=== PATIENT | female | born 1960 | race Caucasian/White ===

== ENCOUNTER 2018-01-13 13:14 | Emergency (ER) | payer MEDICARE, MEDICAID, SELFPAY ==
[2018-01-13] VITALS (49 sets, daily range): BP systolic 117–153; BP diastolic 55–100; PULSE 57–88; RESP 11–27; TEMP 36.7; O2SAT 93–100
--- NOTE | 2018-01-13 13:58 | DI.RAD_ITS ---
SYMPTOMS/DIAGNOSIS: CHEST PAIN CHEST X-RAY, PA AND LATERAL: Comparison is 01/06/11. The heart is normal in size. The lungs are clear. The mediastinal structures and pleura appear intact. IMPRESSION: Normal chest.
[2018-01-13] MEDS: Aspirin 81 MG CHEW 243 MG CH (14:29)
[2018-01-13 14:36] LABS: Abs Immature Grans 0.02 k/cumm (0.0-0.09); Absolute Basophil Count 0.05 k/cumm (0.0-0.2); Absolute Eosinophil Count 0.15 k/cumm (0.0-0.7); Absolute Lymphocyte Count 1.87 k/cumm (1.2-3.4); Absolute Monocyte Count 0.41 k/cumm (0.11-0.7); Absolute Neutrophil Count 2.91 k/cumm (1.2-6.7); Basophils % 0.9; Eosinophils % 2.8; HCT 38.4 % (36.0-46.0); HGB 12.7 g/dL (12.0-15.5); Immature Grans % 0.4; Lymphocytes % 34.6; Mean Corp. HGB Concentration 33.1 g/dL (32.0-36.0); Mean Corpuscular Volume 90.8 fL (80-95); Mean Platelet Volume 9.5 fL (8.0-11.0); Monocytes % 7.6; Neutrophils % 53.7; Platelet Count 217 x1000/uL (130-400); RBC 4.23 m/cumm (4.00-5.20); RBC Distribution Width 12.9 % (11.7-14.6); White Blood Cell Count 5.41 k/cumm (4.4-10.8)
[2018-01-13 15:10] LABS: ALT 49 U/L (12-78); AST 31 U/L (15-37); Albumin 3.7 g/dL (3.4-5.0); Alkaline Phosphatase 118 U/L (46-116); BUN 13 mg/dL (7-18); Bilirubin, Total 0.2 mg/dL (0.2-1.0); CREATININE 0.78 mg/dL (0.55-1.02); Calcium 8.6 mg/dL (8.5-10.1); Chloride 102 mmol/L (98-107); Glucose 184 mg/dL (70-100); Magnesium 1.9 mg/dL (1.8-2.4); NT-proBNP 27 pg/mL; Potassium 3.7 mmol/L (3.5-5.1); Sodium 140 mmol/L (136-145); Total Protein 7.6 g/dL (6.4-8.2)
[2018-01-13 15:28] LABS: Troponin I < 0.02 ng/mL (0.00-0.06)
[2018-01-13 18:16] LABS: Troponin I < 0.02 ng/mL (0.00-0.06)
--- NOTE | 2018-01-13 18:23 | W.ED.GENAD ---
Discharge Plan Disposition Patient Disposition: HOME Condition: Improving Discharge Details Chief Complaint: Chest Pain Clinical Impression: Chest pain, atypical Primary Care Provider: Etelvina Villela ED Provider: Hill Leone Home Meds and New Rx's Prescriptions: No Action calcium citrate-vitamin D3 1 EACH tablet 2 tab PO HS RF: 0 vitamin B complex 1 EACH capsule 1 cap PO DAILY RF: 0 cinnamon bark 500 MG capsule 1 cap PO BID RF: 0 blood sugar diagnostic [Blood Glucose Test] 1 EACH strip 1 ea Miscellaneous DAILY Qty: 100 RF: 4 lidocaine-prilocaine 30 GM cream 30 gm Topical Q4H PRN Qty: 3 RF: 6 duloxetine [Cymbalta] 60 MG capsule,delayed release(DR/EC) 60 mg PO DAILY Qty: 90 RF: 3 metformin 500 MG tablet 500 mg PO BID Qty: 180 RF: 4 carbamazepine 200 MG tablet 200 mg PO BID Qty: 180 RF: 3 levothyroxine 125 MCG tablet 125 mcg PO DAILY Qty: 90 RF: 4 pravastatin 20 MG tablet 20 mg PO DAILY Qty: 90 RF: 4 naproxen 500 MG tablet 500 mg PO BID Qty: 60 RF: 4 cyclobenzaprine 5 MG tablet 5 mg PO tid prn Qty: 20 RF: 0 aspirin [Aspirin Low-Strength] 81 MG tablet,chewable 81 mg PO DAILY RF: 0 Discharge Instructions Instructions: Chest Pain (ED) Additional Instructions: Return immediately to the emergency department for any new or worsening symptoms otherwise continue to take your medications as prescribed and follow-up with your primary care provider next week for reexamination. Referrals: Etelvina Villela NP [Primary Care Provider] - 5 days Discharge Data Discharge Date/Time-TO BE ENTERED AT DEPARTURE: 01/13/18 18:30 Medical Decision Making Patient presenting to the emergency department for chest pain and shortness of breath. Patient reports that she has a history of an abnormal valve but is unsure what this is. Patient denies ever having symptoms like this before. Patient states pain is 7 out of 10 and activity does not seem to improve or worsen her symptoms. Physical exam is unremarkable and there is no murmur appreciated on exam at this time and pulmonary exam is also unremarkable. Plan to do labs and rule out ACS along with chest x-ray. Patient offered pain medication but denied need for any medication at this time. Review of initial labs showed negative troponin and otherwise unremarkable nondiagnostic labs.. Plan to perform second troponin to rule out ACS completely.. Patient reassessed and stated some improvement in discomfort but with some radiation of pain into the back. I reexamined the chest and still had no cardiac findings but did note some reproducible chest pain that seemed to worsen patient's symptoms when pressing on the left mid axillary region. This makes me have a suspicious more of a chest wall pain compared to cardiac nature but still plan on following through with second troponin. After review of second patient reassessed again states pain is significantly down and that she feels like she is ready to go home. Does patient diagnosed with atypical chest pain and informed that he should return for any new or worsening symptoms otherwise placed upon care management was to have a follow-up appointment preferably in the next 5 days for reassessment. After discussion of diagnosis and plan of care patient is no further needs, questions, or concerns and states clear understanding to return to the emergency department for any worsening symptoms. HPI General Mode of arrival: ambulatory. Date/Time Provider Initiated Documentation: 01/13/18 13:46. Limitations to Documentation: no limitations. Information obtained by: patient and RN notes reviewed. History of Present Illness 57 year old F presents to the emergency department with the chief complaint of Chest pain, described as moderate, with intensity rated at 7. Quality is described as aching and sharp, and is localized to the chest. Patient reports radiation to back. Patient started experiencing this hour(s) (3) and it has been constant. No relieving factors improve symptom(s), No exacerbating factors reported . Patient notes no other symptoms.. Patient did receive the following treatments prior to arrival, none Related Data Home Medications Medication Instructions Recorded Confirmed calcium citrate-vitamin D3 2 tab PO HS 07/06/12 01/13/18 vitamin B complex 1 cap PO DAILY 07/06/12 01/13/18 cinnamon bark 1 cap PO BID 07/07/12 01/13/18 aspirin [Aspirin Low-Strength] 81 mg PO DAILY 12/21/13 01/13/18 blood sugar diagnostic [Blood #100 strip 10/08/14 01/13/18 Glucose Test] lidocaine-prilocaine 30 gm TOPICAL Q4H PRN #3 tube 12/10/15 01/13/18 duloxetine [Cymbalta] 60 mg PO DAILY #90 tab-cap 12/23/16 01/13/18 carbamazepine 200 mg PO BID #180 tab-cap 02/02/17 01/13/18 cyclobenzaprine 5 mg PO tid prn #20 tab-cap 02/02/17 01/13/18 levothyroxine 125 mcg PO DAILY #90 tab-cap 02/02/17 01/13/18 metformin 500 mg PO BID #180 tab-cap 02/02/17 01/13/18 naproxen 500 mg PO BID #60 mg 02/02/17 01/13/18 pravastatin 20 mg PO DAILY #90 tab-cap 02/02/17 01/13/18 Previous Rx's Medication Instructions Recorded carbamazepine 200 mg PO BID #180 tab-cap 02/02/17 cyclobenzaprine 5 mg PO tid prn #20 tab-cap 02/02/17 levothyroxine 125 mcg PO DAILY #90 tab-cap 02/02/17 metformin 500 mg PO BID #180 tab-cap 02/02/17 naproxen 500 mg PO BID #60 mg 02/02/17 pravastatin 20 mg PO DAILY #90 tab-cap 02/02/17 Allergies Allergy/AdvReac Type Severity Reaction Status Date / Time Penicillins Allergy Severe Anaphylaxsi Unverified 01/13/18 13:38 s mushroom Allergy Intermediate Hives Unverified 01/13/18 13:38 zonisamide Allergy Intermediate Generalized Unverified 01/13/18 13:38 rash shellfish derived Allergy Unverified 01/13/18 13:38 prednisone AdvReac Intermediate lucid Unverified 01/13/18 13:38 dreams simvastatin AdvReac Intermediate Myalgias Unverified 01/13/18 13:38 ibuprofen AdvReac Rectal Unverified 01/13/18 13:38 bleeding sulfamerazine AdvReac Myalgias Unverified 01/13/18 13:38 General Stated Complaint: Chest Pain PAM: 2 Review of Systems Constitutional Denies body ache(s), Denies chills, Denies fever(s), Denies lethargy and Denies malaise Eyes Denies change in vision ENT Denies dizziness Cardiovascular Reports as per HPI, Reports chest pain, Denies diaphoresis, Denies syncope, Denies rapid heart rate, Denies leg edema, Denies lightheadedness, Denies palpitations and Denies dyspnea Respiratory Denies cough, Denies pain with cough and Denies dyspnea Gastrointestinal Denies abdominal pain, Reports heartburn, Denies nausea and Denies vomiting Genitourinary Denies dysuria Neurologic Denies dizziness and Denies syncope Endocrine Denies palpitations PFS Family History Mother Diabetes Mental disorder Father No problems noted. Sister No problems noted. Grandfather Essential hypertension Grandfather No problems noted. Grandmother No problems noted. Grandmother No problems noted. Sister No problems noted. Sister No problems noted. Son No problems noted. Daughter Depression Medical History DM (diabetes mellitus screen) Diabetic peripheral neuropathy Fibromyalgia Heart murmur Hypothyroidism Social History Smoking/Tobacco Use Status: Former Tobacco Use Surgical History Abdominal hysterectomy (~1993) Arthroplasty of knee (01/12/10) Colonoscopy - MAC (02/06/16) EXCISION OF (~1986) Oophrectomy, Both (~2003) Open Carpal Tunnel release Thyroid (~2002) Exam Const General: cooperative, healthy appearing, comfortable and no acute distress Nutritional Appearance: average body habitus Orientation: alert, awake and oriented x3 Neck Neck: normal visual inspection, full ROM, no lymphadenopathy, no meningeal signs, trachea midline, supple, no tracheal deviation and no JVD Resp Effort & Inspection: normal respiratory effort and able to speak in complete sentences Auscultation: clear to auscultation bilaterally Cardio Rate: regular rate Rhythm: regular rhythm Heart Sounds: S1 normal, S2 normal, normal S1 and S2, no click, no gallops, no murmurs and no rubs Bruits: no abdominal aortic bruits and no carotid bruits Pulses: radial pulses present bilaterally 2+ GI Inspection: normal to inspection Palpation: soft and no hepatosplenomegaly Auscultation: normal bowel sounds Skin General skin exam: no rashes or lesions noted and dry skin Neuro General: alert, awake, oriented x3, gait normal, tone normal, moves all extremities and no focal motor deficits Course Vital Signs Respiratory Rate 13 01/13/18 13:22 Pulse Oximetry 97 01/13/18 13:22 Temperature 36.7 C 01/13/18 13:28 Temperature Source Skin 01/13/18 13:28 Pulse 69 01/13/18 18:15 Pulse 76 01/13/18 18:15 Respiratory Rate 22 01/13/18 18:15 Respiratory Effort 01/13/18 15:47 Respiratory Depth Normal 01/13/18 15:47 Respiratory Pattern Normal 01/13/18 15:47 Blood Pressure 134/72 01/13/18 18:15 Blood Pressure Mean 87 01/13/18 18:15 Blood Pressure Position Sitting 01/13/18 13:28 Pulse Oximetry 97 01/13/18 18:15 Oxygen Delivery Method Room Air 01/13/18 13:28 Oxygen Flow Rate 0 01/13/18 13:28 Pain Level 7 01/13/18 13:28 Lab/Test Results Lab/Test Results: Laboratory Tests Range/Units 01/13/18 01/13/18 01/13/18 13:35 13:35 17:35 WBC (4.4-10.8) k/cumm 5.41 RBC (4.00-5.20) m/cumm 4.23 Hgb (12.0-15.5) g/dL 12.7 Hct (36.0-46.0) % 38.4 MCV (80-95) fL 90.8 MCH (27.0-33.0) pg 30.0 MCHC (32.0-36.0) g/dL 33.1 RDW (11.7-14.6) % 12.9 Plt Count (130-400) x1000/uL 217 MPV (8.0-11.0) fL 9.5 Immature Gran % 0.4 Neutrophils % 53.7 Lymphocytes % 34.6 Monocytes % 7.6 Eosinophils % 2.8 Basophils % 0.9 Absolute Neutrophils (1.2-6.7) k/cumm 2.91 Absolute Lymphocytes (1.2-3.4) k/cumm 1.87 Absolute Monocytes (0.11-0.7) k/cumm 0.41 Absolute Eosinophils (0.0-0.7) k/cumm 0.15 Absolute Basophils (0.0-0.2) k/cumm 0.05 Sodium (136-145) mmol/L 140 Potassium (3.5-5.1) mmol/L 3.7 Chloride (98-107) mmol/L 102 Carbon Dioxide (21.0-32.0) mmol/L 28.0 Anion Gap (3-11) mmol/L 10.0 BUN (7-18) mg/dL 13 Creatinine (0.55-1.02) mg/dL 0.78 Estimated GFR/1.73 m2 (mL/min/1.73m2) >= 60.00 Glucose (70-100) mg/dL 184 H Calcium (8.5-10.1) mg/dL 8.6 Magnesium (1.8-2.4) mg/dL 1.9 Total Bilirubin (0.2-1.0) mg/dL 0.2 AST (15-37) U/L 31 ALT (12-78) U/L 49 Alkaline Phosphatase (46-116) U/L 118 H Troponin I (0.00-0.06) ng/mL < 0.02 < 0.02 NT-Pro-B Natriuret Pep ( - 299) pg/mL 27 Total Protein (6.4-8.2) g/dL 7.6 Albumin (3.4-5.0) g/dL 3.7
--- NOTE | 2018-01-13 18:26 | ED.GENADUL_ITS ---
Discharge Plan Disposition Patient Disposition: HOME Condition: Improving Discharge Details Chief Complaint: Chest Pain Clinical Impression: Chest pain, atypical Primary Care Provider: Etelvina Villela ED Provider: Hill Leone Home Meds and New Rx's Prescriptions: No Action calcium citrate-vitamin D3 1 EACH tablet 2 tab PO HS RF: 0 vitamin B complex 1 EACH capsule 1 cap PO DAILY RF: 0 cinnamon bark 500 MG capsule 1 cap PO BID RF: 0 blood sugar diagnostic [Blood Glucose Test] 1 EACH strip 1 ea Miscellaneous DAILY Qty: 100 RF: 4 lidocaine-prilocaine 30 GM cream 30 gm Topical Q4H PRN Qty: 3 RF: 6 duloxetine [Cymbalta] 60 MG capsule,delayed release(DR/EC) 60 mg PO DAILY Qty: 90 RF: 3 metformin 500 MG tablet 500 mg PO BID Qty: 180 RF: 4 carbamazepine 200 MG tablet 200 mg PO BID Qty: 180 RF: 3 levothyroxine 125 MCG tablet 125 mcg PO DAILY Qty: 90 RF: 4 pravastatin 20 MG tablet 20 mg PO DAILY Qty: 90 RF: 4 naproxen 500 MG tablet 500 mg PO BID Qty: 60 RF: 4 cyclobenzaprine 5 MG tablet 5 mg PO tid prn Qty: 20 RF: 0 aspirin [Aspirin Low-Strength] 81 MG tablet,chewable 81 mg PO DAILY RF: 0 Discharge Instructions Instructions: Chest Pain (ED) Additional Instructions: Return immediately to the emergency department for any new or worsening symptoms otherwise continue to take your medications as prescribed and follow- up with your primary care provider next week for reexamination. Referrals: Etelvina Villela NP [Primary Care Provider] - 5 days Discharge Data Discharge Date/Time-TO BE ENTERED AT DEPARTURE: 01/13/18 18:30 Medical Decision Making Patient presenting to the emergency department for chest pain and shortness of breath. Patient reports that she has a history of an abnormal valve but is unsure what this is. Patient denies ever having symptoms like this before. Patient states pain is 7 out of 10 and activity does not seem to improve or worsen her symptoms. Physical exam is unremarkable and there is no murmur appreciated on exam at this time and pulmonary exam is also unremarkable. Plan to do labs and rule out ACS along with chest x-ray. Patient offered pain medication but denied need for any medication at this time. Review of initial labs showed negative troponin and otherwise unremarkable nondiagnostic labs.. Plan to perform second troponin to rule out ACS completely.. Patient reassessed and stated some improvement in discomfort but with some radiation of pain into the back. I reexamined the chest and still had no cardiac findings but did note some reproducible chest pain that seemed to worsen patient's symptoms when pressing on the left mid axillary region. This makes me have a suspicious more of a chest wall pain compared to cardiac nature but still plan on following through with second troponin. After review of second patient reassessed again states pain is significantly down and that she feels like she is ready to go home. Does patient diagnosed with atypical chest pain and informed that he should return for any new or worsening symptoms otherwise placed upon care management was to have a follow- up appointment preferably in the next 5 days for reassessment. After discussion of diagnosis and plan of care patient is no further needs, questions , or concerns and states clear understanding to return to the emergency department for any worsening symptoms. HPI General Mode of arrival: ambulatory . Date/Time Provider Initiated Documentation: 01/13/18 13:46 . Limitations to Documentation: no limitations . Information obtained by: patient and RN notes reviewed . History of Present Illness 57 year old F presents to the emergency department with the chief complaint of Chest pain, described as moderate, with intensity rated at 7. Quality is described as aching and sharp, and is localized to the chest. Patient reports radiation to back. Patient started experiencing this hour(s) (3) and it has been constant. No relieving factors improve symptom(s), No exacerbating factors reported . Patient notes no other symptoms.. Patient did receive the following treatments prior to arrival, none Related Data Home Medications Medication Instructions Recorded Confirmed calcium citrate-vitamin D3 2 tab PO HS 07/06/12 01/13/18 vitamin B complex 1 cap PO DAILY 07/06/12 01/13/18 cinnamon bark 1 cap PO BID 07/07/12 01/13/18 aspirin [Aspirin Low-Strength] 81 mg PO DAILY 12/21/13 01/13/18 blood sugar diagnostic [Blood #100 strip 10/08/14 01/13/18 Glucose Test] lidocaine-prilocaine 30 gm TOPICAL Q4H PRN #3 tube 12/10/15 01/13/18 duloxetine [Cymbalta] 60 mg PO DAILY #90 tab-cap 12/23/16 01/13/18 carbamazepine 200 mg PO BID #180 tab-cap 02/02/17 01/13/18 cyclobenzaprine 5 mg PO tid prn #20 tab-cap 02/02/17 01/13/18 levothyroxine 125 mcg PO DAILY #90 tab-cap 02/02/17 01/13/18 metformin 500 mg PO BID #180 tab-cap 02/02/17 01/13/18 naproxen 500 mg PO BID #60 mg 02/02/17 01/13/18 pravastatin 20 mg PO DAILY #90 tab-cap 02/02/17 01/13/18 Previous Rx's Medication Instructions Recorded carbamazepine 200 mg PO BID #180 tab-cap 02/02/17 cyclobenzaprine 5 mg PO tid prn #20 tab-cap 02/02/17 levothyroxine 125 mcg PO DAILY #90 tab-cap 02/02/17 metformin 500 mg PO BID #180 tab-cap 02/02/17 naproxen 500 mg PO BID #60 mg 02/02/17 pravastatin 20 mg PO DAILY #90 tab-cap 02/02/17 Allergies Allergy/AdvReac Type Severity Reaction Status Date / Time Penicillins Allergy Severe Anaphylaxsi Unverified 01/13/18 13:38 s mushroom Allergy Intermediate Hives Unverified 01/13/18 13:38 zonisamide Allergy Intermediate Generalized Unverified 01/13/18 13:38 rash shellfish derived Allergy Unverified 01/13/18 13:38 prednisone AdvReac Intermediate lucid Unverified 01/13/18 13:38 dreams simvastatin AdvReac Intermediate Myalgias Unverified 01/13/18 13:38 ibuprofen AdvReac Rectal Unverified 01/13/18 13:38 bleeding sulfamerazine AdvReac Myalgias Unverified 01/13/18 13:38 General Stated Complaint: Chest Pain PAM: 2 Review of Systems Constitutional Denies body ache(s), Denies chills, Denies fever(s), Denies lethargy and Denies malaise Eyes Denies change in vision ENT Denies dizziness Cardiovascular Reports as per HPI, Reports chest pain, Denies diaphoresis, Denies syncope, Denies rapid heart rate, Denies leg edema, Denies lightheadedness, Denies palpitations and Denies dyspnea Respiratory Denies cough, Denies pain with cough and Denies dyspnea Gastrointestinal Denies abdominal pain, Reports heartburn, Denies nausea and Denies vomiting Genitourinary Denies dysuria Neurologic Denies dizziness and Denies syncope Endocrine Denies palpitations PFS Family History Mother Diabetes Mental disorder Father No problems noted. Sister No problems noted. Grandfather Essential hypertension Grandfather No problems noted. Grandmother No problems noted. Grandmother No problems noted. Sister No problems noted. Sister No problems noted. Son No problems noted. Daughter Depression Medical History DM (diabetes mellitus screen) Diabetic peripheral neuropathy Fibromyalgia Heart murmur Hypothyroidism Social History Smoking/Tobacco Use Status: Former Tobacco Use Surgical History Abdominal hysterectomy (~1993) Arthroplasty of knee (01/12/10) Colonoscopy - MAC (02/06/16) EXCISION OF (~1986) Oophrectomy, Both (~2003) Open Carpal Tunnel release Thyroid (~2002) Exam Const General: cooperative, healthy appearing, comfortable and no acute distress Nutritional Appearance: average body habitus Orientation: alert, awake and oriented x3 Neck Neck: normal visual inspection, full ROM, no lymphadenopathy, no meningeal signs , trachea midline, supple, no tracheal deviation and no JVD Resp Effort & Inspection: normal respiratory effort and able to speak in complete sentences Auscultation: clear to auscultation bilaterally Cardio Rate: regular rate Rhythm: regular rhythm Heart Sounds: S1 normal, S2 normal, normal S1 and S2, no click, no gallops, no murmurs and no rubs Bruits: no abdominal aortic bruits and no carotid bruits Pulses: radial pulses present bilaterally 2+ GI Inspection: normal to inspection Palpation: soft and no hepatosplenomegaly Auscultation: normal bowel sounds Skin General skin exam: no rashes or lesions noted and dry skin Neuro General: alert, awake, oriented x3, gait normal, tone normal, moves all extremities and no focal motor deficits Course Vital Signs Respiratory Rate 13 01/13/18 13:22 Pulse Oximetry 97 01/13/18 13:22 Temperature 36.7 C 01/13/18 13:28 Temperature Source Skin 01/13/18 13:28 Pulse 69 01/13/18 18:15 Pulse 76 01/13/18 18:15 Respiratory Rate 22 01/13/18 18:15 Respiratory Effort 01/13/18 15:47 Respiratory Depth Normal 01/13/18 15:47 Respiratory Pattern Normal 01/13/18 15:47 Blood Pressure 134/72 01/13/18 18:15 Blood Pressure Mean 87 01/13/18 18:15 Blood Pressure Position Sitting 01/13/18 13:28 Pulse Oximetry 97 01/13/18 18:15 Oxygen Delivery Method Room Air 01/13/18 13:28 Oxygen Flow Rate 0 01/13/18 13:28 Pain Level 7 01/13/18 13:28 Lab/Test Results Lab/Test Results: Laboratory Tests Range/Units 01/13/18 01/13/18 01/13/18 13:35 13:35 17:35 WBC (4.4-10.8) k/cumm 5.41 RBC (4.00-5.20) m/cumm 4.23 Hgb (12.0-15.5) g/dL 12.7 Hct (36.0-46.0) % 38.4 MCV (80-95) fL 90.8 MCH (27.0-33.0) pg 30.0 MCHC (32.0-36.0) g/dL 33.1 RDW (11.7-14.6) % 12.9 Plt Count (130-400) x1000/uL 217 MPV (8.0-11.0) fL 9.5 Immature Gran % 0.4 Neutrophils % 53.7 Lymphocytes % 34.6 Monocytes % 7.6 Eosinophils % 2.8 Basophils % 0.9 Absolute Neutrophils (1.2-6.7) k/cumm 2.91 Absolute Lymphocytes (1.2-3.4) k/cumm 1.87 Absolute Monocytes (0.11-0.7) k/cumm 0.41 Absolute Eosinophils (0.0-0.7) k/cumm 0.15 Absolute Basophils (0.0-0.2) k/cumm 0.05 Sodium (136-145) mmol/L 140 Potassium (3.5-5.1) mmol/L 3.7 Chloride (98-107) mmol/L 102 Carbon Dioxide (21.0-32.0) mmol/L 28.0 Anion Gap (3-11) mmol/L 10.0 BUN (7-18) mg/dL 13 Creatinine (0.55-1.02) mg/dL 0.78 Estimated GFR/1.73 m2 (mL/min/1.73m2) >= 60.00 Glucose (70-100) mg/dL 184 H Calcium (8.5-10.1) mg/dL 8.6 Magnesium (1.8-2.4) mg/dL 1.9 Total Bilirubin (0.2-1.0) mg/dL 0.2 AST (15-37) U/L 31 ALT (12-78) U/L 49 Alkaline Phosphatase (46-116) U/L 118 H Troponin I (0.00-0.06) ng/mL < 0.02 < 0.02 NT-Pro-B Natriuret Pep ( - 299) pg/mL 27 Total Protein (6.4-8.2) g/dL 7.6 Albumin (3.4-5.0) g/dL 3.7
== END 2018-01-13 18:30 | disposition home or self-care (01) ==
PROVIDERS: Emergency Provider Nurse Practitioner Family; PCP Nurse Practitioner Family
DX: R07.89 Other chest pain (principal); E11.40 Type 2 diabetes mellitus with diabetic neuropathy, unspecified; Z79.84 Long term (current) use of oral hypoglycemic drugs
CPT/HCPCS: 36415; 80053; 93005; 99285; 71046; 83735; 83880; 84484; 85025; 93010; 99282

== ENCOUNTER 2018-01-16 18:27 | Emergency (ER) | payer MEDICARE, MEDICAID, SELFPAY ==
[2018-01-16 18:32] VITALS: BP 125/58; PULSE 76; RESP 18; TEMP 36.8; O2SAT 97
--- NOTE | 2018-01-16 18:47 | DI.CT_ITS ---
SYMPTOM/DIAGNOSIS: CHEST PAIN, RADIATES TO BACK CT ANGIOGRAPHY CHEST, ABDOMEN AND PELVIS: 01/16 CT angiography of the chest, abdomen and pelvis was performed with intravenous infusion of 100 cc Omnipaque 350. The lungs are clear except for a tiny calcified left lower lobe intrapulmonary nodule consistent with healed granulomatous disease. Tracheobronchial tree appears intact. No mediastinal hilar axillary or supraclavicular adenopathy. Thoracic aorta and major branches are normal. No evidence of pulmonary embolic disease. No pleural effusion seen. Liver appears mildly enlarged and there is probable hepatic steatosis. Spleen is unremarkable in appearance. Gallbladder and bile ducts are normal. Pancreas is unremarkable in appearance. Adrenals and kidneys appear normal. No urinary tract calcification or obstruction. No abdominal or pelvic adenopathy. No abdominal wall hernia. Appendix appears normal. There is question of mild wall thickening of multiple loops of mid to distal small bowel and possibly ascending colon as well. The findings are questionable but could be associated with enteritis. Please correlate clinically. No fat edema seen in the mesentery or retroperitoneum. Abdominal aorta shows moderately calcified wall. No aneurysm or dissection. Major arterial branches appear normal. CONCLUSION: No evidence of acute aortic dissection or aneurysm. Question wall thickening, small bowel and ascending colon, please correlate clinically.
--- NOTE | 2018-01-16 18:49 | W.ED.GENAD ---
Discharge Plan Disposition Patient Disposition: HOME Condition: Good Discharge Details Chief Complaint: Chest Pain Clinical Impression: Hypothyroidism, Chest pain, Chest pain, musculoskeletal, History of IBS Primary Care Provider: Etelvina Villela ED Provider: Anthony Vega Home Meds and New Rx's Prescriptions: No Action calcium citrate-vitamin D3 1 EACH tablet 2 tab PO HS RF: 0 vitamin B complex 1 EACH capsule 1 cap PO DAILY RF: 0 cinnamon bark 500 MG capsule 1 cap PO BID RF: 0 blood sugar diagnostic [Blood Glucose Test] 1 EACH strip 1 ea Miscellaneous DAILY Qty: 100 RF: 4 lidocaine-prilocaine 30 GM cream 30 gm Topical Q4H PRN Qty: 3 RF: 6 duloxetine [Cymbalta] 60 MG capsule,delayed release(DR/EC) 60 mg PO DAILY Qty: 90 RF: 3 metformin 500 MG tablet 500 mg PO BID Qty: 180 RF: 4 carbamazepine 200 MG tablet 200 mg PO BID Qty: 180 RF: 3 levothyroxine 125 MCG tablet 125 mcg PO DAILY Qty: 90 RF: 4 pravastatin 20 MG tablet 20 mg PO DAILY Qty: 90 RF: 4 naproxen 500 MG tablet 500 mg PO BID Qty: 60 RF: 4 cyclobenzaprine 5 MG tablet 5 mg PO tid prn Qty: 20 RF: 0 aspirin [Aspirin Low-Strength] 81 MG tablet,chewable 81 mg PO DAILY RF: 0 Discharge Instructions Instructions: Chest Pain (ED), Hypothyroidism (ED) Additional Instructions: Please follow-up with your primary care provider for alteration of your levothyroxine dose. I do feel that you would benefit from an increase in your levothyroxine dose. Please follow-up with your diet technician registered as soon as possible for reassessment. Please avoid any spicy foods, and drink plenty of water. If you notice any worsening of your symptoms, or any new symptoms such as vomiting, diarrhea, fever, chills, shortness of breath, chest pain, numbness, weakness, or fainting , please return immediately to the emergency department for reevaluation. Please follow up with your primary care provider as soon as possible for reassessment and reevaluation. As always, it was a pleasure participating in your medical care today. Referrals: Etelvina Villela NP [Primary Care Provider] - Medical Decision Making This is a 57-year-old female who presents for evaluation of chest pain. She was seen in the emergency department within the last 4 days and had a negative cardiac workup with serial troponins, normal EKGs and normal imaging studies. She presents today for continuing pain, she states now it radiates to her neck and left shoulder, as well as her back. She did have a negative stress test 2 years ago. It is not exertional. It comes on randomly throughout the night and the day. It is not relieved or worsened by any activities or medication. Due to her change in symptoms, we will repeat the cardiac workup, and get a CT angios to rule out dissection. We will rehydrate the patient, discussed for any other acute etiology. There is a reproducible musculoskeletal component noted on exam, I feel this may be part of her symptomatology. Differential also does include Prinzmetal's angina. EKG 18: 33 Rate 73, intervals normal, sinus rhythm, no ST elevations or depressions. Q waves in lead III. No other significant abnormality 9 PM patient's laboratory workup is benign. EKG is unremarkable. Troponin is normal. She has no white count, no fever chills or tachycardia. CT angios of the chest demonstrates no acute process. Per virtual radiology. CT angiogram of the abdomen continues to demonstrate a normal aorta however there is diffuse wall thickening and multiple loops of the mid and distal small bowel. Diffuse wall thickening also seen in the ascending colon. No evidence of obstruction. Please correlate clinically with colitis versus enteritis. Patient does have a history of irritable bowel syndrome. She did have one episode of diarrhea yesterday. She states that this is very similar to her norm. She denies any bloody stools. Repeat abdominal exam demonstrates no significant abdominal tenderness whatsoever. She has no white count, no bandemia, no significant left shift. No fever or tachycardia. I feel that infectious colitis is unlikely and she is mainly suffering from her chronic irritable bowel syndrome. No current chest pain, musculoskeletal reproducible components, and a negative CT angios, as well as her multiple serial troponins within the last 72 hours, and other EKGs which continued to be benign I feel that her symptoms are certainly not secondary to severe cardiac ischemia. I feel that her signs and symptoms more consistent with potential musculoskeletal etiology. However I do feel that she would benefit from close follow-up with her diet technician registered. Additionally her TSH is notably elevated, and I feel this may be a cause of the fatigue that she has been having as of late. Patient will be discharged home with close follow-up. We discussed red flags for which to return. I have extensively reviewed the treatment plan and discharge instructions with the patient. I have addressed all patient concerns at this time. The patient was made aware of what symptoms to monitor for that would warrant a return to the emergency department. Discussed the plan with the patient, they demonstrate verbal understanding and agreement with our assessment and plan at this time. Impression: 1. Aorta is unremarkable. No evidence of dissection. No evidence of aneurysm. 2. No evidence of pulmonary embolus. Impression: 1. Aorta is unremarkable. No evidence of dissection. No evidence of aneurysm. 2. Diffuse wall thickening in multiple loops of mid and distal small bowel. Diffuse wall thickening also seen in the ascending colon. No evidence of obstruction. Please correlate clinically for enteritis and colitis. HPI General Date/Time Provider Initiated Documentation: 01/16/18 18:28. HPI Narrative: This is a 57-year old female with a past medical history of diabetes mellitus, hyperlipidemia, thyroid disease, fibromyalgia, irritable bowel syndrome, who had a stress test that was -2 years ago. She presents today for evaluation of chest pain. She was here in the emergency department 3 days ago, at that time she was worked up for potential cardiac etiology. Chest x-ray and troponin EKG were benign. She was discharged home with instructions for follow-up with PCP. The patient states that since then her pain has not improved, in fact it is slightly worsened. She describes it as a sharp achy-like sensation that comes and goes. It is nonexertional. It is not related to food. She states that sometimes it wakes her up out of sleep, or other times occurs randomly throughout the day. The pain is increasing in its radiation. Initially it was just in her chest, however now she states it radiates to her back, left arm, and neck. She denies any syncope, headache, abdominal pain, vomiting, or worsening diarrhea. She denies any cough, or shortness of breath. She denies any other aggravating or relieving factors at this time. She does take a daily 81 mg aspirin. Patient denies any recent surgeries. She denies any pertinent family history. She denies any current tobacco IV or illicit drug use. Related Data Home Medications Medication Instructions Recorded Confirmed calcium citrate-vitamin D3 2 tab PO HS 07/06/12 01/16/18 vitamin B complex 1 cap PO DAILY 07/06/12 01/16/18 cinnamon bark 1 cap PO BID 07/07/12 01/16/18 aspirin [Aspirin Low-Strength] 81 mg PO DAILY 12/21/13 01/16/18 blood sugar diagnostic [Blood #100 strip 10/08/14 01/16/18 Glucose Test] lidocaine-prilocaine 30 gm TOPICAL Q4H PRN #3 tube 12/10/15 01/16/18 duloxetine [Cymbalta] 60 mg PO DAILY #90 tab-cap 12/23/16 01/16/18 carbamazepine 200 mg PO BID #180 tab-cap 02/02/17 01/16/18 cyclobenzaprine 5 mg PO tid prn #20 tab-cap 02/02/17 01/16/18 levothyroxine 125 mcg PO DAILY #90 tab-cap 02/02/17 01/16/18 metformin 500 mg PO BID #180 tab-cap 02/02/17 01/16/18 naproxen 500 mg PO BID #60 mg 02/02/17 01/16/18 pravastatin 20 mg PO DAILY #90 tab-cap 02/02/17 01/16/18 Previous Rx's Medication Instructions Recorded carbamazepine 200 mg PO BID #180 tab-cap 02/02/17 cyclobenzaprine 5 mg PO tid prn #20 tab-cap 02/02/17 levothyroxine 125 mcg PO DAILY #90 tab-cap 02/02/17 metformin 500 mg PO BID #180 tab-cap 02/02/17 naproxen 500 mg PO BID #60 mg 02/02/17 pravastatin 20 mg PO DAILY #90 tab-cap 02/02/17 Allergies Allergy/AdvReac Type Severity Reaction Status Date / Time Penicillins Allergy Severe Anaphylaxsi Unverified 01/16/18 18:38 s mushroom Allergy Intermediate Hives Unverified 01/16/18 18:38 zonisamide Allergy Intermediate Generalized Unverified 01/16/18 18:38 rash shellfish derived Allergy Unverified 01/16/18 18:38 prednisone AdvReac Intermediate lucid Unverified 01/16/18 18:38 dreams simvastatin AdvReac Intermediate Myalgias Unverified 01/16/18 18:38 ibuprofen AdvReac Rectal Unverified 01/16/18 18:38 bleeding sulfamerazine AdvReac Myalgias Unverified 01/16/18 18:38 General Stated Complaint: Chest Pain PAM: 3 Review of Systems Review of Systems All systems reviewed & are unremarkable except as noted in HPI and below Exam Narrative Exam Narrative: 1.Const: Well-nourished, Well-developed, appearing stated age 2.Eyes: PERRL, no conjunctival injection, and symmetrical lids. 3.ENT: Atraumatic external nose and ears. Moist MM. Neck: Symmetric, trachea midline, No thyromegaly. 4.CVS: +S1/S2, No murmurs or gallops. Peripheral pulses 2+ and equal in all extremities. Brisk capillary refill in all extremities. 5.RESP: Unlabored respiratory effort. Clear to auscultation bilaterally. No wheezes rales or rhonchi. Mild reproducible tenderness on palpation of anterior chest. 6.GI: Soft, Nontender/Nondistended, No hepatosplenomegaly. No guarding or rebound. 7.MSK: Normocephalic/Atraumatic, Extremities w/o deformity or ttp No cyanosis or clubbing, Normal movement of all extremities 8.Skin: Warm, Dry. No rashes or lesions. 9.Neuro: sales representative consultant II-XII grossly intact. Sensation grossly intact, no focal neurologic deficits. 10.Psych: (AAO) x3. Appropriate mood and affect Course Vital Signs Temperature 36.8 C 01/16/18 18:32 Pulse 76 01/16/18 18:32 Respiratory Rate 18 01/16/18 18:32 Blood Pressure 125/58 L 01/16/18 18:32 Pulse Oximetry 97 01/16/18 18:32 Temperature 36.8 C 01/16/18 18:32 Temperature Source Temporal Artery Scan 01/16/18 18:32 Pulse 76 01/16/18 18:32 Respiratory Rate 18 01/16/18 18:32 Respiratory Effort Non-Labored 01/16/18 18:36 Respiratory Depth Normal 01/16/18 18:36 Respiratory Pattern Normal 01/16/18 18:36 Blood Pressure 125/58 L 01/16/18 18:32 Blood Pressure Position Sitting 01/16/18 18:32 Pulse Oximetry 97 01/16/18 18:32 Oxygen Delivery Method Room Air 01/16/18 18:32 Oxygen Flow Rate 0 01/16/18 18:32 Pain Level 10 01/16/18 18:32
[2018-01-16] MEDS: Acetaminophen 500 MG TAB 1000 MG PO (18:54)
[2018-01-16 19:40] LABS: Abs Immature Grans 0.02 k/cumm (0.0-0.09); Absolute Basophil Count 0.04 k/cumm (0.0-0.2); Absolute Eosinophil Count 0.15 k/cumm (0.0-0.7); Absolute Lymphocyte Count 2.26 k/cumm (1.2-3.4); Absolute Monocyte Count 0.57 k/cumm (0.11-0.7); Absolute Neutrophil Count 3.38 k/cumm (1.2-6.7); Basophils % 0.6; Eosinophils % 2.3; HCT 36.9 % (36.0-46.0); HGB 12.3 g/dL (12.0-15.5); Immature Grans % 0.3; Lymphocytes % 35.2; Mean Corp. HGB Concentration 33.3 g/dL (32.0-36.0); Mean Corpuscular Hemoglobin 29.9 pg (27.0-33.0); Mean Corpuscular Volume 89.6 fL (80-95); Mean Platelet Volume 9.7 fL (8.0-11.0); Monocytes % 8.9; Neutrophils % 52.7; Platelet Count 226 x1000/uL (130-400); RBC 4.12 m/cumm (4.00-5.20); RBC Distribution Width 12.9 % (11.7-14.6); White Blood Cell Count 6.42 k/cumm (4.4-10.8)
[2018-01-16] MEDS: Omnipaque 350 MG/ML 100 ML BTL IJ (20:08)
[2018-01-16] MEDS: Normal Saline 1,000 ML 1000 ML IV (20:13)
[2018-01-16 20:19] LABS: ALT 55 U/L (12-78); AST 35 U/L (15-37); Albumin 3.7 g/dL (3.4-5.0); Alkaline Phosphatase 120 U/L (46-116); Anion Gap 11.1 mmol/L (3-11); BUN 15 mg/dL (7-18); Bilirubin, Total 0.1 mg/dL (0.2-1.0); CO2 26.9 mmol/L (21.0-32.0); CREATININE 0.97 mg/dL (0.55-1.02); Calcium 8.6 mg/dL (8.5-10.1); Chloride 101 mmol/L (98-107); Estimated GFR 59.62 (mL/min/1.73m2); Glucose 190 mg/dL (70-100); Potassium 3.7 mmol/L (3.5-5.1); Sodium 139 mmol/L (136-145); TSH 10.36 uIU/mL (0.358-3.74); Total Protein 7.6 g/dL (6.4-8.2)
[2018-01-16 20:24] LABS: Troponin I < 0.02 ng/mL (0.00-0.06)
[2018-01-16] MEDS: Aspirin 325 MG TAB PO (20:38)
--- NOTE | 2018-01-16 20:50 | DI.VRAD_ITS ---
EXAM: CT Angiography Chest With Intravenous Contrast CLINICAL HISTORY: 57 years old, female; Pain; Chest pain; Radiating; Other: Chest pain radiating to back; Additional info: R/O dissection TECHNIQUE: Axial computed tomographic angiography images of the chest with intravenous contrast using pulmonary embolism protocol. MIP reconstructed images were created and reviewed. COMPARISON: No relevant prior studies available. FINDINGS: Pulmonary arteries: No evidence of pulmonary embolus. Aorta: Aorta is unremarkable. No evidence of dissection. No evidence of aneurysm. Lungs: No infiltrates. No mass lesion or nodule seen. Pleural space: Unremarkable. No significant effusion. No pneumothorax. Heart: Unremarkable. No cardiomegaly. No significant pericardial effusion. No evidence of RV dysfunction. Bones/joints: No acute fracture. No dislocation. Soft tissues: Unremarkable. Lymph nodes: Unremarkable. No enlarged lymph nodes. IMPRESSION: 1. Aorta is unremarkable. No evidence of dissection. No evidence of aneurysm. 2. No evidence of pulmonary embolus. EXAM: CT Angiography Abdomen and Pelvis With Intravenous Contrast CLINICAL HISTORY: 57 years old, female; Pain; Chest pain; Radiating; Other: Chest pain radiating to back; Additional info: R/O dissection TECHNIQUE: Axial computed tomographic angiography images of the abdomen and pelvis with intravenous contrast. MIP reconstructed images were created and reviewed. COMPARISON: CR XR CHEST 2V PA LATERAL 01/13/2018 2:32 PM FINDINGS: VASCULATURE: Aorta: Aorta is unremarkable. No evidence of dissection. No evidence of aneurysm. Celiac trunk and mesenteric arteries: No evidence of acute pathology. No occlusion or significant stenosis. Renal arteries: No evidence of acute pathology. No occlusion or significant stenosis. Iliac arteries: No evidence of acute pathology. No occlusion or significant stenosis. Lung bases: Unremarkable. No mass. No consolidation. ABDOMEN: Liver: Unremarkable. No mass. Gallbladder and bile ducts: Unremarkable. No calcified stones. No ductal dilation. Pancreas: Unremarkable. No ductal dilation. No mass. Spleen: Unremarkable. No splenomegaly. Adrenals: Unremarkable. No mass. Kidneys and ureters: Unremarkable. No hydronephrosis. No solid mass. Stomach and bowel: Diffuse wall thickening in multiple loops of mid and distal small bowel. Diffuse wall thickening also seen in the ascending colon. No evidence of obstruction. Colonic diverticulosis. No pericolonic inflammatory changes to suggest acute diverticulitis. PELVIS: Appendix: Normal appendix seen. Bladder: Unremarkable. No mass. Reproductive: Unremarkable as visualized. ABDOMEN and PELVIS: Intraperitoneal space: No free fluid or fluid collections. No inflammatory changes. No free air. Bones/joints: Degenerative changes in the spine. No evidence of fracture. No dislocation. Soft tissues: Unremarkable. Lymph nodes: Unremarkable. No enlarged lymph nodes. IMPRESSION: 1. Aorta is unremarkable. No evidence of dissection. No evidence of aneurysm. 2. Diffuse wall thickening in multiple loops of mid and distal small bowel. Diffuse wall thickening also seen in the ascending colon. No evidence of obstruction. Please correlate clinically for enteritis and colitis. Dictated and Authenticated by: Jake Schroeder MD. Ordering:DES RUCKER MD
[2018-01-16 21:44] VITALS: PULSE 67; RESP 16; O2SAT 94
[2018-01-16 21:50] VITALS: PULSE 70; RESP 15; O2SAT 95
[2018-01-16 21:52] VITALS: BP 115/51; PULSE 67; PULSE 73; RESP 16; O2SAT 94
[2018-01-18 16:36] LABS: Cholesterol 240 mg/dL (50-200); HDL Cholesterol 47 mg/dL (40-60); LDL CHOLESTEROL 142 mg/dL (<100); Triglyceride 325 mg/dL (30-150)
[2018-01-18 17:09] LABS: Hemoglobin A1C 7.5 % (4.5-6.2)
== END 2018-01-16 22:09 | disposition home or self-care (01) ==
PROVIDERS: Emergency Provider Student in an Organized Health Care Education/Training Program; PCP Nurse Practitioner Family
DX: E03.9 Hypothyroidism, unspecified (principal); R07.89 Other chest pain; K58.0 Irritable bowel syndrome with diarrhea; E11.9 Type 2 diabetes mellitus without complications; Z79.84 Long term (current) use of oral hypoglycemic drugs
CPT/HCPCS: 36415; 74177; 75635; 80053; 80061; 83721; 87340; 93005; 96360; 99285; 83036; 84443; 84484; 85025; 93010; 99284; J3490

== ENCOUNTER 2018-01-23 00:05 | Outpatient (CLI) | payer MEDICARE, MEDICAID, SELFPAY ==
--- NOTE | 2018-01-23 06:38 | MERGEMPI_ITS ---
*[facility]* *[facility]* [address] [place] [address] Myocardial Perfusion Imaging - SPECT Bernardino protocol Date of study: 01/23/2018 *PATIENT PRESENTATION* Height: 157.5cm (62in) Blood Pressure: Weight: 86.4kg (190lb) BSA: 1.98m^2 Referring physician: Eris Bhandari MD Ordering physician: Etelvina Villela Impressions: Normal perfusion by Tc99m Sestamibi Imaging. Summary: 1. Myocardial perfusion imaging: No myocardial perfusion defects noted. 2. The calculated left ventricular ejection fraction after stress: 64%. No left ventricular regional motion abnormality. Indication: R0.79. History: REASON FOR TESTING: RECENT ER VISIT FOR SHARP, STABBING, LEFT LATERAL CHEST PAIN AND FATIGUE. HAD BEEN TO THE ED X 2, WITH INCREASE IN SX. PT REPORTED THAT THE PAIN WAS RADIATING INTO HER NECK, LEFT SHOULDER AND BACK. NOT EXERTIONAL IN NATURE, AND RANDOMLY OCCURS. THE PAIN DOES NOT CHANGE WITH POSITION OR REST. [place] RULED OUT AT THAT TIME. PMH: LEFT KNEE ACL INJURY, FIBROMYALGIA, NEUROPATHY IN LEGS, DJD L3-L5, HYPOTHYROIDISM, GOITER WITH THYROIDECTOMY, HYSTERECTOMY, DIABETES 2, HYPERCHOLESTEROLEMIA. FAMILY HX: SISTER-HYPERTENSION SMOKING: QUIT 4 YEARS AGO. 35 YEARS X 02/17 PPD EXCERCISE: NO REGULAR EXCERCISE. Risk factors: Diabetes mellitus. Obesity. Dyslipidemia. Cholesterol: 240mg/dl. HDL: 47mg/dl. LDL: 142mg/dl. Triglycerides: 325mg/dl. ALLERGIES: PENNICILLINS, MUSHROOMS. ZONISAMIDE, SHELLFISH DERIVED, PREDNISONE, SIMVASTATIN, IBUPROFEN, SUFAMERAZINE. MEDICATIONS: ASPIRIN 81 MG DAILY, CALCIUM CITRATE VIT D3 2 TABS HS, CARBAMAZEPINE 200 MG BID, CINNAMON BARK 1 BID, CYCLOBENAZPRINE 5 MG TID PRN, DULOXETINE 60 MG DAILY, LEVOTHYROXINE 125 MCG DAILY, METFORMIN 500 MG BID, NAPROXEN UNK. DOSE, PRAVASTATIN 20 MG DAILY, VIT B COMPLEX 1 DAILY. Imaging Technique: Protocol: Bernardino protocol. Acquisition: Gated SPECT; 1 day - rest/stress. The patient was imaged in the supine position. Attenuation correction used. Isotope administration: - Rest. Tc[99m]-sestamibi. Dose: 10.1mCi. Injection time: 08:10 AM. Injection to stress time: 00:45. - Stress. Tc[99m]-sestamibi. Dose: 32.2mCi. Injection time: 09:50 AM. 1-2 min before end of exercise Baseline ECG: LAST EK01/16/18- SINUS RHYTHM, HR73. NON-SPECIFIC T ABNORMALITY. TODAY'S EKG- SINUS RHYTHM, HR 65. Stress protocol: + +---+ + + !Stage !HR !BP (mmHg) !Comments ! + +---+ + + !Baseline supine !65 !140/70 (93) ! ! + +---+ + + !Baseline standing !63 !142/72 (95) ! ! + +---+ + + !Stage I; 1.7mph, 10degrees; 3 min!115!148/74 (99) ! ! + +---+ + + !Baseline !93 !172/78 (109)! ! + +---+ + + !1 min !95 !174/76 (109)!Inject Regadenoson.! + +---+ + + !3 min !92 !150/70 (97) ! ! + +---+ + + !6 min !88 !126/68 (87) ! ! + +---+ + + * Stress results: The rate-pressure product for the peak heart rate and blood pressure was 19519xr Hg/min. Stress ECG: EXCERCISE TESTING ENDED IN 6 MINS, 0 SECS DUE TO CHEST PAIN AND FATIGUE. MAX HR WAS 128, 77% OF TARGET. HYPERTENSIVE. BLOOD PRESSURE RESPONSE. CHANGED TO LEXISCAN PROTOCOL AT 6 MINS OF EXCERCISE. METS: 4.66 ECTOPY: NONE NOTED. ANGINA: PT REPORTED 7/10 LEFT SIDED CHEST PAIN AT 5 MINS, 50 SECS OF TESTING, WITH ASSOCIATED SOB. ISCHEMIA: NO ISCHEMIC CHANGES NOTED, FUNCTIONAL CAPACITY: AVERAGE CAPACITY. LEXISCAN TESTING ENDED IN 6 MINS VS RETURNED TO BASELINE. MAX HR WAS 97, WITH A NORMAL BLOOD PRESSURE RESPONSE. ECTOPY: NONE NOTED. ANGINA: CHEST PAIN DECREASED FROM 7/10 IN EXCERCISE PORTION OF TESTING TO 2/10 IN 3 MINS OF LEXISCAN TESTING. PT REPORTED NO PAIN BY END OF TESTING AT 6 MINS. Myocardial perfusion: Imaging information: gated. No myocardial perfusion defects noted. Ventricular Function (Wall Motion): The calculated left ventricular ejection fraction after stress: 64%. No left ventricular regional motion abnormality. Study data: Eris Bhandari MD supervised and was readily available during the procedure. This study was interpreted by [facility]. Study status: Routine. Consent: The risks, benefits, and alternatives to the procedure were explained to the patient and informed consent was obtained. Procedure: Initial setup. A baseline ECG was recorded. Surface ECG leads and manual cuff blood pressure measurements were monitored. Heart sounds: Normal. Lung sounds: Normal. Treadmill exercise testing was performed using the Bernardino protocol. Study completion: All catheters inserted during the procedure were removed. The patient tolerated the procedure well and was discharged from the lab. Discharge: The patient left the laboratory in stable condition. Birthdate: Patient birthdate: 1960. Sex: Gender: female. Study date: Study date: 01/23/2018. Study time: 06:38 AM. Electronically signed by Eris Bhandari MD 01/23/2018 16:41
== END 2018-01-23 00:25 ==
PROVIDERS: PCP Nurse Practitioner Family; Visit Provider Nurse Practitioner Family
DX: R07.9 Chest pain, unspecified (principal); R53.83 Other fatigue; E03.9 Hypothyroidism, unspecified; E78.5 Hyperlipidemia, unspecified; E11.9 Type 2 diabetes mellitus without complications; Z79.84 Long term (current) use of oral hypoglycemic drugs; Z87.891 Personal history of nicotine dependence
CPT/HCPCS: 78452; 93016; 93018; 93017

== ENCOUNTER 2018-02-15 00:49 | Outpatient (CLI) | payer MEDICARE, MEDICAID, SELFPAY ==
--- NOTE | 2018-02-15 10:59 | DI.MAMMO_ITS ---
SYMPTOMS/DIAGNOSIS: SCREENING, Z12.31 MAMMOGRAMS: Mammograms were interpreted according to the usual protocol including computer analysis with CAD system, tomosynthesis and C view imaging. The breast tissue is of moderate radiodensity. There is no evidence of a dominant mass. There are no suspicious calcifications and there has been no significant interval change when compared with the prior images. SUMMARY: No evidence of malignancy, category 1. Yearly screening mammography is recommended. Breast density category B. SA ASSESSMENT OF FINDINGS: Negative. Category 1. Patient will receive a letter notifying them of these results. BI-RADS category B. There are scattered areas of fibroglandular density.
== END 2018-02-15 01:09 ==
PROVIDERS: PCP Nurse Practitioner Family; Visit Provider Nurse Practitioner Family
DX: Z12.31 Encounter for screening mammogram for malignant neoplasm of breast (principal)
CPT/HCPCS: 77063; 77067

== ENCOUNTER 2018-05-29 10:45 | Emergency (ER) | payer MEDICARE, MEDICAID, SELFPAY ==
[2018-05-29 10:48] VITALS: BP 140/58; PULSE 61; RESP 20; TEMP 36.6; O2SAT 99
--- NOTE | 2018-05-29 11:12 | DI.CT_ITS ---
SYMPTOM/DIAGNOSIS: S/P HEAD INJURY, HIT BACK OF HEAD ON GROUND CT BRAIN: Noncontrast examination. No priors. No intracranial hemorrhage, midline shift or mass effect is identified. The ventricles and sulci are consistent with the patient's age. There is mucosal thickening in the left maxillary sinus. The remaining visualized paranasal sinuses are clear. The mastoid air cells are well pneumatized. The calvarium is intact. IMPRESSION: No acute intracranial process. CT CERVICAL SPINE: Multiple contiguous axial images of the cervical spine were obtained. Sagittal and coronal reformatted images were evaluated on the [employer] work station. There is normal alignment of the cervical spine. No acute fractures or subluxations are seen. Mild degenerative changes are present throughout the cervical spine. There is no prevertebral soft tissue swelling. The lung apices are clear. IMPRESSION: No acute fracture or subluxation of the cervical spine. The findings were discussed with the Emergency Department on the date of the examination.
--- NOTE | 2018-05-29 11:15 | ED.GENADUL_ITS ---
Discharge Plan Disposition Patient Disposition: HOME Condition: Stable Discharge Details Chief Complaint: HeadInjury Clinical Impression: Closed head injury without loss of consciousness, Cervical strain Primary Care Provider: Etelvina Villela ED Provider: Ness Reeves Home Meds and New Rx's Prescriptions: Continued clotrimazole 1 % cream 1 applic TP BID 14 Days Qty: 28 RF: 2 metformin 500 mg tablet 500 - 1,000 mg PO BID Qty: 260 RF: 4 pravastatin 20 mg tablet 40 mg PO DAILY Qty: 180 RF: 4 duloxetine [Cymbalta] 60 mg capsule,delayed release(DR/EC) 60 mg PO DAILY Qty: 90 RF: 4 carbamazepine 200 mg tablet 200 mg PO BID Qty: 180 RF: 4 trazodone 50 mg tablet 50 mg PO DAILY Qty: 90 RF: 4 levothyroxine [Levo-T] 150 mcg tablet 150 mcg PO DAILY Qty: 90 RF: 0 calcium citrate-vitamin D3 1 EACH tablet 2 tab PO HS RF: 0 vitamin B complex 1 EACH capsule 1 cap PO DAILY RF: 0 cinnamon bark 500 MG capsule 1 cap PO BID RF: 0 Blood Glucose Test 1 EACH strip 1 ea Miscellaneous DAILY Qty: 100 RF: 4 naproxen 500 MG tablet 500 mg PO BID Qty: 60 RF: 4 aspirin [Aspirin Low-Strength] 81 MG tablet,chewable 81 mg PO DAILY RF: 0 Discharge Instructions Instructions: Cervical Strain (ED), Head Injury (ED) Additional Instructions: Alternate Tylenol and Motrin as needed and directed for pain. Alternate ice and heat to the affected area several times daily for 20 minutes at a time. Follow-up with your primary care doctor in 1 week for reevaluation as needed. Return immediately to the emergency department any worsening or concerning symptoms. Discharge Data Discharge Date/Time-TO BE ENTERED AT DEPARTURE: 05/29/18 12:30 Discharge Physician: Ness Reeves Medical Decision Making 57yo F with a history of PTSD, migraine, diabetes, fibromyalgia and osteoarthritis who presents for headache and neck pain after slip and fall hitting her head onto ice 2 days ago. No LOC or vomiting. Vitals within normal limits. Patient appears nontoxic and in no acute distress. No focal deficits. No evidence of head trauma. Neurovascularly intact. Symptoms most likely due to mild concussion/cervical strain. Will obtain a CT head and cervical spine to rule out acute intracranial or bony injury. Patient declines pain medication at this time. 1145 -- CT head and neck negative. Patient instructed to alternate ice and heat, Tylenol and Motrin, and that her symptoms may be present for a few days to a week or 2. She is instructed to follow-up with the primary care doctor for reevaluation and return here at any time if worse. Medical Records Medical records reviewed: Yes I reviewed the patient's medical records. Imaging Data Radiologic Study: Radiologist's impression: CT BRAIN: Noncontrast examination. No priors. No intracranial hemorrhage, midline shift or mass effect is identified. The ventricles and sulci are consistent with the patient's age. There is mucosal thickening in the left maxillary sinus. The remaining visualized paranasal sinuses are clear. The mastoid air cells are well pneumatized. The calvarium is intact. IMPRESSION: No acute intracranial process. CT CERVICAL SPINE: Multiple contiguous axial images of the cervical spine were obtained. Sagittal and coronal reformatted images were evaluated on the [employer] work station. There is normal alignment of the cervical spine. No acute fractures or subluxations are seen. Mild degenerative changes are present throughout the cervical spine. There is no prevertebral soft tissue swelling. The lung apices are clear. IMPRESSION: No acute fracture or subluxation of the cervical spine. HPI General Mode of arrival: ambulatory . Date/Time Provider Initiated Documentation: 05/29/18 10:56 . Limitations to Documentation: no limitations . Information obtained by: patient . HPI Narrative: Patient is a 57-year-old female who presents to the ED headache and neck pain after head injury 2 days ago. Patient states she was walking in her driveway when she slipped on ice and fell backward and hit the back of her head on the ice. She denies any LOC but she admits to some nausea initially but not since then. She admits to a headache 8/10 as well as neck pain 9/10. She states the headache feels like a ring around my head . She states her neck hurts more than her head and is across the whole neck and around to the front. She states the neck pain is worse with movement of her head. She also admits to occasional spinning sensation. She denies any vomiting, blurry vision, extremity weakness or numbness. She has taken naproxen for pain with some relief. Related Data Home Medications Medication Instructions Recorded Confirmed calcium citrate-vitamin D3 2 tab PO HS 07/06/12 05/29/18 vitamin B complex 1 cap PO DAILY 07/06/12 05/29/18 cinnamon bark 1 cap PO BID 07/07/12 05/29/18 aspirin [Aspirin Low-Strength] 81 mg PO DAILY 12/21/13 05/29/18 Blood Glucose Test #100 strip 10/08/14 05/29/18 naproxen 500 mg PO BID #60 mg 02/02/17 05/29/18 levothyroxine 150 mcg tablet 150 mcg PO DAILY #90 tab 01/18/18 05/29/18 carbamazepine 200 mg tablet 200 mg PO BID #180 tab-cap 01/27/18 05/29/18 duloxetine 60 mg capsule,delayed 60 mg PO DAILY #90 tab-cap 01/27/18 05/29/18 release metformin 500 mg tablet 500 - 1,000 mg PO BID #260 tab-cap 01/27/18 05/29/18 pravastatin 20 mg tablet 40 mg PO DAILY #180 tab-cap 01/27/18 05/29/18 trazodone 50 mg tablet 50 mg PO DAILY #90 tab 01/27/18 05/29/18 clotrimazole 1 % topical cream 1 applic TP BID 14 Days #28 gm 04/24/18 05/29/18 Previous Rx's Medication Instructions Recorded naproxen 500 mg PO BID #60 mg 02/02/17 levothyroxine 150 mcg tablet 150 mcg PO DAILY #90 tab 01/18/18 carbamazepine 200 mg tablet 200 mg PO BID #180 tab-cap 01/27/18 duloxetine 60 mg capsule,delayed 60 mg PO DAILY #90 tab-cap 01/27/18 release metformin 500 mg tablet 500 - 1,000 mg PO BID #260 tab-cap 01/27/18 pravastatin 20 mg tablet 40 mg PO DAILY #180 tab-cap 01/27/18 trazodone 50 mg tablet 50 mg PO DAILY #90 tab 01/27/18 clotrimazole 1 % topical cream 1 applic TP BID 14 Days #28 gm 04/24/18 Allergies Allergy/AdvReac Type Severity Reaction Status Date / Time Penicillins Allergy Severe Anaphylaxsi Verified 05/29/18 10:50 s mushroom Allergy Intermediate Hives Verified 05/29/18 10:50 zonisamide Allergy Intermediate Generalized Verified 05/29/18 10:50 rash shellfish derived Allergy Verified 05/29/18 10:50 prednisone AdvReac Intermediate lucid Verified 05/29/18 10:50 dreams simvastatin AdvReac Intermediate Myalgias Verified 05/29/18 10:50 ibuprofen AdvReac Rectal Verified 05/29/18 10:50 bleeding sulfamerazine AdvReac Myalgias Verified 05/29/18 10:50 General Stated Complaint: HeadInjury PAM: 3 Review of Systems Review of Systems All systems reviewed & are unremarkable except as noted in HPI and below Constitutional Reports as per HPI, Denies chills and Denies fever(s) Eyes Denies blurry vision ENT Denies dizziness, Denies sore throat and Denies throat swelling Cardiovascular Denies chest pain and Denies dyspnea Respiratory Denies cough and Denies dyspnea Gastrointestinal Denies abdominal pain, Denies diarrhea and Denies vomiting Genitourinary Denies hematuria and Denies dysuria Musculoskeletal Denies back pain and Denies numbness Integumentary/Breasts Denies lesions and Denies rash Neurologic Denies dizziness, Denies focal weakness and Denies numbness Allergic/Immunologic Denies throat swelling PFSH Medical History PTSD (post-traumatic stress disorder) (Chronic) Migraine headache (Chronic) Type 2 diabetes mellitus (Chronic) Hypothyroidism (Chronic 04/17/12) Hyperlipidemia (Chronic) Diabetic peripheral neuropathy (Chronic 12/10/15) Generalized anxiety disorder (Chronic) Major depressive disorder (Inactive) Tubular adenoma of colon (Chronic 02/06/16) Primary fibromyalgia syndrome (Chronic 04/17/12) Localized primary osteoarthritis (Chronic) Heart murmur (Inactive) Carpal tunnel syndrome (Resolved 01/30/13) Endometriosis (Resolved) Thyroid follicular adenoma (Resolved) Chest pain (Inactive) 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 Sister Essential hypertension Rheumatoid arthritis Sister No problems noted. Brother No problems noted. Son No problems noted. Daughter Bipolar disorder Substance abuse Hepatitis C Maternal Grandfather Essential hypertension Maternal Grandmother Substance abuse Tuberculosis Paternal Grandfather Rheumatoid arthritis Paternal Grandfather No problems noted. Father No problems noted. Social History household members: other details: 2 current occupational status: unemployed pets and animals: Yes pets and animals: cat(s) and fish frequency: 1-2 times per week duration: 15-30 minutes/day Smoking and Tabacco status: Current every day second hand exposure: No substance use type: does not use pierre/quaker: Druze special pierre needs: No Exam Const General: cooperative and healthy appearing Orientation: alert and awake HENMT Head: normal to inspection, no palpable skull fracture, normocephalic and atraumatic Ears: hearing grossly normal bilaterally, external ears normal and TM's normal bilaterally General nose exam: external nose normal Face and sinus: normal facial exam Mouth: oral mucosae normal Teeth and gingiva: dentition normal Throat: posterior oropharynx normal Eyes General: appearance normal, both eyes and all related structures Eyelids: eyelids normal Pupils: PERRL EOM: EOM intact bilaterally Neck Neck: normal visual inspection Lymphatic: no lymphadenopathy noted Chest Chest: normal inspection of the chest Resp Effort & Inspection: normal respiratory effort and able to speak in complete sentences Auscultation: clear to auscultation bilaterally Cardio Rate: regular rate Rhythm: regular rhythm Skin General skin exam: no rashes or lesions noted Neuro General: alert, awake, oriented x3, gait normal, moves all extremities, no meningeal signs and no focal motor deficits Cranial Nerves: CN's II-XI intact bilaterally Cognition: normal cognition Speech: speech normal Gait: normal gait Motor: muscle tone normal throughout and strength 5/5 throughout Sensory Exam: no sensory deficits noted DTR's: Rt Biceps: 1+, Lt Biceps: 1+, Rt Brachioradialis: 1+ and Lt Brachioradialis: 1+ Extrem General: normal to inspection, full ROM and normal capillary refill Right upper extremity: hand Details: vascular exam Details: radial pulse present and ulnar pulse present Left upper extremity: hand Details: vascular exam Details: radial pulse present and ulnar pulse present Psych Appearance: grossly normal Mental Status: mental status grossly normal Speech and Movement: speech and movement normal Affect: normal affect Thought Process: normal Course Vital Signs Temperature 97.9 F 05/29/18 10:48 Pulse 61 05/29/18 10:48 Respiratory Rate 20 05/29/18 10:48 Blood Pressure 140/58 L 05/29/18 10:48 Pulse Oximetry 99 05/29/18 10:48 Temperature 97.9 F 05/29/18 10:48 Temperature Source Temporal Artery Scan 05/29/18 10:48 Pulse 61 05/29/18 10:48 Respiratory Rate 20 05/29/18 10:48 Respiratory Effort Non-Labored 05/29/18 10:51 Respiratory Depth Normal 05/29/18 10:51 Blood Pressure 140/58 L 05/29/18 10:48 Blood Pressure Position Sitting 05/29/18 10:48 Pulse Oximetry 99 05/29/18 10:48 Oxygen Delivery Method Room Air 05/29/18 10:48 Oxygen Flow Rate 0 05/29/18 10:48 Pain Level 9 05/29/18 10:48
[2018-05-29 12:32] VITALS: BP 140/81; PULSE 70; RESP 16; TEMP 36.7; O2SAT 98
== END 2018-05-29 12:30 | disposition home or self-care (01) ==
LOC: ER 12:43
PROVIDERS: Emergency Provider Physician Assistant; PCP Nurse Practitioner Family
DX: S06.0X0A Concussion without loss of consciousness, initial encounter (principal); S16.1XXA Strain of muscle, fascia and tendon at neck level, initial encounter; E11.9 Type 2 diabetes mellitus without complications; Z79.84 Long term (current) use of oral hypoglycemic drugs; W00.0XXA Fall on same level due to ice and snow, initial encounter
CPT/HCPCS: 99284; 70450; 72125

== ENCOUNTER 2018-06-28 03:04 | Outpatient (CLI) | payer MEDICARE, MEDICAID, SELFPAY ==
[2018-06-28 11:13] LABS: Hemoglobin A1C 6.7 % (4.5-6.2)
[2018-06-28 11:18] LABS: BUN 13 mg/dL (7-18); CREATININE 0.81 mg/dL (0.55-1.02); Calcium 8.8 mg/dL (8.5-10.1); Chloride 101 mmol/L (98-107); Cholesterol 174 mg/dL (50-200); Glucose 112 mg/dL (70-100); HDL Cholesterol 54 mg/dL (40-60); LDL CHOLESTEROL 96 mg/dL (<100); Potassium 4.1 mmol/L (3.5-5.1); Sodium 141 mmol/L (136-145); Triglyceride 119 mg/dL (30-150)
[2018-06-28 11:49] LABS: FREE T4 0.88 ng/dL (0.76-1.46)
== END 2018-06-28 03:24 ==
PROVIDERS: PCP Nurse Practitioner Family; Visit Provider Nurse Practitioner Family
DX: E11.9 Type 2 diabetes mellitus without complications (principal); E03.9 Hypothyroidism, unspecified; E78.5 Hyperlipidemia, unspecified
CPT/HCPCS: 36415; 80048; 80061; 83721; 83036; 84439; 84443

== ENCOUNTER 2018-07-18 01:48 | Outpatient (CLI) | payer MEDICARE, MEDICAID, SELFPAY ==
--- NOTE | 2018-07-18 14:11 | DI.RAD_ITS ---
SYMPTOMS/DIAGNOSIS: HYSTERECTOMY IN EARLY 30S, SCREENING FOR OSTEOPOROSIS IN POSTMENOPAUSAL WOMAN, Z78.0 DEXA SCAN: The scanogram is unremarkable. For the left forearm, a T score of 0.5 and a Z score of 1.4 are within the normal range. For the left hip, a T score of -0.3 and a Z score of 0.4 indicate osteopenia and an increased fracture risk. For the lumbar spine, a T score of -1.1 and a Z score of 0.0 are consistent with osteopenia and an increased fracture risk.
== END 2018-07-18 02:08 ==
PROVIDERS: PCP Nurse Practitioner Family; Visit Provider Nurse Practitioner Family
DX: M85.88 Other specified disorders of bone density and structure, other site (principal); Z78.0 Asymptomatic menopausal state
CPT/HCPCS: 77080

== ENCOUNTER 2018-11-09 10:33 | Outpatient (CLI) | payer MEDICARE, MEDICAID, SELFPAY ==
[2018-11-09 13:21] LABS: FREE T4 0.89 ng/dL (0.76-1.46); TSH 0.05 uIU/mL (0.36-3.74)
== END 2018-11-09 10:53 ==
PROVIDERS: PCP Nurse Practitioner Family; Visit Provider Nurse Practitioner Family
DX: E03.9 Hypothyroidism, unspecified (principal); E11.9 Type 2 diabetes mellitus without complications
CPT/HCPCS: 36415; 83036; 84439; 84443

== ENCOUNTER 2019-02-01 09:44 | Outpatient (CLI) | payer MEDICARE, MEDICAID, SELFPAY ==
[2019-02-01 13:30] LABS: Vitamin D 25 Total 22.3 ng/ml (30-100)
[2019-02-01 13:36] LABS: Hemoglobin A1C 6.6 % (4.5-6.2)
[2019-02-01 13:39] LABS: Anion Gap 8.2 mmol/L (3-11); BUN 13 mg/dL (7-18); CO2 30.8 mmol/L (21.0-32.0); CREATININE 0.83 mg/dL (0.55-1.02); Chloride 102 mmol/L (98-107); FREE T4 1.23 ng/dL (0.76-1.46); Glucose 115 mg/dL (70-100); Potassium 4.8 mmol/L (3.5-5.1); Sodium 141 mmol/L (136-145); TSH 0.03 uIU/mL (0.36-3.74)
== END 2019-02-01 10:04 ==
PROVIDERS: PCP Nurse Practitioner Family; Visit Provider Nurse Practitioner Family
DX: E03.9 Hypothyroidism, unspecified (principal); E11.9 Type 2 diabetes mellitus without complications; M85.80 Other specified disorders of bone density and structure, unspecified site
CPT/HCPCS: 36415; 80048; 82306; 83036; 84439; 84443

== ENCOUNTER 2019-02-21 01:58 | Outpatient (CLI) | payer MEDICARE, MEDICAID, SELFPAY ==
--- NOTE | 2019-02-21 11:15 | DI.MAMMO_ITS ---
EXAM: MAMMO SCREENING CLINICAL HISTORY: screening Z12.39 TECHNIQUE: Mammograms were interpreted according to the usual protocol including computer analysis w [employer] CAD system, tomosynthesis and C-view imaging. COMPARISON: Current examination is compared with previous examinations including January 2018. FINDINGS: The breasts are heterogeneously dense. No dominant mass or clumped microcalcification identified in either breast. Current examination is compared with previous examinations including January 2018 and there has been no gross interval change in appearance in comparison with the previous studies. IMPRESSION: No specific evidence of malignancy at this time. Routine screening examinations are suggested yearly intervals in this age group according the ACS/ACR guidelines. Category 1, breast density category C. BI-RADS Cat 1 - Negative Breast Density - Category C - Heterogeneously dense Patient will receive a letter notifying them of these results.
== END 2019-02-21 02:18 ==
PROVIDERS: PCP Nurse Practitioner Family; Visit Provider Nurse Practitioner Family
DX: Z12.31 Encounter for screening mammogram for malignant neoplasm of breast (principal)
CPT/HCPCS: 77063; 77067

== ENCOUNTER 2019-05-08 12:56 | Outpatient (REF) | payer MEDICARE, MEDICAID, SELFPAY | END 2019-05-08 13:16 | LOC: LBN 12:56 | PROVIDERS: PCP Nurse Practitioner Family; Visit Provider Family Medicine | DX: J02.9 Acute pharyngitis, unspecified (principal) | CPT/HCPCS: 87070 ==

== ENCOUNTER 2019-12-10 21:59 | Outpatient (REF) | payer MEDICARE, MEDICAID, SELFPAY ==
[2019-12-10 21:28] LABS: Hemoglobin A1C 7.4 % (3.8-5.6)
[2019-12-10 21:42] LABS: Calculated LDL 147 mg/dL (<100); Cholesterol 255 mg/dL (<200); HDL Cholesterol 47 mg/dL (40-60); TSH 16.37 uIU/mL (0.36-3.74); Triglyceride 309 mg/dL (<150)
[2019-12-10 21:58] LABS: FREE T4 0.77 ng/dL (0.76-1.46)
== END 2019-12-10 22:19 ==
LOC: LBN 21:59
PROVIDERS: PCP Nurse Practitioner Family; Visit Provider Nurse Practitioner Family
DX: E11.42 Type 2 diabetes mellitus with diabetic polyneuropathy (principal); E03.9 Hypothyroidism, unspecified
CPT/HCPCS: 80061; 83036; 84439; 84443

== ENCOUNTER 2020-02-07 14:59 | Outpatient (REF) | payer MEDICARE, MEDICAID, SELFPAY ==
[2020-02-07 20:48] LABS: Hemoglobin A1C 7.4 % (<5.7)
[2020-02-07 20:57] LABS: Vitamin D 25 Total 46.2 ng/ml (30-100)
[2020-02-07 21:02] LABS: Anion Gap 8.9 mmol/L (3-11); BUN 13 mg/dL (7-18); CO2 29.1 mmol/L (21.0-32.0); CREATININE 0.91 mg/dL (0.55-1.02); Calcium 8.7 mg/dL (8.5-10.1); Calculated LDL 113 mg/dL (<100); Chloride 102 mmol/L (98-107); Cholesterol 207 mg/dL (<200); Glucose 154 mg/dL (74-106); HDL Cholesterol 53 mg/dL (40-60); Potassium 4.1 mmol/L (3.5-5.1); Sodium 140 mmol/L (136-145); Triglyceride 209 mg/dL (<150)
[2020-02-07 21:28] LABS: FREE T4 1.24 ng/dL (0.76-1.46)
== END 2020-02-07 15:19 ==
LOC: LBN 14:59
PROVIDERS: PCP Nurse Practitioner Family; Visit Provider Nurse Practitioner Family
DX: E03.9 Hypothyroidism, unspecified (principal); E11.9 Type 2 diabetes mellitus without complications; E55.9 Vitamin D deficiency, unspecified
CPT/HCPCS: 80048; 80061; 82306; 83036; 84439; 84443

== ENCOUNTER 2020-03-05 00:44 | Outpatient (CLI) | payer MEDICARE, MEDICAID, SELFPAY ==
--- NOTE | 2020-03-05 15:54 | DI.MAMMO_ITS ---
EXAM: MG MAMMO SCREENING CLINICAL HISTORY: screening,Z12.39 TECHNIQUE: Bilateral full field digital CC and MLO mammographic images were obtained with 3D tomosyn thesis and utilizing computer aided detection (CAD). COMPARISON: Available for comparison. FINDINGS: Masses/Architectural Distortion: None seen. Microcalcifications: No suspicious pleomorphic-type are seen. Skin Thickening/Nipple Retraction: None. IMPRESSION: 1. No significant interval change with no specific features of malignancy noted. 2. Unless there is more urgent need, screening mammography is recommended, as per [employer] [place] [employer] guidelines. BI-RADS Category 1 - Negative Breast Density - Category B - Scattered areas of fibroglandular density A negative radiographic report should not delay biopsy if a dominant or clinically suspicious mass is present. Up to ten percent of cancers are not identified on mammography. A negative report may reinforce clinical impression. Adenosis and dense breasts may obscure an underlying neoplasm. False positive reports average 6 to 10%. Patient will receive a letter notifying them of these results.
== END 2020-03-05 01:04 ==
PROVIDERS: PCP Nurse Practitioner Family; Visit Provider Nurse Practitioner Family
DX: Z12.31 Encounter for screening mammogram for malignant neoplasm of breast (principal)
CPT/HCPCS: 77063; 77067

== ENCOUNTER 2020-05-19 16:17 | Outpatient (REF) | payer OTHER, MEDICAID, SELFPAY ==
[2020-05-19 21:54] LABS: Hemoglobin A1C 7.4 % (<5.7)
[2020-05-19 21:55] LABS: Calculated LDL 89 mg/dL (<100); Cholesterol 184 mg/dL (<200); HDL Cholesterol 52 mg/dL (40-60); Triglyceride 218 mg/dL (<150)
== END 2020-05-19 16:37 ==
LOC: LBN 16:17
PROVIDERS: PCP Nurse Practitioner Family; Visit Provider Nurse Practitioner Family
DX: E11.9 Type 2 diabetes mellitus without complications (principal); E78.5 Hyperlipidemia, unspecified
CPT/HCPCS: 80061; 83036

== ENCOUNTER 2021-02-10 21:45 | Outpatient (REF) | payer MEDICARE, MEDICAID, SELFPAY ==
[2021-02-10 21:42] LABS: Anion Gap 8.6 mmol/L (3-11); BUN 10 mg/dL (7-18); CO2 31.4 mmol/L (21.0-32.0); CREATININE 0.9 mg/dL (0.55-1.02); Calcium 9.1 mg/dL (8.5-10.1); Chloride 102 mmol/L (98-107); FREE T4 1.11 ng/dL (0.76-1.46); Glucose 158 mg/dL (74-106); Potassium 4.1 mmol/L (3.5-5.1); Sodium 142 mmol/L (136-145); TSH 0.03 uIU/mL (0.36-3.74)
== END 2021-02-10 21:46 | disposition home or self-care (01) ==
LOC: LBN 21:45
PROVIDERS: PCP Nurse Practitioner Family; Visit Provider Nurse Practitioner Family
DX: E03.9 Hypothyroidism, unspecified (principal); E11.9 Type 2 diabetes mellitus without complications
CPT/HCPCS: 80048; 83036; 84439; 84443

== ENCOUNTER 2021-03-06 01:52 | Outpatient (CLI) | payer MEDICARE, MEDICAID, SELFPAY ==
--- NOTE | 2021-03-06 12:25 | DI.MAMMO_ITS ---
Exam(s) MAMMO SCREENING EXAM: MAMMO SCREENING CLINICAL HISTORY: screening, Z12.39 TECHNIQUE: Mammograms were interpreted according to the usual protocol including computer analysis w [employer] CAD system, tomosynthesis and C-view imaging. COMPARISON: 2011 through 2019 FINDINGS: The breasts are composed of scattered fibroglandular densities, Breast Density category B. No suspicious masses or suspicious microcalcifications are seen. No skin thickening or abnormal axillary lymph nodes are seen. There has been no significant change from prior exams. IMPRESSION: BI-RADS Category 1, Negative mammogram Yearly screening mammography is recommended. Breast Density - Category B, scattered fibroglandular densities. A negative radiographic report should not delay biopsy if a dominant or clinically suspicious mass is present. Up to ten percent of cancers are not identified on mammography. A negative report may reinforce clinical impression. Adenosis and dense breasts may obscure an underlying neoplasm. False positive reports average 6 to 10%. Patient will receive a letter notifying them of these results.
== END 2021-03-06 02:12 ==
PROVIDERS: PCP Nurse Practitioner Family; Visit Provider Nurse Practitioner Family
DX: Z12.31 Encounter for screening mammogram for malignant neoplasm of breast (principal)
CPT/HCPCS: 77063; 77067

== ENCOUNTER → 2021-10-29 15:24 | Outpatient (BNVA) | payer MEDICARE, MEDICAID, SELFPAY | PROVIDERS: PCP Nurse Practitioner Family; Referring Provider Nurse Practitioner Family; Visit Provider Physical Therapy Assistant | DX: Z86.010 Personal history of colon polyps (principal); Z12.11 Encounter for screening for malignant neoplasm of colon; R07.9 Chest pain, unspecified ==

== ENCOUNTER 2021-11-12 15:56 | Outpatient (CLI) | payer MEDICARE, MEDICAID, SELFPAY ==
--- NOTE | 2021-11-12 15:45 | RT.EKG_ITS ---
APPROVED REPORT Exam: Resting ECG Reason for Exam: Chest discomfort Patient Location: O HR:78 bpm ECG Measurements Heart Rate [address] 149 P 42 QRSd 94 QRS 29 QT 385 T 98 QTc 439 Conclusion Sinus rhythm...normal P axis, V-rate 60- 99 Probable left atrial enlargement...P >50mS, <-0.10mV V1 Nondiagnostic ST-T abnormalities
== END 2021-11-12 15:57 | disposition home or self-care (01) ==
LOC: DI.CM 15:57
PROVIDERS: PCP Nurse Practitioner Family; Visit Provider Nurse Practitioner Family
DX: R07.89 Other chest pain (principal); R94.31 Abnormal electrocardiogram [ECG] [EKG]
CPT/HCPCS: 93010

== ENCOUNTER 2021-11-12 17:04 | Emergency (ER) | payer MEDICARE, MEDICAID, SELFPAY ==
[2021-11-12] VITALS (31 sets, daily range): BP systolic 112–147; BP diastolic 56–71; PULSE 63–84; RESP 11–22; TEMP 36.4; O2SAT 92–97
--- NOTE | 2021-11-12 17:00 | RT.EKG_ITS ---
APPROVED REPORT Exam: Resting ECG Reason for Exam: CHEST PAIN Patient Location: E HR:69 bpm ECG Measurements Heart Rate 69 AXIS ND 148 P 36 QRSd 99 QRS 23 QT 395 T 87 QTc 424 Conclusion Sinus rhythm...normal P axis, V-rate 60- 99 Nonspecific T abnrm, anterolateral leads.
--- NOTE | 2021-11-12 17:15 | DI.RAD_ITS ---
Exam(s) XR CHEST 2V PA LATERAL EXAM: XR CHEST 2V PA LATERAL CLINICAL HISTORY: pain TECHNIQUE: 2D digital imaging was performed of the chest. Two images were obtained. PA and lateral views were obtained. COMPARISON: CR XR CHEST 2V PA LATERAL from 01/13/2018 FINDINGS: MEDIASTINUM: Normal. HEART: Normal. PULMONARY VASCULATURE: Normal. LUNGS: Clear. PLEURAL SPACE: No pleural effusion or pneumothorax. BONE:Within normal limits for the patient's age. OTHER FINDINGS:Normal. IMPRESSION: No acute pulmonary findings. DATA REPOSITORY: RADIATION DOSE DELIVERED:
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
[2021-11-12] MEDS: Aspirin 81 MG CHEW 324 MG CH (17:25)
[2021-11-12 17:43] LABS: Abs Immature Grans 0.05 10^3/uL (0.0-0.06); Absolute Basophil Count 0.07 10^3/uL (0.0-0.2); Absolute Eosinophil Count 0.41 10^3/uL (0.0-0.7); Absolute Lymphocyte Count 2.31 10^3/uL (1.2-3.4); Absolute Monocyte Count 0.54 10^3/uL (0.1-0.8); Absolute Neutrophil Count 4.14 10^3/uL (1.2-6.7); Basophils % 0.9; Eosinophils % 5.5; HCT 39.7 % (36.0-46.0); HGB 13.3 g/dL (11.2-15.7); Immature Grans % 0.7; Lymphocytes % 30.7; MCH 30.2 pg (27.0-33.0); MCHC 33.5 % (32.0-36.0); MCV 90 fL (80-95); Monocytes % 7.2; Platelet Count 242 10^3/uL (130-400); RDW-SD 42.6 fL; WBC 7.52 10^3/uL (4.4-10.8)
--- NOTE | 2021-11-12 17:53 | NUR.NOTE ---
Nursing Note:Pt to DI and return via stretcher for ordered exam, no change in complaints, cont. to monitor.
[2021-11-12 18:01] LABS: ALT 52 U/L (14-59); AST 32 U/L (15-37); Albumin 3.8 g/dL (3.4-5.0); Alkaline Phosphatase 114 U/L (46-116); Anion Gap 8.1 mmol/L (3-11); BUN 18 mg/dL (7-18); Bilirubin, Total 0.2 mg/dL (0.2-1.0); CO2 28.9 mmol/L (21.0-32.0); CREATININE 0.8 mg/dL (0.55-1.02); Calcium 9.1 mg/dL (8.5-10.1); Chloride 101 mmol/L (98-107); Glucose 127 mg/dL (74-106); Sodium 138 mmol/L (136-145); Total Protein 7.9 g/dL (6.4-8.2)
--- NOTE | 2021-11-12 18:02 | DI.VRAD_ITS ---
PROCEDURE INFORMATION: Exam: XR Chest Exam date and time: 11/12/2021 5:49 PM Age: 61 years old Clinical indication: Pain; Other: Generalized TECHNIQUE: Imaging protocol: Radiologic exam of the chest. Views: 2 views. COMPARISON: CR XR CHEST 2V PA LATERAL 01/13/2018 2:32 PM FINDINGS: Lungs: No consolidation. Pleural spaces: No pleural effusion. No pneumothorax. Heart/Mediastinum: No cardiomegaly. Bones/joints: Unremarkable. IMPRESSION: No acute findings. Dictated and Authenticated by: Adela Ascencio MD. Ordering:MISAEL Villeda MD
[2021-11-12 18:08] LABS: TSH (W/Ref FT4) 0.37 uIU/mL (0.36-3.74); Troponin I < 50 ng/L (<or=60)
[2021-11-12 18:09] LABS: PTT Activated 24.4 sec (21.0-27.5); Prothrombin Time 9.9 sec (9.3-11.0)
[2021-11-12 18:24] LABS: D-Dimer 459 ng/mlFEU (<500)
[2021-11-12] MEDS: Ketorolac 15 MG/ML VIAL IVP (19:02)
[2021-11-12 20:27] LABS: Troponin I < 50 ng/L (<or=60)
== END 2021-11-12 21:01 | disposition home or self-care (01) ==
PROVIDERS: Emergency Provider Physician Assistant; PCP Nurse Practitioner Family
DX: R07.9 Chest pain, unspecified (principal); E11.42 Type 2 diabetes mellitus with diabetic polyneuropathy; Z87.891 Personal history of nicotine dependence; Z79.84 Long term (current) use of oral hypoglycemic drugs
CPT/HCPCS: 36415; 80053; 93005; 96374; 99284; 71046; 83735; 84443; 84484; 85025; 85379; 85610; 85730; 93010; 99285; J1885

== ENCOUNTER → 2021-11-19 01:40 | Outpatient (CLI) | payer MEDICARE, MEDICAID, SELFPAY ==
--- NOTE | 2021-11-19 09:00 | ETT_ITS ---
APPROVED REPORT Exam: Exercise Treadmill Patient Location: Out-Patient Room/Bed: Stress Nurse: Adriana Monreal RN Ordering Provider:BARB FERRARA, Contact Number: [phone] BMI: 33.83 Baseline Rhythm: Sinus Rhythm Indications: Chest pain. Chest discomfort. Medical History Medical History: DM II. Peripheral neuropathy. HLD. Hypothyroidism. PTSD. Depression. Primary fibromy algia syndrome. Cardiac Medications: Aspirin. Pravastatin. Metformin. Jardiance. Allergies: PCN. Mushroom. Zonisamide. Shellfish. Prednisone. Ibuprofen. Simvastatin. Sulfamerazine. Cardiac Risk Factors: Diabetes. Former smoker. HLD. Obesity. Previous Cardiac Procedures: None Pretest Chest Pain Characteristics: Non-exertional Chest pain Exercise History: Indeterminate Physical Disabilities: None Lung Sounds: Clear to auscultation. Heart Sounds: Regular Stress Test Details Test: Exercise stress testing was performed using a Bernardino protocol. Rest Stress HR Resting HR Supine: 71 bpm Max Heart Rate (APMHR): 161 bpm Resting HR Standin bpm Target HR (85% APMHR): 136 bpm Max HR Achieved: 140 bpm % of APMHR: 86 Recovery HR: 91 bpm HR response to stress: Normal HR response to stress BP Resting BP Supine: 148/70 mmHg Resting BP Standin/68 mmHg Max BP: 180/68 mmHg Recovery BP: 146/70 mmHg BP response to stress: Normal blood pressure response to stress. ECG Resting ECG: Sinus Rhythm Ectopy: None Stress ECG: Sinus Tachycardia ST Change: No significant ST segment changes noted Arrhythmia: None Recovery ECG: Sinus Rhythm Recovery ST Change: No significant ST segment changes noted Recovery Arrhythmia: None Clinical Reason for Termination: Dyspnea, Fatigue Stress Symptoms: Dyspnea, Leg Fatigue Exercise duration: 6 min26 sec Highest Stage Reached: Stage 3: 3.4 mph at 14% grade. Exercise capacity: 7.72 METs Scale: Sedentary Angina Score: Non-Limiting Rate Pressure Product: 19000 Stress ECG Conclusion 1. Electrocardiogram showed minor ST abnormalities 2. Patient exercised on the Bernardino protocol and completed a workload of 7.72 METS, stopping due to fat igue 3. Normal heart rate and blood pressure response to exercise. Patient achieved 86% of predicted hear t rate for age 4. There was no electrocardiographic evidence of myocardial ischemia 5. There were no dysrhythmias Stress Test Summary STAGE Time (mins) Speed (mph) Grade (%) HR BP SpO2 SYMPTOMS METS Supine 71 148/70 5/10 left lateral chest pain. Standing 74 130/68 1 3 1.7 10 124 160/78 Chest pain symptoms subsided. 4.5 2 6 2.5 12 135 178/70 7 3 9 3.4 14 SOB. Leg fatigue. 10 1 min recovery 119 180/68 3 min recovery 92 162/70 6 min recovery 91 146/70 2/10 chest pain.
== END ==
PROVIDERS: PCP Nurse Practitioner Family; Visit Provider Nurse Practitioner Family
DX: R07.89 Other chest pain (principal)
CPT/HCPCS: 93016; 93018; 93017

== ENCOUNTER → 2022-02-22 11:27 | Outpatient (BNVA) | payer MEDICARE, MEDICAID, SELFPAY | PROVIDERS: PCP Nurse Practitioner Family; Referring Provider Nurse Practitioner Family; Visit Provider Surgery | DX: Z12.11 Encounter for screening for malignant neoplasm of colon (principal); D12.6 Benign neoplasm of colon, unspecified | CPT/HCPCS: 99212 ==

== ENCOUNTER → 2022-02-24 01:48 | Outpatient (CLI) | payer MEDICARE, MEDICAID, SELFPAY ==
--- NOTE | 2022-02-24 07:45 | DI.CTLCSR_ITS ---
Exam(s) CT CHEST LUNG CANCER SCREEN EXAM: CT CHEST LUNG CANCER SCREEN CLINICAL HISTORY: Screening for lung cancer,former smoker, z87.891 TECHNIQUE: Imaging Protocol: Axial computed tomography images with coronal and sagittal reformatted images were created and reviewed FINDINGS: Tracheobronchial tree: Patent where visualized. Pulmonary parenchyma: No consolidation or dominant measurable mass. No architectural distortion. Ther e are calcified granuloma present. Lung Nodules: None. Mediastinum and Jojo: No dominant adenopathy or fluid collection. The esophagus is unremarkable. Thyroid gland: Visualized thyroid gland is unremarkable. Lymph nodes: Unremarkable. Pleura: No effusion or pneumothorax. Heart: The heart is not dilated. Mild coronary artery calcification is present. No pericardial effus ion. Aorta: Thoracic aorta non-dilated.Atherosclerosis is present. Upper abdomen: Unremarkable. Soft Tissues: Unremarkable. Bones: Within normal limits. IMPRESSION: No pulmonary nodules. Lung RADS Cat 1 - Negative: No nodules and definitely benign nodules Lung-RADS 1.0 CATEGORIES: Category 0 - Prior chest CT exam(s) being located for comparison. Category 1 - Annual screening in 12 months. No nodules or definitely benign nodules. Category 2 - Annual screening in 12 months. Benign appearance. Nodules with low likelihood of becomin g active cancer. Category 3 - 6-month follow-up. Probably benign. Short-term follow-up suggested. Nodules with low lik elihood of becoming active cancer. Category 4A - 3-month follow-up and CT/PET if >8 mm in size. Suspicious finding. Findings which requi re additional testing. Category 4B - Findings which require additional testing and tissue sampling. Suspicious finding. Category 4X - Category 3 or 4 nodules with additional features or imaging findings that increases the suspicion of malignancy. Modifier S- Potentially clinically significant finding. (Non lung cancer) RADIATION DOSE DELIVERED: 61.6mGy.cm Total DLP 1.84mGy!Error CTDIvol 61.6mGy.cm Total DLP 1.84mGy!Error CTDIvol DATA REPOSITORY: All CT scans at this facility are submitted to the National Radiology Data Registry (NRDR) Dose Index Registry (DIR) with the [employer] (A[employer]). RADIATION OPTIMIZATION: All CT scans at this facility use at least one of these dose optimization te chniques: automated exposure control; mA and/or kV adjustment per patient size (includes targeted exa ms where dose is matched to clinical indication); or iterative reconstruction.
== END ==
PROVIDERS: PCP Nurse Practitioner Family; Visit Provider Nurse Practitioner Family
DX: Z12.2 Encounter for screening for malignant neoplasm of respiratory organs (principal); Z87.891 Personal history of nicotine dependence
CPT/HCPCS: 71271

== ENCOUNTER 2022-03-02 08:03 | Day surgery (SDC) | payer MEDICARE, MEDICAID, SELFPAY ==
--- NOTE | 2022-03-01 19:48 | W.PM.DSUDISC ---
Date of service: 03/02/22 Time of Service: 10:28 Discharge Plan Disposition Patient Disposition: HOME Condition: Good Discharge Details Reason For Visit: Routine health maintenance screening colonoscopy Attending Provider: Jeff Ellison Primary Care Provider: Etelvina Villela Home Meds and New Rx's Prescriptions: Continued (DME) blood-glucose meter [OneTouch Ultra2 Meter] Misc See Rx Instructions .ROUTE .MEDSUPPLY Qty: 1 4RF Label Comments: pt. reports she took last time yesterday, usual range is 120-140 Rx Instructions: Check blood sugar twice a day vitamin B complex 1 EACH capsule 1 cap PO DAILY cinnamon bark 500 MG capsule 1 cap PO BID cholecalciferol (vitamin D3) 2,000 unit capsule 2,000 unit PO DAILY Qty: 90 4RF Rx Instructions: Take 1 capsule once a day (DME) blood sugar diagnostic Strip 1 ea Miscellaneous DAILY Qty: 200 4RF Rx Instructions: Check blood sugar twice a day Jardiance 25 mg tablet 25 mg PO DAILY Qty: 90 4RF metformin 500 mg tablet 1,000 mg PO BID Qty: 360 4RF Rx Instructions: Take 2 tablets twice a day pravastatin 40 mg tablet 40 mg PO DAILY Qty: 90 4RF Rx Instructions: Take 1 tablet daily trazodone 50 mg tablet 50 mg PO DAILY PRN (Reason: insomnia) Qty: 90 4RF carbamazepine 200 mg tablet 200 mg PO BID Qty: 180 0RF duloxetine [Cymbalta] 60 mg capsule,delayed release(DR/EC) 60 mg PO DAILY Qty: 90 4RF levothyroxine 137 mcg tablet 137 mcg PO DAILY Qty: 90 2RF aspirin [Aspirin Low-Strength] 81 MG tablet,chewable 81 mg PO DAILY Discontinued polyethylene glycol 3350 17 gram/dose powder 238 g PO ONCE Qty: 238 0RF Rx Instructions: take per colonoscopy instructions bisacodyl [Dulcolax (bisacodyl)] 5 mg tablet,delayed release (DR/EC) 5 mg PO ONCE Qty: 4 0RF Rx Instructions: take per colonoscopy instructions Discharge Instructions Instructions: Colorectal Polyps (DC) Additional Instructions: 1. If tolerated, consume a soft, low fiber diet for 1-2 days. 2[address] Do not drive, drink alcohol, operate machinery, make critical decisions, or do activities that require coordination or balance for 24 hours. 3. Because air was put into your colon during the procedure, expelling air from your rectum (passing gas or farting) is normal. 4. You may not have a bowel movement for 1-3 days because of the colonoscopy prep. This is normal. 5. Go directly to the emergency room if you notice any of the following: Develop chills (warm to touch), or if you have a thermometer and your temperature is above 101 Difficulty breathing or difficultly swallowing Persistent vomiting Severe abdominal pain, other than gas cramps Severe chest pain Black, tarry stools Any bleeding ? exceeding one tablespoon 6. Call your physician if the site where your intravenous was started becomes red, swollen, painful, and warm to touch. 7. Your physician has reviewed your pre-procedure medications. Please continue to take those medications as previously ordered. You will be given specific information/education regarding any changes to your medications before leaving. Activity:: Activity as Tolerated Diet:: As Tolerated Discharge Orders Discharge Orders: Discharge Order (Routine); Ordered 03/01/22 Ordered By: Jeff Ellison DS: Diagnosis Discharge Diagnosis (1) Cecal polyp: Status: Acute Asessment and Plan: I will contact you with results of the biopsies once they are available.
--- NOTE | 2022-03-01 19:50 | W.COLOREPORT ---
Date of service: 03/02/22 Time of Service: 10:25 Colonoscopy Report Date of procedure: 03/02/22 Pre-op diagnosis general: Routine health maintenance screening colonoscopy Post-op diagnosis procedure note: other (Cecal polyp, mild diverticulosis) Procedure: Colon Surgeon: Jeff Ellison Anesthesia Type: General:No Airway Estimated blood loss (mL): 10 Pathology: other (Cecal polyp) Complications: None Disposition: same day Indications: Jay is a 61-year-old woman here for a routine health maintenance screening colonoscopy. Prep: Miralax/Dulcolax Procedure Start Time: 09:50 Procedure End Time: 10:11 Retraction Time: 14 Procedure Description: After the induction of monitored anesthetic care, and with the patient in left lateral decubitus position, I began by performing an external anorectal exam.? Perineum and skin were normal, as was the anal verge.? There was no evidence of external hemorrhoids.? Next, I performed a digital rectal exam.? I did not appreciate any abnormal findings.? Next, I advanced a colonoscope into the rectal vault.? I performed retroflexion.? I did not see signs of pathologic internal hemorrhoids.? Using insufflation, I then advanced the colonoscope beyond the rectal folds and into the sigmoid colon before advancing towards the cecum.? The quality of the prep was excellent.? The scope was noted to be in the cecum by identification of the ileocecal valve and appendiceal orifice.? Several centimeters distal to the appendix, I noticed a 0.5 cm sessile polyp. I performed a polypectomy with cold forceps. There was minimal bleeding. I then began withdrawing the colonoscope using repeated irrigation as necessary for full evaluation of the colonic mucosa. There was mild sigmoid diverticulosis. once the scope was withdrawn to the level of the rectum, great care was taken to examine portions of the rectal folds.? Finally, the scope was withdrawn and the patient was brought to the same-day surgery recovery unit as the anesthetic wore off. ?The findings and instructions were shared with the patient prior to discharge.
[2022-03-02 08:35] VITALS: BP 134/80; PULSE 78; RESP 20; TEMP 36.4; O2SAT 98
[2022-03-02] MEDS: Lactated Ringers 1,000 ML 80 ML IV (08:50)
--- NOTE | 2022-03-02 09:31 | W.ANESPRE ---
General Info Date of Service Date Performed: 03/02/22 Height: 5 ft 2 in Weight: 80.7 kg Body Mass Index (BMI): 32.5 Surgical Procedure: Operation Date: 03/02/22 09:05 Proposed Procedure Side Surgeon katlin Ellison MD Meds Allergies and Home Medications Allergies Allergy/AdvReac Type Severity Reaction Status Date / Time Penicillins Allergy Severe Anaphylaxsi Verified 02/22/22 11:34 s shellfish derived Allergy Severe Anaphylaxis Verified 02/26/22 14:46 mushroom Allergy Intermediate Hives Verified 02/22/22 11:34 zonisamide Allergy Intermediate Generalized Verified 02/22/22 11:34 rash ibuprofen AdvReac Intermediate Rectal Verified 02/26/22 14:46 bleeding prednisone AdvReac Intermediate lucid Verified 02/22/22 11:34 dreams simvastatin AdvReac Intermediate Myalgias Verified 02/22/22 11:34 sulfamerazine AdvReac Intermediate Myalgias Verified 02/26/22 14:46 Home Medication Medication Instructions Recorded vitamin B complex 1 cap PO DAILY 07/06/12 cinnamon bark 500 mg capsule 1 cap PO BID 07/07/12 aspirin 81 mg chewable tablet 81 mg PO DAILY 12/21/13 (Aspirin Low-Strength) cholecalciferol (vitamin D3) 50 2,000 unit PO DAILY #90 caps 02/02/19 mcg (2,000 unit) capsule blood-glucose meter (OneTouch #1 ea 02/09/21 Ultra2 Meter) blood sugar diagnostic #200 ea 06/24/21 empagliflozin 25 mg tablet 25 mg PO DAILY #90 tabs 06/24/21 (Jardiance) metformin 500 mg tablet 1,000 mg PO BID #360 tabs 06/24/21 pravastatin 40 mg tablet 40 mg PO DAILY #90 tab-caps 06/24/21 trazodone 50 mg tablet 50 mg PO DAILY PRN insomnia #90 06/24/21 tabs carbamazepine 200 mg tablet 200 mg PO BID #180 tab-caps 08/14/21 duloxetine 60 mg capsule,delayed 60 mg PO DAILY #90 tab-caps 08/14/21 release (Cymbalta) levothyroxine 137 mcg tablet 137 mcg PO DAILY #90 tabs 11/20/21 Current Visit Medications: Current Medications Generic Name Dose Route Start Last Admin Trade Name Freq PRN Reason Stop Dose Admin Hyoscyamine Sulfate 0.125 mg 11/14/22 19:51 Hyoscyamine 0.125 Mg Sl/Oral/Chew SL DIRECTED PRN Ringer's Solution 1,000 mls @ 80 mls/hr 03/02/22 06:00 03/02/22 08:50 IV 03/02/22 23:59 80 mls/hr INFUSION JON Administration IV Miscellaneous Supplies 1 each 03/02/22 06:00 Iv Access IV 03/02/22 23:59 DIRECTED JON Ondansetron HCl 4 mg 03/01/22 19:51 Ondansetron 4 Mg/2 Ml Vial IVP Q4H PRN PRN Nausea / Vomiting Sodium Chloride 0 ml 03/02/22 06:00 Normal Saline Flush 10 Ml Syr IV 03/02/22 23:59 PRN PRN Sodium Chloride 0 ml 03/02/22 06:00 Normal Saline 10 Ml Vial IJ 03/02/22 23:59 DIRECTED PRN Sterile Water 0 ml 03/02/22 06:00 Water,Injection,Sterile 10 Ml Vial IJ 03/02/22 23:59 DIRECTED PRN PFSH Active Problems Active Problems: Problem Status Onset Code Hyperlipidemia E78.5 Hypothyroidism E03.9 Primary fibromyalgia syndrome M79.7 Tubular adenoma of colon 02/06/16 D12.6 Generalized anxiety disorder F41.1 Migraine headache G43.909 PTSD (post-traumatic stress disorder) F43.10 Osteopenia M85.80 Osteoarthritis M19.90 Epidermoid cyst of skin of left breast L72.0 Type 2 diabetes mellitus with diabetic neuropathy E11.40 Major depressive disorder, recurrent F33.9 Medical History Medical History (Updated 03/02/22 @ 08:32 by Rula Dietrich) COVID-19 virus infection (~12/2021) Former cigarette smoker Hx of diabetes mellitus Thyroid follicular adenoma S/p partial thyroidectomy Vitamin D deficiency Surgical History Surgical History H/O bilateral oophorectomy (~02/2004) History of carpal tunnel surgery (02/11/14) Left 02/11/14. Right 02/25/14. S/P colonoscopy (02/06/16) S/P left knee arthroscopy x 4, 1989, 1993 (+meniscus repair), 2003, 2009 S/P partial thyroidectomy (~2002) for benign follicular adenoma; right lobectomy S/P AARON (total abdominal hysterectomy) (~1993) for endometriosis Tobacco Smoking/Tobacco Use Status: Former Tobacco Use Passive smoking exposure: Yes Second hand exposure: Yes Alcohol Alcohol Intake: current Alcohol intake frequency: holidays/special occasions only Alcohol type: wine Substance Use Substance use: Never Substance use type: does not use Details: alcohol: t-30 Prental History History 4 Para Hx # Term Pregnancies 2 Multiple births Hx # Pregnancies Ectopic pregnancies AB induced Hx Number of Living Children 2 AB spontaneous 2 Vital Signs and Lab Results Vital Signs Most Recent Vital Signs in EMR: Most Recent Vital Signs Temp Pulse Resp BP Pulse Ox 36.4 C L 78 20 134/80 98 03/02/22 08:35 03/02/22 08:35 03/02/22 08:35 03/02/22 08:35 03/02/22 08:35 Point of Care Results Point of Care Results: Finger Stick Blood Glucose 156 03/02/22 08:59 Lab Results Blood Type / Crossmatch: No Data to Display Complete Blood Count: No Data to Display Complete Metabolic Panel: Hemoglobin A1c 4.6 % (4.5-5.7) 02/12/22 11:19 Liver Function Panel: No Data to Display Coagulation Panel: No Data to Display Cardiac Panel: No Data to Display Arterial Blood Gas: No Data to Display Venous Blood Gas: No Data to Display Pancreas Panel: No Data to Display Thyroid Panel: No Data to Display Infectious Disease: No Data to Display Blood Cultures: No Data to Display Toxicology Panel: No Data to Display Anesthesia Assessment and Plan Anesthesia History Personal History: No History of Anesthesia Complications Family History: No Family History of Anesthesia Complications Exercise Tolerance Exercise Tolerance: Metabolic Equivalents>4 Pertinent Negatives Pertinent Negatives: No Symptoms of GERD Cardiac & Pulmonary Exam Cardiac Exam: Normal S1/S2 Heart Sounds Pulmonary Exam: Clear Bilateral Breath Sounds Implantable Cardiac Device Does patient have a Pacemaker or an ICD?: No Airway Exam Known Difficult Airway: No Mallampati Class: 3 Mouth Opening: Normal (> 3cm) Thyromental Distance: Greater than 3 cm Neck Range of Motion: Full ROM Neck Circumference: Thick Teeth Condition: Normal Dentition ASA Classification ASA Score: ASA 2 Emergency Case?: No NPO Status NPO Status: NPO Clears >2 hours, Solids >8 hours Anesthesia Plan Resuscitation Status: Full Code Anesthesia Technique: General Anesthesia Airway Planned: Natural Airway Monitors Used: Standard Monitors
[2022-03-02 09:35] VITALS: BMI 32.5
--- NOTE | 2022-03-02 10:05 | BOWEL_PTH ---
PATIENT: Shantal Dickerson LOC: [facility] U#:[id number] AGE/SX: 61/F ROOM: RE03/02/[address]: Jeff Ellison MD : [id number] BED: DIS: 03/02/2022 SPEC #: [id number] RECD: 03/02/22 12:22 STATUS: SUDHAKAR REQ #: [id number] MIKE: 03/02/22 10:[address]: Jeff Ellison DEPT: Surgical Specimen RECD BY: Taylor Hernandez ENTERED: 03/02/22 12:23 SP TYPE: Bowel OTHR DR: Etelvina Villela, MARTIN Tissues: 1 - BIOPSY BOWEL Procedures: GROSS AND MICRO LEVEL 4 Comments: [id number]
[2022-03-02 10:17] VITALS: BP 137/69; PULSE 74; RESP 20; TEMP 36.4; O2SAT 94
[2022-03-02 10:44] VITALS: BP 142/70; PULSE 66; RESP 18; TEMP 36.7; O2SAT 98
--- NOTE | 2022-03-02 11:09 | W.ANESPOSTOP ---
Postoperative Evaluation Date, Time and Location Date Performed: 03/02/22 Time Performed: 11:10 Patient Location: Day Surgery Unit Vital Signs Most Recent Imported Vital Signs: Most Recent Vital Signs Temp Pulse Resp BP Pulse Ox 36.7 C 66 18 142/70 H 98 03/02/22 10:44 03/02/22 10:44 03/02/22 10:44 03/02/22 10:44 03/02/22 10:44 Pain Score Most Recent Pain Score: Most Recent Pain Score Pain Level 2 03/02/22 10:44 Assessment Mental Status: Awake (Alert & Oriented to Patient Baseline) Airway and Respiratory Function: Patent airway with normal (patient baseline) respiratory exam Cardiovascular Function: Hemodynamically Stable Hydration Status: Adequately Hydrated Nausea & Vomiting: No Nausea or Vomiting Pain: Pt. Denies Any Pain Peripheral Nerve Block: Patient did not receive a nerve block
== END 2022-03-02 11:17 | disposition home or self-care (01) ==
PROVIDERS: PCP Nurse Practitioner Family; Visit Provider Surgery
PROC: 0DJD8ZZ Inspection of Lower Intestinal Tract, Via Natural or Artificial Opening Endoscopic (ICD-10-PCS; CPT 45378; principal; 2022-03-02 09:00)
DX: Z12.11 Encounter for screening for malignant neoplasm of colon (principal); K63.5 Polyp of colon; Z86.010 Personal history of colon polyps; K57.30 Diverticulosis of large intestine without perforation or abscess without bleeding
CPT/HCPCS: 45380; 88305

== ENCOUNTER 2022-05-19 04:18 | Outpatient (CLI) | payer MEDICARE, MEDICAID, SELFPAY ==
[2022-05-19 09:20] LABS: Hemoglobin A1C 6.8 % (<5.7)
[2022-05-19 09:21] LABS: ALT 44 U/L (14-59); AST 33 U/L (15-37); Albumin 4.1 g/dL (3.4-5.0); Alkaline Phosphatase 101 U/L (46-116); Anion Gap 9.8 mmol/L (3-11); BUN 17 mg/dL (7-18); Bilirubin, Total 0.4 mg/dL (0.2-1.0); CO2 29.2 mmol/L (21.0-32.0); Chloride 100 mmol/L (98-107); Glucose 116 mg/dL (74-106); Potassium 4.1 mmol/L (3.5-5.1); Sodium 139 mmol/L (136-145); TSH 0.06 uIU/mL (0.36-3.74); Total Protein 8.2 g/dL (6.4-8.2)
[2022-05-19 09:31] LABS: COMMENT (LAB VIEW ONLY) 69.75 mg/dL; Microalb ug/mg Crea 9.7 ug/mg Cr
== END 2022-05-19 04:19 | disposition home or self-care (01) ==
LOC: LBO 04:18
PROVIDERS: PCP Nurse Practitioner Family; Visit Provider Nurse Practitioner Family
DX: E11.40 Type 2 diabetes mellitus with diabetic neuropathy, unspecified (principal); E03.9 Hypothyroidism, unspecified
CPT/HCPCS: 36415; 80053; 82043; 82570; 83036; 84439; 84443

== ENCOUNTER 2022-06-07 01:15 | Outpatient (CLI) | payer MEDICARE, MEDICAID, SELFPAY ==
--- NOTE | 2022-06-07 08:30 | DI.MAMMO_ITS ---
Exam(s) MAMMO SCREENING EXAM: MAMMO SCREENING CLINICAL HISTORY: screening,Z12.39 TECHNIQUE: Mammograms were interpreted according to the usual protocol including computer analysis w [employer] CAD system, tomosynthesis and C-view imaging. COMPARISON: 2012 through 2020 FINDINGS: The breasts are composed of scattered fibroglandular densities, Breast Density category B. No suspicious masses or suspicious microcalcifications are seen. No skin thickening or abnormal axillary lymph nodes are seen. There has been no significant change from prior exams. IMPRESSION: BI-RADS Category 1, Negative mammogram Yearly screening mammography is recommended. Breast Density - Category B, scattered fibroglandular densities. A negative radiographic report should not delay biopsy if a dominant or clinically suspicious mass is present. Up to ten percent of cancers are not identified on mammography. A negative report may reinforce clinical impression. Adenosis and dense breasts may obscure an underlying neoplasm. False positive reports average 6 to 10%. Patient will receive a letter notifying them of these results.
--- NOTE | 2022-06-07 16:17 | DI.DEXA_ITS ---
Exam(s) XR DEXA BONE DENSITY W/WO MARIA LUISA EXAM: XR DEXA BONE DENSITY W/WO MARIA LUISA CLINICAL HISTORY: osteopenia,SCREENING FOR OSTEOPOROSIS, Z78.0 TECHNIQUE: [email or web address] C densitometer analysis of left hip, lumbar spine and left forearm. COMPARISON: 2019 FINDINGS: Lateral view of the thoracic and lumbar spine shows no evidence of compression fractures. Bone mineral density measurements of the lumbar spine correspond to a total T-score of -0.9, in the n ormal range. Represents an increase of 2.9 percent compared with prior. Bone mineral density measurements of the left hip correspond to a total T-score of 0.4. The femoral neck T-score is -1.3, in the mildly osteopenic range. Not significantly changed from prior.. The left forearm bone mineral density measurements correspond to a T-score of the distal 3rd of 0.2, in the normal range, not significantly changed from prior.. IMPRESSION: Normal bone mineral density of the lumbar spine and left forearm. Mild osteopenia of the left hip.
== END 2022-06-07 01:35 ==
LOC: DI 01:15
PROVIDERS: PCP Nurse Practitioner Family; Visit Provider Nurse Practitioner Family
DX: M85.88 Other specified disorders of bone density and structure, other site (principal); Z78.0 Asymptomatic menopausal state; Z12.31 Encounter for screening mammogram for malignant neoplasm of breast; Z13.820 Encounter for screening for osteoporosis
CPT/HCPCS: 77063; 77067; 77080

== ENCOUNTER 2023-02-09 03:44 | Outpatient (CLI) | payer OTHER, MEDICAID, SELFPAY ==
[2023-02-09 13:02] LABS: TSH (W/Ref FT4) 1.57 uIU/mL (0.36-3.74)
[2023-02-09 13:13] LABS: Hemoglobin A1C 7.3 % (<5.7)
== END 2023-02-09 03:45 | disposition home or self-care (01) ==
LOC: LOS 03:44
PROVIDERS: PCP Nurse Practitioner Family; Visit Provider Nurse Practitioner Family
DX: E03.9 Hypothyroidism, unspecified (principal); E11.9 Type 2 diabetes mellitus without complications
CPT/HCPCS: 36415; 83036; 84443

== ENCOUNTER → 2023-02-17 01:09 | Outpatient (CLI) | payer OTHER, MEDICAID, SELFPAY ==
--- NOTE | 2023-02-17 12:48 | DI.RAD_ITS ---
Exam(s) XR HIP LT COMPLETE AP PELVIS EXAM: XR HIP LT COMPLETE AP PELVIS CLINICAL HISTORY: left hip pain,M25.552. TECHNIQUE: 2D digital imaging was performed of the left hip. Three views were obtained. AP pelvis and lateral left hip views were obtained. COMPARISON: No exams were available for comparison FINDINGS: BONES: No acute fracture is present. No bony destructive lesion is seen. JOINTS: No dislocation present. There is mild narrowing of the hip joints bilaterally, right greater than left. The sacroiliac joints and symphysis pubis are unremarkable. SOFT TISSUE: Normal. IMPRESSION: Mild narrowing of the hip joints bilaterally, right greater than left. DATA REPOSITORY: RADIATION DOSE DELIVERED:
== END ==
PROVIDERS: PCP Nurse Practitioner Family; Visit Provider Nurse Practitioner Family
DX: M16.0 Bilateral primary osteoarthritis of hip (principal)
CPT/HCPCS: 73502

== ENCOUNTER → 2023-03-02 01:34 | Outpatient (CLI) | payer OTHER, MEDICAID, SELFPAY ==
--- NOTE | 2023-03-02 07:45 | DI.CTLCSR_ITS ---
Exam(s) CT CHEST LUNG CANCER SCREEN EXAM: CT CHEST LUNG CANCER SCREEN CLINICAL HISTORY: Screening for lung cancer,former smoker, z87.891. TECHNIQUE: Imaging Protocol: Low Dose Technique CONTRAST MATERIAL: None COMPARISON: CT CT CHEST LUNG CANCER SCREEN from 02/24/2022 FINDINGS: CHEST: LUNGS: There are no ominous pulmonary nodules. There are no confluent infiltrates. No pleural effusi ons. Tiny calcified granuloma in the right lung again noted. MEDIASTINUM: There is no obvious hilar nor mediastinal adenopathy. CARDIAC: Heart size is normal. There is no pericardial effusion.Caliber of the thoracic aorta is wit hin normal limits. OTHER: OSSEOUS: No significant osseous lesions.. IMPRESSION: 1. No significant pulmonary findings. No significant nodules. 2. No pleural effusions nor intrathoracic adenopathy. 3. Lung RADS Cat 1 - Negative: No nodules and definitely benign nodules Lung-RADS 1.0 CATEGORIES: Category 0 - Prior chest CT exam(s) being located for comparison. Category 1 - Annual screening in 12 months. No nodules or definitely benign nodules. Category 2 - Annual screening in 12 months. Benign appearance. Nodules with low likelihood of becomin g active cancer. Category 3 - 6-month follow-up. Probably benign. Short-term follow-up suggested. Nodules with low lik elihood of becoming active cancer. Category 4A - 3-month follow-up and CT/PET if >8 mm in size. Suspicious finding. Findings which requi re additional testing. Category 4B - Findings which require additional testing and tissue sampling. Category 4X - Category 3 or 4 nodules with additional features or imaging findings that increases the suspicion of malignancy. Modifier S- Potentially clinically significant findings (non lung cancer) RADIATION DOSE DELIVERED: Total DLP DATA REPOSITORY: All CT scans at this facility are submitted to the National Radiology Data Registry (NRDR) Dose Index Registry (DIR) with the [employer] (A[employer]). RADIATION OPTIMIZATION: All CT scans at this facility use at least one of these dose optimization te chniques: automated exposure control; mA and/or kV adjustment per patient size (includes targeted exa ms where dose is matched to clinical indication); or iterative reconstruction.
== END ==
PROVIDERS: PCP Nurse Practitioner Family; Visit Provider Nurse Practitioner Family
DX: Z87.891 Personal history of nicotine dependence (principal); Z12.2 Encounter for screening for malignant neoplasm of respiratory organs
CPT/HCPCS: 71271

== ENCOUNTER → 2023-06-23 01:56 | Outpatient (CLI) | payer OTHER, MEDICAID, SELFPAY | PROVIDERS: PCP Nurse Practitioner Family; Visit Provider Nurse Practitioner Family | DX: Z12.31 Encounter for screening mammogram for malignant neoplasm of breast (principal) | CPT/HCPCS: 77063; 77067 ==

== ENCOUNTER 2023-08-31 10:51 | Outpatient (CLI) | payer OTHER, MEDICAID, SELFPAY ==
[2023-08-31 13:02] LABS: Anion Gap 11.3 mmol/L (3-11); BUN 12 mg/dL (7-18); CO2 28.7 mmol/L (21.0-32.0); CREATININE 0.9 mg/dL (0.55-1.02); Calcium 8.9 mg/dL (8.5-10.1); Calculated LDL 143 mg/dL (<100); Chloride 103 mmol/L (98-107); Cholesterol 238 mg/dL (<200); Estimated GFR 73.19 (mL/min/1.73m2); Glucose 113 mg/dL (74-106); HDL Cholesterol 63 mg/dL (40-60); Potassium 4.2 mmol/L (3.5-5.1); Sodium 143 mmol/L (136-145); TSH (W/Ref FT4) 21.47 uIU/mL (0.36-3.74); Triglyceride 164 mg/dL (<150); Vitamin B12 289 pg/mL (193-986)
[2023-08-31 13:03] LABS: Hemoglobin A1C 7.2 % (<5.7)
[2023-08-31 13:23] LABS: FREE T4 0.54 ng/dL (0.76-1.46)
[2023-09-01 10:25] LABS: Hepatitis C Ab w Rflx HCV PCR Negative (Negative)
== END 2023-08-31 10:52 | disposition home or self-care (01) ==
LOC: LOS 10:51
PROVIDERS: PCP Nurse Practitioner Family; Referring Provider Nurse Practitioner Family; Visit Provider Nurse Practitioner Family
DX: E11.40 Type 2 diabetes mellitus with diabetic neuropathy, unspecified (principal); E03.9 Hypothyroidism, unspecified
CPT/HCPCS: 36415; 80048; 80061; 86803; 82607; 83036; 84439; 84443

== ENCOUNTER 2023-10-07 15:16 | Emergency (ER) | payer OTHER, MEDICAID, SELFPAY ==
[2023-10-07 15:20] VITALS: BP 132/62; PULSE 77; RESP 20; TEMP 36.9; O2SAT 96
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
--- NOTE | 2023-10-07 15:45 | DI.RAD_ITS ---
Exam(s) XR CHEST 2V PA LATERAL EXAM: XR CHEST 2V PA LATERAL CLINICAL HISTORY: Cough shortness of breath. TECHNIQUE: 2D digital imaging was performed. COMPARISON: CR,XR XR CHEST 2V PA LATERAL from 11/12/2021 FINDINGS: 2 views: Heart size is normal. The mediastinum is not widened. Lungs are clear. No infiltrates nor pleural effusions. IMPRESSION: No acute pulmonary findings. DATA REPOSITORY: RADIATION DOSE DELIVERED:
[2023-10-07] MEDS: Benzonatate 100 MG CAP PO (15:56)
[2023-10-07] MEDS: Acetaminophen 500 MG TAB 1000 MG PO (15:56)
[2023-10-07 15:57] VITALS: O2SAT 96
[2023-10-07 16:50] VITALS: BP 145/60; PULSE 80; RESP 16; TEMP 37.1; O2SAT 98
== END 2023-10-07 17:02 | disposition home or self-care (01) ==
PROVIDERS: Emergency Provider Emergency Medicine; PCP Nurse Practitioner Family
DX: J40 Bronchitis, not specified as acute or chronic (principal); R06.02 Shortness of breath; I10 Essential (primary) hypertension; R05.1 Acute cough
CPT/HCPCS: 99283; 71046

== ENCOUNTER 2023-11-28 03:41 | Outpatient (CLI) | payer OTHER, MEDICAID, SELFPAY ==
[2023-11-28 12:55] LABS: TSH (W/Ref FT4) 0.02 uIU/mL (0.36-3.74)
[2023-11-28 13:22] LABS: FREE T4 1.07 ng/dL (0.76-1.46)
[2023-11-28 19:18] LABS: HBs Antibody, Quant <3.1 mIU/mL (See Note); Hep B Surface Ab Negative (See Note); Hepatitis B Core Antibody Negative (Negative); Hepatitis B Surface Antigen Negative (Negative)
== END 2023-11-28 03:42 | disposition home or self-care (01) ==
LOC: LOS 03:41
PROVIDERS: PCP Nurse Practitioner Family; Referring Provider Nurse Practitioner Family; Visit Provider Nurse Practitioner Family
DX: Z11.59 Encounter for screening for other viral diseases (principal); E03.9 Hypothyroidism, unspecified; E11.40 Type 2 diabetes mellitus with diabetic neuropathy, unspecified
CPT/HCPCS: 36415; 86704; 86706; 87340; 83036; 84439; 84443

== ENCOUNTER 2024-02-28 02:45 | Outpatient (CLI) | payer OTHER, MEDICAID, SELFPAY ==
--- NOTE | 2024-02-28 13:30 | DI.US_ITS ---
APPROVED REPORT EXAM: Comprehensive 2D, Doppler, and color-flow Echocardiogram Patient Location: Out-Patient Protective Services Officer: Florecita Wheat RDCS (AE) Indications: SOB, Known aortic valve regurgitation Other Information Study Quality: Adequate. Technically limited study due to body habitus. Conclusion Normal left ventricular wall thickness and chamber size. Ejection fraction is 50%. Wall motion is n ormal Normal right ventricular size and function Both atria are normal in size Trileaflet aortic valve with mild regurgitation There is no additional structural or hemodynamically significant valvular disease Estimated right ventricular systolic pressure is 24 mmHg Wall motion Left Ventricle The left ventricle is normal size. The left ventricular systolic function is normal. The left ventric ular ejection fraction is within the normal range. There is normal left ventricular wall thickness. T here is normal LV segmental wall motion. There is no ventricular septal defect visualized. LVEF is 58 %. Right Ventricle The right ventricle is normal size. The right ventricular systolic function is normal. Atria The left atrium size is normal. The right atrium size is normal. The interatrial septum is intact wit h no evidence for an atrial septal defect. Aortic Valve The aortic valve is normal in structure. Aortic valve is trileaflet. There is no aortic valvular sten osis. mild aortic regurgitation. Mitral Valve The mitral valve is normal in structure. No evidence of mitral valve stenosis. Trace mitral regurgit ation. Tricuspid Valve The tricuspid valve is normal in structure. There is no tricuspid valve stenosis. Trace to mild tricu spid regurgitation. The RVSP is 23.5 mmHg. Pulmonic Valve The pulmonary valve is normal in structure. There is no pulmonic valvular stenosis. Trace pulmonic re gurgitation. Great Vessels The aortic root is normal in size. The ascending aorta is normal in size. Aortic arch is not well vis ualized. IVC is normal in size and collapses >50% with inspiration. Pericardium There is no pericardial effusion. 2D Dimensions IVSD d PLAX 0.80 cm F: 0.6-1.0 Ao Root d 2.80 cm F: 2.7 - 3.3 LVPW d PLAX 0.80 cm F: 0.6 - 1.0 Ao Asc Diam d 2.88 cm F: 2.3 - 3.1 LVID d PLAX 4.65 cm F: 3.8 - 5.2 LVDs 3.24 cm F: 2.2 - 3.5 LV EF Teichholz 57.7 % FS 30.29 % LV EDV (Teich) 99.9 mL LV ESV (Teich) 42.3 mL M-Mode TAPSE 2.19 cm (M/F) >1.7 Auto EF LV EDV A4C 94.2 mL LV EDV A2C 72.9 mL LV EDV BP 83.3 mL LV ESV A4C 39.3 mL LV ESV A2C 32.1 mL LV ESV BP 35.6 mL LVEF(%) A4C 58.3 % LVEF(%) A2C 56.0 % LVEF(%) BP 57.3 % LV SV A4C 54.9 ml LV SV A2C 40.8 ml LV SV BP 47.7 ml LV CO A4C 3.6 L/min LV CO A2C 2.6 L/min LV CO BP 3.1 L/min HR A4C 66.16 BPM HR A2C 63.14 BPM LV EDV Index (BP) LA Volume LA Length A4C 4.4 cm LA Length A2C 4.1 cm LA Area A4C s 13.05 cm2 LA Area A2C s 11.40 cm2 LA Vol A4C A-L 32.56 mL LA Vol A2C A-L 26.62 mL LA Vol Biplane A-L 30.5 mL LA Vol/BSA A4C A-L LA Vol/BSA A2C A-L LA Vol/BSA BP A-L 16.7 mL/m2 LA Vol A4C MOD 30.8 mL LA Vol A2C MOD 25.4 mL LA Vol BP MOD 28.8 mL RA Volume RA Area A4C 10.1 cm2 RA ESV A4C (A-L) 20.8mL RA Vol/BSA A4C A-L RA Length A4C 4.2 cm RA ESV A4C (MOD) 20.0mL LV Diastology MV E' medial 0.056 (>0.07 m/s) MV E Vmax 0.64 (0.4-1.3 m/s) MV E/E' MED 11.37 (<14) MV A Vmax 0.75 (0.4-1.3 m/s) MV E' lateral 0.071 (>0.1 m/s) E/A Ratio 0.9 MV E/E' LAT 8.95 (<14) MV E' Average 0.064 m/s MV E/E'(average) 10.02 Aortic Valve AoV Vmax 1.50 m/s LVOT Vmax 1.08 m/s AoV Peak Grad 41.9 mmHg LVOT Peak Grad 4.7 mmHg AoV Area (Vmax) 1.75 cm2 LVOT VTI 0.263 m AoV VTI 0.314 m LVOT Mean Grad 2.4 mmHg AoV Mean Elkin. 0.97 m/s LVOT SV 63.90 mL AoV Mean Grad 4.4 mmHg LVOT Diam s 1.75 cm AoV Area (VTI) 2.03 cm2 AV Regurg Peak Gr. 9.04 mmHg Velocity Ratio 0.72 AR Decel Mcdonald 1.5m/sec2 AR DT 2949 msec AR PHT 855 msec AR Vmax 4.32 m/s Mitral Valve MV DT 267 (160-240 msec) MV Vmax TIPS 0.75 m/s MV Mean Grad 1.0 (<2mmHg) MV VTI 0.245 m Pulmonary Valve PV Vmax 0.95 (0.5-1.5 m/s) RVOT Vmax 0.81 m/s PV Peak Grad 3.6 mmHg RVOT Peak Gr. 2.6 mmHg PV Mean Elkin 0.68 m/s RVOT VTI 0.174 m PV Mean Grad 2.1 mmHg RVOT Mean Gr. 1.4 mmHg Tricuspid Valve RA Pressure 3.00 mmHg TR Vmax 2.26 m/s TV S' 0.11 m/s TR Peak Grad 20.5 mmHg RVSP (TR) 23.5 mmHg
== END 2024-02-28 03:05 ==
LOC: DI 02:45
PROVIDERS: PCP Nurse Practitioner Family; Visit Provider Nurse Practitioner Family
DX: I35.1 Nonrheumatic aortic (valve) insufficiency (principal); I36.0 Nonrheumatic tricuspid (valve) stenosis
CPT/HCPCS: 93306

== ENCOUNTER 2024-03-01 02:12 | Outpatient (CLI) | payer OTHER, MEDICAID, SELFPAY ==
[2024-03-01] MEDS: Levalbuterol HFA 15 GM INH 4 PUFF IH (11:23)
[2024-03-01] MEDS: Inhaler, Assist Device 1 EACH MC (11:23)
--- NOTE | 2024-03-02 09:50 | W.PFT ---
Date of service: 03/01/24 Time of Service: 10:02 Pulmonary Function Test Result Indications: Dysonea on exertion Interpretation Spirometry: There is no airflow limitation. No bronchodilator response. Inspiratory and expiratory blunting on flow volume loop. Lung Volumes: Normal lung volumes Diffusion Capacity: Normal diffusion Airway Pressure: Normal airways resistance Impression Normal pulmonary function testing. The inspiratory and expiratory loop blunting is of unclear significance. Not clearing a fixed obstruction but could consider neck and chest imaging for further assessment if clinically appropriate. Clinical Correlation therefore is recommended.
== END 2024-03-01 02:13 | disposition home or self-care (01) ==
LOC: RT 02:12
PROVIDERS: PCP Nurse Practitioner Family; Visit Provider Student in an Organized Health Care Education/Training Program
DX: R06.09 Other forms of dyspnea (principal); Z87.891 Personal history of nicotine dependence
CPT/HCPCS: 94060; 94726; 94729

== ENCOUNTER 2024-03-06 01:58 | Outpatient (CLI) | payer OTHER, MEDICAID, SELFPAY ==
--- NOTE | 2024-03-06 06:30 | DI.CTLCSR_ITS ---
Exam(s) CT CHEST LUNG CANCER SCREEN EXAM: CT CHEST LUNG CANCER SCREEN CLINICAL HISTORY: Screening for lung cancer,former smoker, z87.891 TECHNIQUE: Imaging Protocol: Axial computed tomography images with coronal and sagittal reformatted images were created and reviewed. Low dose screening protocol. COMPARISON: CT CT CHEST LUNG CANCER SCREEN from 03/02/2023 FINDINGS: Tracheobronchial tree: No bronchiectasis or mucus plugging. Mediastinum and Jojo: No dominant adenopathy or fluid collection. Pulmonary parenchyma: No consolidation or dominant measurable mass. Mild emphysematous changes. No si gnificant interstitial changes. Lung Nodules: Small calcified granuloma again noted posterior left lower lobe. There are a few other tiny calcified granulomas. No suspicious nodules. Pleura: No effusion. No pneumothorax. Heart: The heart is mildly dilated. Mild coronary artery calcifications are seen. No pericardial effu azucena. Aorta: Thoracic aorta non-dilated.Mild calcification. Upper abdomen: Unremarkable. Bones: Unremarkable for age. Soft Tissues: Unremarkable. IMPRESSION: No suspicious pulmonary nodules. Lung RADS Cat 1 - Negative: No nodules and definitely benign nodules Lung-RADS 1.0 CATEGORIES: Category 0 - Prior chest CT exam(s) being located for comparison. Category 1 - Annual screening in 12 months. No nodules or definitely benign nodules. Category 2 - Annual screening in 12 months. Benign appearance. Nodules with low likelihood of becomin g active cancer. Category 3 - 6-month follow-up. Probably benign. Short-term follow-up suggested. Nodules with low lik elihood of becoming active cancer. Category 4A - 3-month follow-up and CT/PET if >8 mm in size. Suspicious finding. Findings which requi re additional testing. Category 4B - Findings which require additional testing and tissue sampling. Category 4X - Category 3 or 4 nodules with additional features or imaging findings that increases the suspicion of malignancy. Modifier S- Potentially clinically significant findings (non lung cancer) RADIATION DOSE DELIVERED: !Error Total DLP DATA REPOSITORY: All CT scans at this facility are submitted to the National Radiology Data Registry (NRDR) Dose Index Registry (DIR) with the [employer] (ACR). RADIATION OPTIMIZATION: All CT scans at this facility use at least one of these dose optimization te chniques: automated exposure control; mA and/or kV adjustment per patient size (includes targeted exa ms where dose is matched to clinical indication); or iterative reconstruction.
== END 2024-03-06 02:18 ==
LOC: DI 01:58
PROVIDERS: PCP Nurse Practitioner Family; Visit Provider Nurse Practitioner Family
DX: Z87.891 Personal history of nicotine dependence (principal); Z12.2 Encounter for screening for malignant neoplasm of respiratory organs
CPT/HCPCS: 71271

== ENCOUNTER 2024-03-06 11:02 | Outpatient (CLI) | payer OTHER, MEDICAID, SELFPAY ==
[2024-03-06 08:57] LABS: Hemoglobin A1C 6.1 % (<5.7)
[2024-03-06 09:44] LABS: TSH (W/Ref FT4) 0.24 uIU/mL (0.36-3.74); Vitamin D 25 Total 21.3 ng/mL (30-100)
[2024-03-06 10:08] LABS: FREE T4 0.95 ng/dL (0.76-1.46)
[2024-03-06 19:21] LABS: HIV-1/2 Ag & Ab Screen Negative (Negative)
== END 2024-03-06 11:03 | disposition home or self-care (01) ==
LOC: LBO 11:03
PROVIDERS: PCP Nurse Practitioner Family; Visit Provider Nurse Practitioner Family
DX: M85.80 Other specified disorders of bone density and structure, unspecified site (principal); E11.40 Type 2 diabetes mellitus with diabetic neuropathy, unspecified; Z11.4 Encounter for screening for human immunodeficiency virus [HIV]; E03.9 Hypothyroidism, unspecified
CPT/HCPCS: 36415; 82306; 87389; 83036; 84439; 84443

== ENCOUNTER 2024-07-04 08:07 | Outpatient (CLI) | payer MEDICARE, MEDICAID, SELFPAY ==
[2024-07-04 13:03] LABS: ALT 25 U/L (14-59); AST 14 U/L (15-37); Albumin 3.6 g/dL (3.4-5.0); Alkaline Phosphatase 98 U/L (46-116); BUN 12 mg/dL (7-18); Bilirubin, Total 0.2 mg/dL (0.2-1.0); Calcium 8.7 mg/dL (8.5-10.1); Calculated LDL 153 mg/dL (<100); Chloride 105 mmol/L (98-107); Cholesterol 257 mg/dL (<200); Estimated GFR 64.09 (mL/min/1.73m2); Glucose 126 mg/dL (74-106); HDL Cholesterol 51 mg/dL (>or=50); Potassium 4.1 mmol/L (3.5-5.1); Sodium 144 mmol/L (136-145); Total Protein 6.9 g/dL (6.4-8.2); Triglyceride 268 mg/dL (<150); Vitamin D 25 Total 45 ng/mL (30-100)
== END 2024-07-04 08:08 | disposition home or self-care (01) ==
LOC: LBN 08:32 → LOS 08:42
PROVIDERS: PCP Nurse Practitioner Family; Visit Provider Nurse Practitioner Family
DX: E03.9 Hypothyroidism, unspecified (principal); E11.40 Type 2 diabetes mellitus with diabetic neuropathy, unspecified; E55.9 Vitamin D deficiency, unspecified
CPT/HCPCS: 36415; 80053; 80061; 82306; 84443

== ENCOUNTER 2024-08-10 00:26 | Outpatient (CLI) | payer MEDICARE, MEDICAID, SELFPAY ==
--- NOTE | 2024-08-10 06:30 | DI.US_ITS ---
Exam(s) US SOFT TISS ABD WALL/LOW BACK EXAM: US SOFT TISS ABD WALL/LOW BACK CLINICAL HISTORY: lump over lumbar spine, painful,r22.9. TECHNIQUE: Ultrasound was performed using standard protocol. COMPARISON: US US ECHOCARDIOGRAM from 02/28/2024 FINDINGS: Dedicated ultrasound examination area of concern the lower back midline performed. Submitted images reveal a 1.7 x 1.7 x 0.9 cm complex cystic subcutaneous nodule containing internal s eptations and internal echoes. May represent an abscess. Other pathology also be considered. IMPRESSION: As above. Probable abscess in the correct clinical situation. Other pathology is also considered DATA REPOSITORY:
== END 2024-08-10 00:46 ==
LOC: DI 00:27
PROVIDERS: PCP Nurse Practitioner Family; Visit Provider Nurse Practitioner Family
DX: R22.2 Localized swelling, mass and lump, trunk (principal)
CPT/HCPCS: 76705

== ENCOUNTER 2024-08-21 00:48 | Outpatient (CLI) | payer MEDICARE, SELFPAY ==
--- NOTE | 2024-08-21 09:45 | DI.RAD_ITS ---
Exam(s) XR KNEE LT 3V AP,LAT,DUYEN EXAM: XR KNEE LT 3V AP,LAT,DUYEN CLINICAL HISTORY: Mass of lateral left knee,Rr22.42. TECHNIQUE: 2D digital imaging was performed. Three views. COMPARISON: CR LEFT KNEE COMPLETE from 07/25/2007 CR RIGHT KNEE 3 VIEWS from 12/21/2013 FINDINGS: BONES: No acute fracture is present. No bony destructive lesion is seen. JOINTS: There is moderate narrowing of the medial femoral tibial joint space which also periarticular spurring and sclerosis. There is faint chondrocalcinosis. No joint effusion is seen. SOFT TISSUE: A BB marker was placed over the of palpable abnormality at the lateral aspect of the kne e with lies at the level of the lateral tibial plateau. There is soft tissue edema in this location however there is no foreign body, abnormal gas collection or calcification. There is no visible disc rete mass. IMPRESSION: Focal soft tissue edema is visible at the area of palpable abnormality. Moderate degenerative changes of the medial femoral tibial joint. DATA REPOSITORY: RADIATION DOSE DELIVERED:
== END 2024-08-21 01:08 ==
LOC: DI 00:48
PROVIDERS: PCP Nurse Practitioner Family; Visit Provider Nurse Practitioner Family
DX: R22.42 Localized swelling, mass and lump, left lower limb (principal); M17.12 Unilateral primary osteoarthritis, left knee
CPT/HCPCS: 73562

== ENCOUNTER 2024-09-11 01:35 | Outpatient (CLI) | payer MEDICARE, SELFPAY ==
--- NOTE | 2024-09-11 10:45 | DI.MRI_ITS ---
Exam(s) MR LOWER JOINT LT WO EXAM: MR LOWER JOINT LT WO CLINICAL HISTORY: edema,MASS LT KNEE,R22.42 TECHNIQUE: Multiplanar multisequence MRI of the knee was performed. COMPARISON: MR MRI L LOWER JOINT WO CONT from 12/25/2009 CR XR KNEE LT 3V AP,LAT,DUYEN from 08/21/2024 FINDINGS: EFFUSION: There is no evidence of joint effusion or Church cyst in the popliteal fossa. MARROW:There is no evidence of fracture, bone contusion, nor osteochondral defects.. There are no si gnificant osseous lesions. PATELLOFEMORAL COMPARTMENT: Quadriceps tendon is intact. There is mild fusiform thickening of the up per half of the patellar ligament which measures to 7.5 mm AP. There is minimal increased intrasubst ance signal within the superior aspect of the patellar ligament but no significant tearing. There is some edema in the subcutaneous soft tissue anterior to this structure as well as anterior to the ant erior tibial tubercle attachment site (but no abnormal marrow signal at these levels) There is significant thinning of the retropatellar cartilage over both medial and lateral facets, sli ghtly more prominent over the medial facet but significant over both sides of the posterior patella. There is no abnormal intraosseous signal in the patella. No degenerative subarticular cysts.There i s no intraosseous signal to suggest recent patellar dislocation. There are no patellar retinacular te ars. CRUCIATE LIGAMENTS: The anterior cruciate ligament is intact.The posterior cruciate ligament is intac t. MEDIAL COMPARTMENT/MEDIAL MENISCUS: There is significant attenuation of the medial meniscus related t o chronic tearing, prior instrumentation, or a combination there of. There is minimal if any remaini ng anterior horn of the medial meniscus and there is significant cartilage loss over this region as w ell as marginal osteophytes off the outer aspect of the medial compartment but no prominent bone jennifer a. The posterior horn of the medial meniscus is also significantly attenuated and there is suggestio n of tearing at the remaining thinned root posterior horn.. There is some thin fluid signal at and below the marginal osteophyte off the outer aspect of the medi al tibial plateau which may be part or remnant of a degenerative meniscal cyst at this level. MEDIAL COLLATERAL LIGAMENT: The MCL appears slightly thin but not torn. LATERAL COMPARTMENT/LATERAL MENISCUS: The lateral meniscus appear appears intact without evidence of attenuation or tearing and there is significantly less degenerative change in the lateral compartment . There does not appear to be significant thinning of the articular cartilage nor osteophytes in the lateral compartment and there is no subarticular marrow edema. ILIOTIBIAL BAND: Intact LATERAL COLLATERAL LIGAMENT COMPLEX: The fibular collateral ligament is intact. There is mild increa sed signal in the distal biceps femoris tendon but without significant tear of this structure..Poplit eus muscle and tendon are intact. OTHER: There is abnormal fluid signal in the soft tissues off the lateral aspect of the knee, this co rresponding to what is seen on recent plain films. This is a partially septated collection which is in proximity to the proximal tibial fibular joint and indeed there does appear to be a small joint ef fusion in this articulation. Suspect that this is a para-articular ganglia on coming off of this art iculation and extending from a level anteriorly at the iliotibial band (which itself appears unremark able) posteriorly to warts the region of the fibular collateral ligament. There is also a component which is cystic and septated in the adjacent more superficial subcutaneous fat measuring 3.5 cm crani ocaudal by 0.6 cm wide by up to 1 cm AP. This more superficial septated collection appears to be pro bably in communication with the deeper component of this finding. IMPRESSION: 1. The septated multicompartmental cystic finding on the lateral aspect of the knee described above w hich corresponds to the palpable a and plain film findings is a multi-septated fluid collection both deep and superficially located which is probably coming off of the proximal tibial fibular joint, giv en that there also appears to be a joint effusion at this articulation. It is probably a para-articu lar ganglia on originating from the tibial fibular joint. It is doubtful that this represents an ins inuating degenerative meniscal cyst as there are no tears of the lateral meniscus evident. 2. There are advanced degenerative changes in the medial compartment of the knee and significant atte nuation of the medial meniscus as described above which is probably related to combination chronic te aring and prior instrumentation/surgery. There also appears to be a superior surface tear in the wali n inguinal 10 UA did root of the posterior horn of the medial meniscus. The amount of remaining ante rior meniscal tissue in the medial meniscus is almost negligible. 3. There is significant chondromalacia patella involving retropatellar cartilage over both medial lat eral facets. There is no abnormal intraosseous signal in the patella itself nor significant patellar displacement and there are no patellar retinacular tears. 4. There is, however, some thickening of the superior half of the patellar ligament without high-grad e tear. There is some linear intrasubstance tubular signal abnormality in the lateral aspect of the patellar ligament at and below the mid level. There is, however, no high-grade tear of this structur e. 5. There is no significant knee joint effusion or Church cyst. 6. There are no cruciate nor collateral ligament tears. There is some mild tendinitis signal at the biceps femoris tendon insertion site on the fibular head styloid process but no high-grade tear DATA REPOSITORY:
== END 2024-09-11 01:55 ==
LOC: DI 01:36
PROVIDERS: PCP Nurse Practitioner Family; Visit Provider Nurse Practitioner Family
DX: R93.89 Abnormal findings on diagnostic imaging of other specified body structures; M17.12 Unilateral primary osteoarthritis, left knee
CPT/HCPCS: 73721

== ENCOUNTER → 2024-10-04 09:15 | Outpatient (BNVA) | payer MEDICARE, SELFPAY | PROVIDERS: PCP Nurse Practitioner Family; Referring Provider Nurse Practitioner Family; Visit Provider Physical Therapy Assistant | DX: L98.9 Disorder of the skin and subcutaneous tissue, unspecified (principal) | CPT/HCPCS: 99213 ==

== ENCOUNTER → 2024-10-17 10:35 | Outpatient (BNVA) | payer MEDICARE, SELFPAY | PROVIDERS: PCP Nurse Practitioner Family; Referring Provider Nurse Practitioner Family; Visit Provider Student in an Organized Health Care Education/Training Program | DX: M17.12 Unilateral primary osteoarthritis, left knee (principal); M67.462 Ganglion, left knee | CPT/HCPCS: 99213 ==

== ENCOUNTER 2024-11-26 01:56 | Outpatient (CLI) | payer MEDICARE, SELFPAY ==
--- NOTE | 2024-11-26 07:30 | DI.MAMMO_ITS ---
Exam(s) MAMMO SCREENING EXAM: MAMMO SCREENING CLINICAL HISTORY: screening,z12.39 TECHNIQUE: Mammograms were interpreted according to the usual protocol including computer analysis with CAD system, tomosynthesis and C-view imaging. COMPARISON: 2015 through 2023 FINDINGS: The breasts are composed of scattered fibroglandular densities, Breast Density category B. No suspicious masses or suspicious microcalcifications are seen. No skin thickening or abnormal axillary lymph nodes are seen. There has been no significant change from prior exams. IMPRESSION: BI-RADS Category 1, Negative mammogram Yearly screening mammography is recommended. Breast Density - Category B - There are scattered areas of fibroglandular density. Breast density Category C or D implies that the patient has dense breast tissue. Dense breast tissue can make it harder to find cancer on a mammogram. Dense breast tissue is also associated with an increased risk of breast cancer. This information about the result of the mammogram report was provided to the patient to raise their awareness. Use this report when you speak with the patient about their risks for breast cancer, which includes their family history. At that time, you may recommend additional screening tests (Ultrasound or MRI) as these tests may add significant information. A negative radiographic report should not delay biopsy if a dominant or clinically suspicious mass is present. Up to ten percent of cancers are not identified on mammography. A negative report may reinforce clinical impression. Adenosis and dense breasts may obscure an underlying neoplasm. False positive reports average 6 to 10%. Patient will receive a letter notifying them of these results.
--- NOTE | 2024-11-26 07:30 | DI.MRI_ITS ---
Exam(s) MR LOWER JOINT LT WO/W EXAM: MR LOWER JOINT LT WO/W CLINICAL HISTORY: GANGLION CYST lt knee, m67.462. TECHNIQUE: Multiplanar multisequence MRI was performed. CONTRAST MATERIAL: IV Contrast: 15 mL of Dotarem contrast administered. COMPARISON: CR XR KNEE LT 3V AP,LAT,DUYEN from 08/21/2024 MR MR LOWER JOINT LT WO from 09/11/2024 FINDINGS: BONES: There is no fracture or contusion pattern. JOINTS: No joint effusion is present. Articular cartilage: Patellofemoral joint: Severe thinning of the cartilage over the medial patellar facet. Medial femoral tibial joint: Articular cartilage thinning and periarticular spurring. Lateral femoral tibial joint: Periarticular spurring. Mild cartilage thinning. LIGAMENTS/TENDONS: Anterior Cruciate: Unremarkable. Posterior Cruciate: Unremarkable. Medial Collateral:Unremarkable. Lateral Collateral ligament complex: Unremarkable. Extensor mechanism: Unremarkable. Stable thickening without abnormal signal of the upper portion of the patellar tendon. Medial retinaculum: Unremarkable. Lateral retinaculum: Unremarkable. Popliteus: Unremarkable. MENISCI: The medial meniscus is diminutive. Chronic severe degeneration versus prior meniscectomy. The lateral meniscus is unremarkable. MUSCLES: Unremarkable. SOFT TISSUES: The previously noted multiloculated collection is no longer present in the soft tissues of the lateral aspect of the knee. There is minimal residual edema in this area. There is minimal fluid at the level of the proximal tibial fibular joint. IMPRESSION: The previously noted loculated collection at the lateral aspect of the knee in the soft tissues is no longer present. Minimal residual edema. No abnormal areas of enhancement. Degenerative changes of the medial femoral tibial joint. Stable appearance of severe degeneration versus prior medial meniscectomy DATA REPOSITORY:
[2024-11-26] MEDS: Gadoterate meglumine 20 ML SYRINGE 15 ML IVP (14:06)
[2024-11-26] MEDS: Normal Saline Flush 10 ML SYR IVP (14:07)
== END 2024-11-26 02:16 ==
LOC: DI 01:56
PROVIDERS: PCP Nurse Practitioner Family; Visit Provider Nurse Practitioner Family
DX: M67.462 Ganglion, left knee (principal); Z12.31 Encounter for screening mammogram for malignant neoplasm of breast; M17.12 Unilateral primary osteoarthritis, left knee
CPT/HCPCS: 77063; 77067; 73723

== ENCOUNTER → 2024-11-29 13:04 | Outpatient (BNVA) | payer MEDICARE, SELFPAY | PROVIDERS: PCP Nurse Practitioner Family; Referring Provider Nurse Practitioner Family; Visit Provider Physical Therapy Assistant | DX: L98.9 Disorder of the skin and subcutaneous tissue, unspecified (principal) | CPT/HCPCS: 11401 ==

== ENCOUNTER → 2024-12-11 11:31 | Outpatient (BNVA) | payer MEDICARE, SELFPAY | PROVIDERS: PCP Nurse Practitioner Family; Referring Provider Nurse Practitioner Family; Visit Provider Physical Therapy Assistant ==

== ENCOUNTER 2025-01-21 11:16 | Outpatient (CLI) | payer MEDICARE, SELFPAY ==
--- NOTE | 2025-01-21 10:30 | DI.RAD_ITS ---
Exam(s) XR HIP LT COMPLETE AP PELVIS EXAM: XR HIP LT COMPLETE AP PELVIS CLINICAL HISTORY: left hip pain. TECHNIQUE: 2D digital imaging was performed of the left hip. Two views were obtained. AP pelvis and lateral left hip views were obtained. COMPARISON: CR XR HIP LT COMPLETE AP PELVIS from 02/17/2023 FINDINGS: BONES: No acute fracture is present. No bony destructive lesion is seen. JOINTS: No dislocation present. The hips are well maintained. There is mild narrowing again seen of the hip joints. SOFT TISSUE: Normal. IMPRESSION: Stable mild joint space narrowing of the hips. DATA REPOSITORY: RADIATION DOSE DELIVERED:
== END 2025-01-21 11:17 | disposition home or self-care (01) ==
LOC: DIORS 11:17
PROVIDERS: PCP Nurse Practitioner Family; Referring Provider Nurse Practitioner Family; Visit Provider Student in an Organized Health Care Education/Training Program
DX: M17.12 Unilateral primary osteoarthritis, left knee (principal); M67.462 Ganglion, left knee; M25.552 Pain in left hip; E11.9 Type 2 diabetes mellitus without complications
CPT/HCPCS: 99214; 73502

== ENCOUNTER 2025-02-08 03:10 | Outpatient (CLI) | payer MEDICARE, SELFPAY ==
--- NOTE | 2025-02-08 13:30 | DI.US_ITS ---
APPROVED REPORT EXAM: Comprehensive 2D, Doppler, and color-flow Echocardiogram Patient Location: Out-Patient Donor Relations Manager: Florecita Wheat RDCS (AE) Indications: Pre operative exam, Evaluation of know aortic valve regurgitation Other Information Study Quality: Adequate Conclusion Normal left ventricular wall thickness and chamber size. Ejection fraction is 55 to 60%. Wall motion is normal Normal right ventricular size and function Both atria are normal in size There are no structural valvular abnormalities Trace aortic mitral and tricuspid regurgitation Estimated right ventricular systolic pressure is 22 mmHg Wall motion Left Ventricle The left ventricle is normal size. The left ventricular systolic function is normal. The left ventricular ejection fraction is within the normal range. There is normal left ventricular wall thickness. There is normal LV segmental wall motion. There is no ventricular septal defect visualized. LVEF is 56%. Right Ventricle The right ventricle is normal size. The right ventricular systolic function is normal. Atria The left atrium size is normal. The right atrium size is normal. The interatrial septum is intact with no evidence for an atrial septal defect. Aortic Valve The aortic valve is normal in structure. Aortic valve is trileaflet. There is no aortic valvular stenosis. Trace aortic regurgitation. Mitral Valve The mitral valve is normal in structure. No evidence of mitral valve stenosis. Trace mitral regurgitation. Tricuspid Valve The tricuspid valve is normal in structure. There is no tricuspid valve stenosis. Trace tricuspid regurgitation. The RVSP is 21.9 mmHg. Pulmonic Valve The pulmonary valve is normal in structure. There is no pulmonic valvular stenosis. There is no pulmonic valvular regurgitation. Great Vessels The aortic root is normal in size. The ascending aorta is normal in size. Aortic arch is not well visualized. IVC is normal in size and collapses >50% with inspiration. Pericardium There is no pericardial effusion. 2D Dimensions IVSD d PLAX 0.80 cm F: 0.6-1.0 Ao Root d 2.96 cm F: 2.7 - 3.3 LVPW d PLAX 0.80 cm F: 0.6 - 1.0 Ao Asc Diam d 3.16 cm F: 2.3 - 3.1 LVID d PLAX 4.60 cm F: 3.8 - 5.2 LVDs 3.30 cm F: 2.2 - 3.5 LV EF Teichholz 55.7 % FS 28.95 % LV EDV (Teich) 97.0 mL LV ESV (Teich) 43.0 mL M-Mode TAPSE 1.92 cm (M/F) >1.7 Auto EF LV EDV A4C 99.1 mL LV EDV A2C 76.0 mL LV EDV BP 90.5 mL LV ESV A4C 41.9 mL LV ESV A2C 33.8 mL LV ESV BP 38.1 mL LVEF(%) A4C 57.7 % LVEF(%) A2C 55.5 % LVEF(%) BP 57.9 % LV SV A4C 57.2 ml LV SV A2C 42.2 ml LV SV BP 52.4 ml LV CO A4C 3.6 L/min LV CO A2C 2.8 L/min LV CO BP 3.2 L/min HR A4C 62.50 BPM HR A2C 65.70 BPM LV EDV Index (BP) LA Volume LA Length A4C 4.4 cm LA Length A2C 4.5 cm LA Area A4C s 12.30 cm2 LA Area A2C s 14.31 cm2 LA Vol A4C A-L 29.39 mL LA Vol A2C A-L 38.36 mL LA Vol Biplane A-L 34.2 mL LA Vol/BSA A4C A-L LA Vol/BSA A2C A-L LA Vol/BSA BP A-L 19.1 mL/m2 LA Vol A4C MOD 28.3 mL LA Vol A2C MOD 36.0 mL LA Vol BP MOD 32.3 mL RA Volume RA Area A4C 11.3 cm2 RA ESV A4C (A-L) 28.1mL RA Vol/BSA A4C A-L RA Length A4C 3.9 cm RA ESV A4C (MOD) 26.3mL LV Diastology MV E' medial 0.067 (>0.07 m/s) MV E Vmax 0.62 (0.4-1.3 m/s) MV E/E' MED 9.29 (<14) MV A Vmax 0.75 (0.4-1.3 m/s) MV E' lateral 0.077 (>0.1 m/s) E/A Ratio 0.8 MV E/E' LAT 8.02 (<14) MV E' Average 0.072 m/s MV E/E'(average) 8.61 Aortic Valve AoV Vmax 1.50 m/s LVOT Vmax 0.94 m/s AoV Peak Grad 32.0 mmHg LVOT Peak Grad 3.6 mmHg AoV Area (Vmax) 1.74 cm2 LVOT VTI 0.202 m AoV VTI 0.281 m LVOT Mean Grad 2.2 mmHg AoV Mean Elkin. 0.88 m/s LVOT SV 55.94 mL AoV Mean Grad 3.8 mmHg LVOT Diam s 1.85 cm AoV Area (VTI) 1.99 cm2 AV Regurg Peak Gr. 9.04 mmHg Velocity Ratio 0.63 AR Decel Amelia 1.5m/sec2 AR DT 2556 msec AR PHT 741 msec AR Vmax 3.71 m/s Mitral Valve MV DT 193 (160-240 msec) MV Vmax TIPS 0.79 m/s MV Mean Grad 1.1 (<2mmHg) MV VTI 0.224 m Pulmonary Valve PV Vmax 0.81 (0.5-1.5 m/s) RVOT Vmax 0.71 m/s PV Peak Grad 2.6 mmHg RVOT Peak Gr. 2.0 mmHg PV Mean Elkin 0.57 m/s RVOT VTI 0.144 m PV Mean Grad 1.6 mmHg RVOT Mean Gr. 1.2 mmHg Tricuspid Valve RA Pressure 3.00 mmHg TR Vmax 2.18 m/s TV S' 0.13 m/s TR Peak Grad 18.9 mmHg RVSP (TR) 21.9 mmHg
== END 2025-02-08 03:30 ==
LOC: DI 03:10
PROVIDERS: PCP Nurse Practitioner Family; Visit Provider Nurse Practitioner Family
DX: I35.1 Nonrheumatic aortic (valve) insufficiency (principal)
CPT/HCPCS: 93306

== ENCOUNTER 2025-02-20 09:04 | Outpatient (CLI) | payer MEDICARE, SELFPAY ==
--- NOTE | 2025-02-20 09:00 | RT.EKG_ITS ---
APPROVED REPORT Exam: Resting ECG Reason for Exam: pre operative exam. Patient Location: O HR:61 bpm ECG Measurements Heart Rate 61 AXIS NC 153 P 23 QRSd 113 QRS 13 QT 421 T 89 QTc 424 Conclusion Sinus rhythm...normal P axis, V-rate 50- 99 Borderline intraventricular conduction delay...QRSd >112mS Nonspecific T abnormalities, lateral leads...T <-0.10mV, I aVL V5 V6
== END 2025-02-20 09:05 | disposition home or self-care (01) ==
LOC: DI.CM 09:05
PROVIDERS: PCP Nurse Practitioner Family; Visit Provider Nurse Practitioner Family
DX: R06.02 Shortness of breath (principal)
CPT/HCPCS: 93010

== ENCOUNTER → 2025-03-07 06:24 | Outpatient (CLI) | payer MEDICARE, SELFPAY ==
--- NOTE | 2025-03-07 07:45 | DI.DEXA_ITS ---
Exam(s) XR DEXA BONE DENSITY W/WO MARIA LUISA EXAM: XR DEXA BONE DENSITY W/WO MARIA LUISA CLINICAL HISTORY: osteopenia, POST MENOPAUSAL STATUS, ASYMPTOMATIC MENOPAUSAL STATE, Z78.0 TECHNIQUE: Holo[employer] Horizon C densitometer analysis of left hip, lumbar spine and left forearm. Lateral survey image of the thoracic and lumbar spine. COMPARISON: DX XR DEXA BONE DENSITY W/WO MARIA LUISA from 07/18/2018 CR XR DEXA BONE DENSITY W/WO MARIA LUISA from 06/07/2022 CR XR LUMBAR SPINE COMPLETE from 03/07/2025 FINDINGS: Lateral view of the thoracic and lumbar spine shows no evidence of compression fractures. Bone mineral density measurements of the lumbar spine correspond to a total T- score of -0.9, in the normal range. This is unchanged from 2022 but represents a 3.4 present increase from 2019. Bone mineral density measurements of the left hip correspond to a total T-score of -0.4. This is not significantly changed from the prior exams.. The femoral neck T-score is -0.8, in the normal range.. Theleft forearm bone mineral density measurements correspond to a T-score of the distal 3rd of -0.1, in the normal range. This is not significantly changed from the prior exams.. IMPRESSION: Normal bone density of the spine, hip and forearm.
--- NOTE | 2025-03-07 07:45 | DI.RAD_ITS ---
Exam(s) XR LUMBAR SPINE COMPLETE EXAM: XR LUMBAR SPINE COMPLETE CLINICAL HISTORY: back pain, L LUMBAR RADICULOPATHY M54.16. TECHNIQUE: 2D digital imaging was performed. COMPARISON: CR XR DEXA BONE DENSITY W/WO MARIA LUISA from 06/07/2022 FINDINGS: Five views No evidence of fracture. However, there is some degenerative anterolisthesis of L4 upon L5 related to facet arthropathy with approximately 7 millimeters anterior slippage L4 upon L5 but only minimal narrowing of the disc space at this level. The other disc spaces exhibit normal height although there is slight anterior osseous lipping at L2-3 level indicating element of degenerative disc disease. There is facet arthropathy at the lower 2 levels. Sacroiliac joints appear age- appropriate. No scoliosis. No osseous lesions. IMPRESSION: Grade 1 degenerative anterolisthesis of L4 upon L5 as described above. Other findings as above. DATA REPOSITORY: RADIATION DOSE DELIVERED:
--- NOTE | 2025-03-07 08:30 | DI.CTLCSR_ITS ---
Exam(s) CT CHEST LUNG CANCER SCREEN EXAM: CT CHEST LUNG CANCER SCREEN CLINICAL HISTORY: Screening for lung cancer, FORMER [employer] S[employer] Z87.891. TECHNIQUE: Imaging Protocol: Low Dose Technique CONTRAST MATERIAL: None COMPARISON: CT CT CHEST LUNG CANCER SCREEN from 03/06/2024 FINDINGS: CHEST: LUNGS: There are few tiny bilateral benign calcified granulomas in both lung maza again noted. There are no ominous pulmonary nodules. There are no confluent infiltrates. No pleural effusions. MEDIASTINUM: There is no obvious hilar nor mediastinal adenopathy. CARDIAC: Heart size is normal. There is no pericardial effusion.Caliber of the thoracic aorta is within normal limits. OTHER: No adrenal masses. No ascites OSSEOUS: No significant osseous lesions.No fractures.. IMPRESSION: 1. No significant pulmonary nodules. 2. No infiltrates nor pleural effusions nor intrathoracic adenopathy. 3. Lung RADS Cat 1 - Negative: No nodules and definitely benign nodules Lung-RADS 1.0 CATEGORIES: Category 0 - Prior chest CT exam(s) being located for comparison. Category 1 - Annual screening in 12 months. No nodules or definitely benign nodules. Category 2 - Annual screening in 12 months. Benign appearance. Nodules with low likelihood of becoming active cancer. Category 3 - 6-month follow-up. Probably benign. Short-term follow-up suggested. Nodules with low likelihood of becoming active cancer. Category 4A - 3-month follow-up and CT/PET if >8 mm in size. Suspicious finding. Findings which require additional testing. Category 4B - Findings which require additional testing and tissue sampling. Category 4X - Category 3 or 4 nodules with additional features or imaging findings that increases the suspicion of malignancy. Modifier S- Potentially clinically significant findings (non lung cancer) RADIATION DOSE DELIVERED: 26.99mGy.cm Total DLP DATA REPOSITORY: All CT scans at this facility are submitted to the National Radiology Data Registry (NRDR) Dose Index Registry (DIR) with the [employer] (A[employer]). RADIATION OPTIMIZATION: All CT scans at this facility use at least one of these dose optimization techniques: automated exposure control; mA and/or kV adjustment per patient size (includes targeted exams where dose is matched to clinical indication); or iterative reconstruction.
== END ==
LOC: DI 06:24
PROVIDERS: PCP Nurse Practitioner Family; Visit Provider Nurse Practitioner Family
DX: M54.16 Radiculopathy, lumbar region (principal); Z78.0 Asymptomatic menopausal state; Z87.891 Personal history of nicotine dependence
CPT/HCPCS: 71271; 77080; 72110

== ENCOUNTER 2025-03-19 15:25 | Outpatient (CLI) | payer MEDICARE, SELFPAY ==
--- NOTE | 2025-03-19 14:16 | DI.RAD_ITS ---
Exam(s) XR KNEE LT 1V XR STANDING ALIGNMENT EXAM: XR STANDING ALIGNMENT and XR knee LT 1 V CLINICAL HISTORY: OA LEFT KNEE. TECHNIQUE: 2D digital imaging was performed. Five images were obtained. COMPARISON: CR LEFT KNEE COMPLETE from 07/25/2007 CR RIGHT KNEE 3 VIEWS from 12/21/2013 CR XR KNEE LT 3V AP,LAT,DUYEN from 08/21/2024 CR XR HIP LT COMPLETE AP PELVIS from 01/21/2025 FINDINGS: BONES: The hips are well maintained. The right knee is unremarkable. There are moderate degenerative changes in the left knee characterized by joint space narrowing and osteophytes. The findings are most marked in the medial femoral tibial joint. There is an enthesophyte at the superior patella. There is no significant joint effusion. There is chondrocalcinosis noted in the lateral femoral tibial joint. The ankles are well maintained.There is no significant leg length discrepancy. SOFT TISSUE: Normal. IMPRESSION: Moderate degenerative changes seen in the left knee. DATA REPOSITORY: RADIATION DOSE DELIVERED:
== END 2025-03-19 15:26 | disposition home or self-care (01) ==
LOC: DIORS 15:25
PROVIDERS: PCP Nurse Practitioner Family; Visit Provider Physician Assistant
DX: Z01.818 Encounter for other preprocedural examination (principal); M17.12 Unilateral primary osteoarthritis, left knee; Z79.85 Long-term (current) use of injectable non-insulin antidiabetic drugs
CPT/HCPCS: 99024; 36416; 83036; 73560; 77073

== ENCOUNTER 2025-03-19 20:11 | Outpatient (REF) | payer MEDICARE, SELFPAY ==
[2025-03-19 16:56] LABS: HCT 38.0 % (36.0-46.0); HGB 12.5 g/dL (11.2-15.7); MCH 29.5 pg (27.0-33.0); MCHC 32.9 % (32.0-36.0); MCV 90 fL (80-95); MPV 9.8 fL (8.0-11.0); Platelet Count 269 10^3/uL (130-400); RBC 4.24 10^6/uL (3.93-5.22); RDW 12.4 % (11.7-14.6); RDW-SD 40.3 fL; WBC 5.44 10^3/uL (4.4-10.8)
[2025-03-19 17:13] LABS: Anion Gap 8.2 mmol/L (3-11); BUN 13 mg/dL (9-23); CO2 30.8 mmol/L (20.0-31.0); Calcium 8.4 mg/dL (8.3-10.6); Chloride 104 mmol/L (98-107); Glucose 218 mg/dL (74-106); Potassium 4.2 mmol/L (3.5-5.1); Sodium 143 mmol/L (136-145)
[2025-03-19 17:19] LABS: Hemoglobin A1C 6.2 % (<5.7)
== END 2025-03-19 20:12 | disposition home or self-care (01) ==
LOC: LBN 20:11
PROVIDERS: PCP Nurse Practitioner Family; Visit Provider Student in an Organized Health Care Education/Training Program
DX: Z01.818 Encounter for other preprocedural examination (principal); E11.40 Type 2 diabetes mellitus with diabetic neuropathy, unspecified; M17.12 Unilateral primary osteoarthritis, left knee
CPT/HCPCS: 80048; 85027; 83036

== ENCOUNTER 2025-03-20 15:04 | Outpatient (CLI) | payer MEDICARE, SELFPAY | END 2025-03-20 15:05 | disposition home or self-care (01) | LOC: LBO 15:10 | PROVIDERS: PCP Nurse Practitioner Family; Visit Provider Physician Assistant | DX: E11.9 Type 2 diabetes mellitus without complications (principal) | CPT/HCPCS: 36415; 82985 ==

== ENCOUNTER 2025-04-02 07:12 | Observation (INO) | payer MEDICARE, SELFPAY ==
[2025-04-02] VITALS (58 sets, daily range): BP systolic 98–160; BP diastolic 35–78; PULSE 0–78; RESP 8–22; TEMP 36.1–36.9; O2SAT 87–98; BMI 31.8
--- NOTE | 2025-04-02 07:14 | PDOC.DSDIS_ITS ---
Date of service: 04/02/25 Discharge Plan Disposition Patient Disposition: Home Condition: Good Discharge Details Reason For Visit: Left knee DJD Attending Provider: Fernando Massey Primary Care Provider: Etelvina Villela Meds and New Rx's Prescriptions: New acetaminophen 500 mg tablet 1,000 mg PO Q8H PRN Qty: 90 0RF Rx Instructions: Take two tablets up to every 8 hours as needed for pain celecoxib [Celebrex] 200 mg capsule 200 mg PO BID PRNQty: 60 0RF Rx Instructions: Take one tablet twice daily for pain and inflammation docusate sodium [Colace] 100 mg capsule 100 mg PO BID Qty: 28 0RF pantoprazole 40 mg tablet,delayed release (DR/EC) 40 mg PO DAILY Qty: 14 0RF Rx Instructions: Take one tablet once daily dexamethasone 4 mg tablet 4 mg PO DAILY Qty: 2 0RF Rx Instructions: Take one tablet once daily for two days oxycodone 5 mg tablet 5 mg PO Q4H PRNQty: 18 0RF Rx Instructions: Take one tablet up to every 4 hours as needed for severe postoperative pain Continued (DME) blood-glucose meter [Five DeltaTouch Ultra2 Meter] Mis See Rx Instructions .ROUTE .MEDSUPPLY Qty: 1 4RF Patient Comments: pt. reports she took last time yesterday, usual range is 120-140 Rx Instructions: Check blood sugar twice a day albuterol sulfate 90 mcg/actuation HFA aerosol inhaler 2 puff inhalation Q6H PRN (Reason: shortness of breath or wheezing) Qty: 8.5 0RF levothyroxine 100 mcg tablet 100 mcg PO DAILY Qty: 90 3RF (DME) lancets [OneTouch Delica Plus Lancet] 33 gauge misc See Rx Instructions .Route Qty: 200 3RF Rx Instructions: Check blood sugar twice a day duloxetine [Cymbalta] 60 mg capsule,delayed release(DR/EC) 60 mg PO DAILY Qty: 90 3RF carbamazepine 200 mg tablet 200 mg PO BID Qty: 180 3RF (DME) OneTouch Ultra Test Strip 1 ea Miscellaneous DAILY Qty: 200 4RF Rx Instructions: Check blood sugar twice a day trazodone 50 mg tablet 50 mg PO DAILY PRN (Reason: insomnia) Qty: 90 3RF cyclobenzaprine 5 mg tablet 5 - 10 mg PO TID PRN (Reason: muscle spasm) Qty: 60 1RF Rx Instructions: Take 1-2 tablet by mouth three times a day as needed for back pain vitamin B complex 1 EACH capsule 1 cap PO DAILY cinnamon bark 500 MG capsule 1 cap PO BID cholecalciferol (vitamin D3) 50 mcg (2,000 unit) capsule 2,000 unit PO DAILY Qty: 90 3RF Rx Instructions: Take 1 capsule once a day tirzepatide 7.5 mg/0.5 mL pen injector 7.5 mg subcut QWEEK Qty: 6 3RF aspirin [Aspirin Low-Strength] 81 MG tablet,chewable 81 mg PO DAILY Discharge Instructions Additional Instructions: Total Knee Discharge Instructions Activity: The most important activity is to walk and to work on gentle motion (both flexion and extension). You should try to take short walks a few times a day. It is important that when resting you work on keeping the knee straight. Avoid putting a pillow behind the knee as this will encourage flexion. Work on range of motion exercises as provided by Physical Therapy. - Start outpatient physical therapy within 2 weeks. - You should wear the MOISÉS hose on both legs for 2 weeks. You may remove these at night. You may also use any compression sock in place of the MOISÉS hose. - Utilize [employer] to review exercises, see videos on exercises and obtain basic information pertaining to your surgery and your recovery. Dressing: Remove the Sameer wrap by 2 days after your surgery and put on the MOISÉS stocking given to you from the hospital. Keep the surgical dressing (underneath the SAMEER wrap) in place for at least one week. After the first week it may be removed and replaced with light gauze and tape or nothing. The wound and dressing may get wet after 3 days but avoid soaking the dressing or otherwise it will need to be changed. Many people prefer covering the dressing with cling wrap (saran wrap) to minimize it from getting soaked. If it gets wet, just pat dry. If it starts to peel off then it will need to be changed. Medications: - You should take Tylenol and anti-inflammatory Celebrex as your primary pain control medications. If the Celebrex is too expensive or not covered, please call the office for another alternative (Advil/Ibuprofen or Naproxen/Aleve) - You have been prescribed a stronger pain medication Oxycodone for breakthrough pain, take as needed as prescribed. - You have also been prescribed a stomach acid reduction agent Pantoprozole to help reduce stomach acid and reflux. - At your request Gabapentin was not sent in. If you have increased nighttime nerve pain and restlessness please contact office for prescription. - You will be taking Aspirin 81mg twice a day for DVT prevention. You reported having Aspirin at home and did not want a prescription. If you need a prescription please contact office. - You have also been prescribed Decadron to take to control post-operative nausea and pain. You will start this tomorrow. - If you have constipation you should take Colace (which has been prescribed) or Miralax (which is available [id number]). It takes most people 3-4 days to have a bowel movement. Follow-up: 2 weeks If you have any acute concerns or questions, please do not hesitate to contact the office at [phone]. You may contact Dr. Massey with any questions after hours through the hospital at [phone] or on his cell phone at [phone]. Stand Alone Forms: Anesthesia Discharge Inst., Anes.Nerve Block Instructions, Katelyn Marc (DSU), Portal Information Referrals: Fernando Massey MD [ [facility] STAFF PHYSICIAN, Orthopaedic Surgical] - 04/15/25 11:00 am Equipment/Supplies: Walker Activity:: Elevate Remove Dressings/Wound Care:: Do Not Remove Shower/Bathe:: Cover Diet:: As Tolerated Discharge Orders Discharge Orders: Discharge Order (Routine); Ordered 04/02/25 Ordered By: Ashley Stallings
--- NOTE | 2025-04-02 08:47 | W.ANESPRE ---
General Info Date of Service Date Performed: 04/02/25 Height: 5 ft 2.75 in Weight: 80.9 kg Body Mass Index (BMI): 31.8 Surgical Procedure: Operation Date: 04/02/25 10:40 Proposed Procedure Side Surgeon p Knee Total Arthroplasty Left Fernando Massey MD Meds Allergies and Home Medications Allergies Allergy/AdvReac Type Severity Reaction Status Date / Time Penicillins Allergy Severe Anaphylaxsi Verified 04/02/25 08:35 s shellfish derived Allergy Severe Anaphylaxis Verified 04/02/25 08:35 mushroom Allergy Intermediate Hives Verified 04/02/25 08:35 zonisamide Allergy Intermediate Generalized Verified 04/02/25 08:35 rash empagliflozin (From AdvReac Intermediate Yeast Verified 04/02/25 08:35 Jardiance) infections ibuprofen AdvReac Intermediate Rectal Verified 04/02/25 08:35 bleeding prednisone AdvReac Intermediate lucid Verified 04/02/25 08:35 dreams simvastatin AdvReac Intermediate Myalgias Verified 04/02/25 08:35 sulfamerazine AdvReac Intermediate Myalgias Verified 04/02/25 08:35 Home Medication ?Medication ?Instructions ?Recorded vitamin B complex 1 cap PO DAILY 07/06/12 cinnamon bark 500 mg capsule 1 cap PO BID 07/07/12 aspirin 81 mg chewable tablet 81 mg PO DAILY 12/21/13 (Aspirin Low-Strength) blood-glucose meter (OneTouch #1 ea 02/09/21 Ultra2 Meter) albuterol sulfate 90 mcg/actuation 2 puff inhalation Q6H PRN 10/04/23 aerosol inhaler shortness of breath or wheezing #8.5 grams cholecalciferol (vitamin D3) 50 2,000 unit PO DAILY #90 caps 03/06/24 mcg (2,000 unit) capsule blood sugar diagnostic (OneTouch #200 ea 08/17/24 Ultra Test strips) carbamazepine 200 mg tablet 200 mg PO BID #180 tab-caps 08/17/24 duloxetine 60 mg capsule,delayed 60 mg PO DAILY #90 caps 08/17/24 release (Cymbalta) lancets 33 gauge (OneTouch Delica #200 ea 08/17/24 Plus Lancet) levothyroxine 100 mcg tablet 100 mcg PO DAILY #90 tabs 08/17/24 trazodone 50 mg tablet 50 mg PO DAILY PRN insomnia #90 05/02/25 tabs tirzepatide 7.5 mg/0.5 mL 7.5 mg (0.5 mL) subcut QWEEK #6 mL 01/14/25 subcutaneous pen injector cyclobenzaprine 5 mg tablet 5 - 10 mg (1 - 2 x 5 mg) PO TID 02/20/25 PRN muscle spasm #60 tabs acetaminophen 500 mg tablet 1,000 mg (2 x 500 mg) PO Q8H PRN 04/02/25 pain #90 tabs celecoxib 200 mg capsule (Celebrex) 200 mg PO BID PRN #60 caps 04/02/25 dexamethasone 4 mg tablet 4 mg PO DAILY #2 tabs 04/02/25 docusate sodium 100 mg capsule 100 mg PO BID #28 caps 04/02/25 (Colace) oxycodone 5 mg tablet 5 mg PO Q4H PRN #18 tabs 04/02/25 pantoprazole 40 mg tablet,delayed 40 mg PO DAILY #14 tabs 04/02/25 release Current Visit Medications: Current Medications Generic Name Dose Route Start Last Admin Trade Name Freq PRN Reason Stop Dose Admin Acetaminophen 1,000 mg 04/02/25 06:00 Acetaminophen 500 Mg Tab PO 04/02/25 23:59 PREOP JON Celecoxib 400 mg 04/02/25 06:00 Celecoxib 200 Mg Cap PO 04/02/25 23:59 PREOP JON Gabapentin 300 mg 04/02/25 06:00 Gabapentin 300 Mg Cap PO 04/02/25 23:59 PREOP JON Hydromorphone HCl 0.5 mg 04/02/25 07:11 Hydromorphone 2 Mg/Ml Syr IVP 05/02/25 07:10 Q2H PRN PRN Ringer's Solution 1,000 mls @ 80 mls/hr 04/02/25 06:00 IV 04/02/25 23:59 INFUSION JON Cefazolin Sodium/Dextrose 2 gm in 50 mls @ 100 mls/hr 04/02/25 06:00 Ancef Duplex IVPB 04/02/25 23:59 PREOP JON Tranexamic Acid/Sodium Chloride 1,000 mg in 100 mls @ 600 mls/hr 04/02/25 06:00 IVPB 04/02/25 23:59 PREOP JON Cefazolin Sodium/Dextrose 1 gm in 50 mls @ 100 mls/hr 04/02/25 08:00 Ancef Duplex IVPB 04/03/25 00:29 Q8H JON Oxycodone HCl 0 mg 04/02/25 07:11 Oxycodone 5 Mg Tab PO 05/02/25 07:10 Q3H PRN PRN Pain Sodium Chloride 0 ml 04/02/25 06:00 Normal Saline Flush 10 Ml Syr IV 04/02/25 23:59 PRN PRN Sodium Chloride 0 ml 04/02/25 06:00 Normal Saline 10 Ml Vial IJ 04/02/25 23:59 DIRECTED PRN Sterile Water 0 ml 04/02/25 06:00 Water,Injection,Sterile 10 Ml Vial IJ 04/02/25 23:59 DIRECTED PRN Tranexamic Acid 1,300 mg 04/02/25 07:11 Tranexamic Acid 650 Mg Tab PO 05/02/25 07:10 ONCE PRN postoperative PFSH Active Problems Active Problems: Problem Status Onset Code Ganglion of left knee Chronic 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 Arthritis of knee, left Chronic M17.12 Type 2 diabetes mellitus with diabetic neuropathy Chronic E11.40 Hyperlipidemia Chronic E78.5 Hypothyroidism Chronic E03.9 Aortic valve regurgitation Chronic I35.1 Major depressive disorder, recurrent Chronic F33.9 Generalized anxiety disorder Chronic F41.1 Migraine headache Chronic G43.909 Primary fibromyalgia syndrome Chronic M79.7 PTSD (post-traumatic stress disorder) Chronic F43.10 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 Right 02/25/14. H/O bilateral oophorectomy (~02/2004) S/P AARON (total abdominal hysterectomy) (~1993) for endometriosis S/P left knee arthroscopy x 4, 1989, 1993 (+meniscus repair), 2003, 2009 S/P partial thyroidectomy (~2002) for benign follicular adenoma; right lobectomy Tobacco Smoking/Tobacco Use Status: Former Tobacco Use Passive smoking exposure: Yes Second hand exposure: Yes Alcohol Alcohol Intake: former Substance Use Substance use: Current Sobriety Substance use type: marijuana Details: alcohol: t-30 Prental History History 4 Para Hx # Term Pregnancies 2 Multiple births Hx # Pregnancies Ectopic pregnancies AB induced Hx Number of Living Children 2 AB spontaneous 2 Vital Signs and Lab Results Vital Signs Most Recent Vital Signs in EMR: Most Recent Vital Signs Temp Pulse Resp BP Pulse Ox 36.5 C 65 16 143/67 H 98 04/02/25 08:20 04/02/25 08:20 04/02/25 08:20 04/02/25 08:20 04/02/25 08:20 Point of Care Results Point of Care Results: Finger Stick Blood Glucose 154 04/02/25 08:42 Lab Results Complete Blood Count: WBC, (4.4-10.8) 5.44 10^3/uL 03/19/25, 14:20 RBC, (3.93-5.22) 4.24 10^6/uL 03/19/25, 14:20 Hgb, (11.2-15.7) 12.5 g/dL 03/19/25, 14:20 Hct, (36.0-46.0) 38.0 % 03/19/25, 14:20 Plt Count, (130-400) 269 10^3/uL 03/19/25, 14:20 Complete Metabolic Panel: Sodium, (136-145) 143 mmol/L 03/19/25, 14:20 Potassium, (3.5-5.1) 4.2 mmol/L 03/19/25, 14:20 Chloride, (98-107) 104 mmol/L 03/19/25, 14:20 Carbon Dioxide, (20.0-31.0) 30.8 mmol/L 03/19/25, 14:20 BUN, (9-23) 13 mg/dL 03/19/25, 14:20 Creatinine, (0.55-1.02) 0.72 mg/dL 03/19/25, 14:20 Est GFR (CKD-EPI 2020), (mL/min/1.73m2) 81.97 03/19/25, 14:20 Calcium, (8.3-10.6) 8.4 mg/dL 03/19/25, 14:20 Glucose, (74-106) 218 mg/dL H 03/19/25, 14:20 Hemoglobin A1c, (<5.7) 6.2 % H 03/19/25, 14:20 Imaging and Studies Imaging and Studies Study information below may be from another EMR and interpreted by another provider. Please see original notes in EMR for more complete details. EKG Summary: 02/20/25 Conclusion Sinus rhythm...normal P axis, V-rate 50- 99 Borderline intraventricular conduction delay...QRSd >112mS Nonspecific T abnormalities, lateral leads...T <-0.10mV, I aVL V5 V6 Stress Test Summary: STRESS TEST PATIENT NAME: Shantal Dickerson UNIT #: [id number] ORDERING PROVIDER: Barb Ferrara NP PRIMARY CARE [facility] DATE/TIME OF SERVICE: 11/19/21 ADMITTING PROVIDER: TO RODRIGUEZ MD : 1960 APPROVED REPORT Exam: Exercise Treadmill Patient Location: Out-Patient Room/Bed: Stress Nurse: Adriana Monreal RN Ordering Provider:BARB FERRARA, Contact Number: [phone] BMI: 33.83 Baseline Rhythm: Sinus Rhythm Indications: Chest pain. Chest discomfort. Medical History Medical History: DM II. Peripheral neuropathy. HLD. Hypothyroidism. PTSD. Depression. Primary fibromyalgia syndrome. Cardiac Medications: Aspirin. Pravastatin. Metformin. Jardiance. Allergies: PCN. Mushroom. Zonisamide. Shellfish. Prednisone. Ibuprofen. Simvastatin. Sulfamerazine. Cardiac Risk Factors: Diabetes. Former smoker. HLD. Obesity. Previous Cardiac Procedures: None Pretest Chest Pain Characteristics: Non-exertional Chest pain Exercise History: Indeterminate Physical Disabilities: None Lung Sounds: Clear to auscultation. Heart Sounds: Regular Stress Test Details Test: Exercise stress testing was performed using a Bernardino protocol. Rest Stress HR Resting HR Supine: 71 bpmMax Heart Rate (APMHR): 161 bpm Resting HR Standin bpmTarget HR (85% APMHR): 136 bpm Max HR Achieved: 140 bpm % of APMHR: 86 Recovery HR: 91 bpm HR response to stress: Normal HR response to stress BP Resting BP Supine: 148/70 mmHg Resting BP Standin/68 mmHg Max BP: 180/68 mmHg Recovery BP: 146/70 mmHg BP response to stress: Normal blood pressure response to stress. ECG Resting ECG: Sinus Rhythm Ectopy: None Stress ECG: Sinus Tachycardia ST Change: No significant ST segment changes noted Arrhythmia: None Recovery ECG: Sinus Rhythm Recovery ST Change: No significant ST segment changes noted Recovery Arrhythmia: None Clinical Reason for Termination: Dyspnea, Fatigue Stress Symptoms: Dyspnea, Leg Fatigue Exercise duration: 6 min26 sec Highest Stage Reached: Stage 3: 3.4 mph at 14% grade. Exercise capacity: 7.72 METs Scale: Sedentary Angina Score: Non-Limiting Rate Pressure Product: [id number] Stress ECG Conclusion 1. Electrocardiogram showed minor ST abnormalities 2. Patient exercised on the Bernardino protocol and completed a workload of 7.72 METS, stopping due to fatigue 3. Normal heart rate and blood pressure response to exercise. Patient achieved 86% of predicted heart rate for age 4. There was no electrocardiographic evidence of myocardial ischemia 5. There were no dysrhythmias Stress Test Summary STAGETime (mins)Speed (mph)Grade (%)[id number] [id number]/705/10 left lateral chest pain. [id number]/68 [id number]/78Chest pain symptoms subsided.4.5 [id number] 393.414SOB. Leg fatigue.10 1 min [id number]/68 3 min [id number]/70 6 min [id number]/702/10 chest pain. Dictated by: MICHAEL SLATER,TO IVEY Dictated:: 11/19/21 1003 <Electronically signed by To Rodriguez M.D. in [place]> 11/19/21 1019 Transcribed Date: Transcribed Time: By: MARGARITA This is privileged, confidential information, intended only for the provider named. Any use or distrib Echocardiogram Summary: 02/08/25 Conclusion Normal left ventricular wall thickness and chamber size. Ejection fraction is 55 to 60%. Wall motion is normal Normal right ventricular size and function Both atria are normal in size There are no structural valvular abnormalities Trace aortic mitral and tricuspid regurgitation Estimated right ventricular systolic pressure is 22 mmHg Pulmonary Function Summary: Pulmonary Function Test PATIENT NAME: Shantal Dickerson UNIT #: [id number] ADMITTING PROVIDER: Beata Saucedo M.D. PRIMARY CARE PROVIDER: LG MURPHY NP DATE OF ADMIT: 03/01/24 : 1960 Date of service: 03/01/24 Time of Service: 10:02 Pulmonary Function Test Result Indications: Dysonea on exertion Interpretation Spirometry: There is no airflow limitation. No bronchodilator response. Inspiratory and expiratory blunting on flow volume loop. Lung Volumes: Normal lung volumes Diffusion Capacity: Normal diffusion Airway Pressure: Normal airways resistance Impression Normal pulmonary function testing. The inspiratory and expiratory loop blunting is of unclear significance. Not clearing a fixed obstruction but could consider neck and chest imaging for further assessment if clinically appropriate. Clinical Correlation therefore is recommended. Anesthesia Assessment and Plan Anesthesia History Personal History: Other (canxwake up combative) Family History: No Family History of Anesthesia Complications Exercise Tolerance Exercise Tolerance: Metabolic Equivalents>4 Pertinent Negatives Pertinent Negatives: No Symptoms of GERD Cardiac & Pulmonary Exam Cardiac Exam: Normal S1/S2 Heart Sounds Pulmonary Exam: Clear Bilateral Breath Sounds Implantable Cardiac Device Does patient have a Pacemaker or an ICD?: No Airway Exam Known Difficult Airway: No Mallampati Class: 2 Mouth Opening: Narrow (< 3cm) Thyromental Distance: Less than 3 cm Neck Range of Motion: Full ROM Neck Circumference: Thick Teeth Condition: Normal Dentition ASA Classification ASA Score: ASA 2 Emergency Case?: No NPO Status NPO Status: NPO Clears >2 hours, Solids >8 hours Anesthesia Plan Resuscitation Status: Full Code Anesthesia Technique: General Anesthesia Airway Planned: Endotracheal Tube Pain Management: Surgeon and patient request nerve block Monitors Used: Standard Monitors Preoperative Comments:: Pt. states she has neuropathy from hips to toes and also has degenerative spine causing periodic shooting discomfort into her legs.
[2025-04-02] MEDS: Lactated Ringers 1,000 ML 80 ML IV (08:50)
[2025-04-02] MEDS: Gabapentin 300 MG CAP PO (08:50)
[2025-04-02] MEDS: Celecoxib 200 MG CAP 400 MG PO (08:50)
[2025-04-02] MEDS: Acetaminophen 500 MG TAB 1000 MG PO ×2 (08:50→19:52)
--- NOTE | 2025-04-02 10:03 | W.ANESNERVE ---
Nerve Block Single Injection Procedure Date and Time Date Performed: 04/02/25 Procedure Start: 09:44 Location Where Procedure Performed Procedure Location: Day Surgery Unit Reason Performed: Postoperative Analgesia Requesting Provider: Fernando Massey Timeout Performed Timeout Performed: Yes Monitoring Used ECG, Blood Pressure, SpO2 and See EMR for corresponding vital signs Sterility Sterility: Hand Hygiene, Surgical Cap, Surgical Mask, Sterile Gloves and Chlorhexidine Sedation Given During Procedure Sedation Given (Indicate Dose Given): Versed IV Dose:: 2mg Patient Mental Status Patient Mental Status: Sedate with meaningful communication Nerve Block 1st Nerve Block: Laterality: Left Block Type: Adductor Canal Ultrasound Image Saved?: Yes Needle / Catheter Used: 100mm SonoPlex II Local Anesthetic Bolus (Indicate Dose Given): Lidocaine used for local infiltration of skin, Injected in 3-5ml increments after negative blood aspiration, Bupivacaine 0.25% Dose:: 10ml and Exparel Dose:: 10ml Additives (Indicate Dose Given): None Ultrasound: Sterile probe cover and gel used Nerve Stimulator: Supplement to Ultrasound use and No twitch or parasthesia noted < 0.5 mA Paresthesia: None Procedure Tolerated: No Complications and Patient tolerated well Procedure Outcome: Successful Performed By: Acosta Wang
[2025-04-02] MEDS: ceFAZolin 2 GM/50 ML BAG IVPB (10:27)
[2025-04-02] MEDS: TRANEXAMIC ACID/SOD. CHL. 1,000 MG/100 ML BAG 600 MG IVPB (10:40)
[2025-04-02] MEDS: ROPIvacaine/EPI/CLONIDINE/KET 50 ML SYRINGE IJ (10:59)
[2025-04-02] MEDS: HYDROmorphone 2 MG/ML SYR IVP ×3 (12:17→12:45)
--- NOTE | 2025-04-02 12:50 | W.ANESPOSTOP ---
Postoperative Evaluation Date, Time and Location Date Performed: 04/02/25 Time Performed: 12:42 Patient Location: PACU Vital Signs Most Recent Imported Vital Signs: Most Recent Vital Signs Temp Pulse Resp BP Pulse Ox 36.2 C L 72 15 103/77 93 04/02/25 12:10 04/02/25 09:43 04/02/25 09:43 04/02/25 09:43 04/02/25 09:43 Pain Score Most Recent Pain Score: Most Recent Pain Score Pain Level 8 04/02/25 12:25 Assessment Mental Status: Awake (Alert & Oriented to Patient Baseline) Airway and Respiratory Function: Patent airway with normal (patient baseline) respiratory exam Cardiovascular Function: Hemodynamically Stable Hydration Status: Adequately Hydrated Nausea & Vomiting: No Nausea or Vomiting Pain: Pain is Moderate or Severe Postoperative Pain Management: Pain being addressed with medication Peripheral Nerve Block: Regional nerve block not resolved at time of post operative discharge
[2025-04-02] MEDS: Albuterol 2.5 MG/3 ML INH SOLN VIAL UPD (13:46)
[2025-04-02] MEDS: Naloxone 0.4 MG/ML VIAL IVP ×2 (14:25→14:35)
--- NOTE | 2025-04-02 15:13 | W.PM.OP ---
Operative Note Operative Note PRE-OP DIAGNOSIS: Left Knee Osteoarthritis POST-OP DIAGNOSIS: same PROCEDURE: Left Total Knee Replacement SURGEON: Fernando Massey BURGLAR ALARM SUPERINTENDENT: Ashley Stallings ANESTHESIA TYPE: General LMA/ETT Refer to Anesthesia Record ESTIMATED BLOOD LOSS: 100 PATHOLOGY: none sent TOURNIQUET TIME: 0 COMPLICATIONS: None Patient was transported to: PACU Patient's condition: stable Implants: 1. Depuy Attune Cementless Cruciate Retaining Femoral Component, Size 4 2. Depuy Attune Cementless Fixed Bearing Tibial Component, Size 3 3. Depuy Attune 4x6mm CR/FB Poly 4. Depuy Attune Patellar Component, Size 32mm Indications: I have seen Shantal in clinic for symptoms of knee arthritis, confirmed with radiographic findings. She has exhausted nonoperative methods and was having significant limitations in daily function and desired better function and less pain. I discussed the technical details of a knee replacement. I explained the risks of the procedure to include, but not limited to, bleeding, infection, pain, stiffness, fracture, damage to nerves and vessels, damage to muscles and tendons, loosening, need for repeat procedure, blood clot and cardiopulmonary demise. Despite these risks, Shantal elected to proceed. Findings: There was arthritic change within the medial compartment and the patellofemoral compartment. Procedure Description: Shantal was greeted in the preoperative holding area where the correct side was identified and marked. The consent was reviewed with the patient and signed. The history and physical was updated. All questions were answered. Preoperative medications were administered: Acetaminophen 1000mg, Celebrex 400mg, and Gabapentin 300mg. An adductor canal block was then administered by the anesthesia team in the DSU. She was taken back to the operating room. A general anesthestic was then administered. The patient was placed into the supine position on the operating room table. Posts were placed for positioning during the procedure. All bony prominences were well padded. Prophylactic antibiotics in the form of Cefazolin were administered. 1g of Tranxemic Acid was given intravenously within 30 minutes of incision. The left leg was then prepped with Chloraprep and draped in a standard fashion with impervious stockinette. A second prep with Chloraprep was performed prior to application of Iodine impregnated skin protection. A timeout to confirm correct identity, side and site, procedure, allergies, anesthesia, and medical concerns was performed. With the knee in some flexion, a midline incision was made overlying the knee. Full thickness skin flaps were raised once the extensor mechanism was encountered. These were raised medially and laterally. Any bleeding was controlled with electrocautery. Once the extensor mechanism was fully exposed, a medial parapatellar arthrotomy was performed in a flexed position. All bleeding from the arthrotomy and the geniculate arteries was coagulated. A medial subperiosteal peel was performed with electrocautery to the midcoronal plane. The fat pad was removed while keeping the patellar tendon protected. The anterior distal femur synovium was removed for later visualization. The ACL and PCL were resected and the anterior horn of the lateral meniscus was transected. The knee was then flexed with the patella everted. Using a step drill, and based on preoperative templating, the femoral canal was entered. This was done with a step drill without any difficulty. The intramedullary distal femoral cut guide was inserted, set to a 5 degree valgus cut and 9mm cut thickness. The distal femoral cut guide was then held in position and pinned. With the soft tissues protected, the distal cut was performed. This was passed over a few times to ensure a planar cut. I then turned attention to the tibia. The extramedullary guide was placed onto the leg. The distal aspect was slid medial to adjust for position of center of ankle and stay in line with shaft of the tibia. Approximately 5 degrees of posterior slope was kept in the proximal cutting guide. The center of the guide was aligned with the PCL. The stylus was used to assess cut thickness. The medial side, most involved side, was set for a 6mm cut, corresponding to 9mm laterally. This was then held in position and pinned into place with 2 additional pins and a cross pin for stability. The medial and lateral collateral ligaments were protected and the cut was performed. With this completed, it was assessed and noted to be of appropriate dimensions. The guide was removed. A spacer block was inserted and the knee was brought into extension. The 6mm spacer block provided full extension, without hyperextension and with stability of both the medial and lateral collateral ligaments was assessed. The pins from the femur and the tibia were then removed. The distal femur was then sized. The anterior stylus was placed onto the lateral ridge of the anterior femur. This indicated a size 4 femur. The external rotation of the guide was adjusted to 0 degrees to match the epicondylar axis, perpendicular to [place]?s line. The 4-in-1 cutting guide was the placed. The posterior medial femur cut was evaluated and appeared of good thickness. The spacer block was inserted underneath the cutting guide and stability was confirmed in 90 degrees of flexion. An blaze wing was used to confirm appropriate position of the anterior cut to avoid notching. This cutting guide was ensured to be flush on the cut surface and then pinned into place with headed pins. While protecting the soft tissues, quad tendon, and collateral ligaments, the anterior and posterior cuts were performed with a saw. The central two pins were removed and the posterior and anterior chamfers were cut next. The notch-cutting guide was placed. This was pinned to lateralize the femoral component as much as possible while keeping it flush on the cut surface. This was then pinned into position. A reciprocating saw was used to make the notch cut. A rasp smoothed the cut surfaces. The medial and lateral menisci were removed. A trial femoral component was then inserted, impacted down to the cut surfaces, and the lug holes were drilled. A provisional trial tibial component was placed and the knee was brought through range of motion. There was noted to be excellent extension and flexion. There was no significant instability. The patella was tracking without thumbs. A size 6mm polyethylene component provided the best range of motion and stability with less than 2mm gapping with medial and lateral stress and full extension without significant hyperextension. The tibial cut surface was fully exposed. The tibia was then sized as a 3. The tibia had been previously marked during trialing to correspond to the center of the tibial component to help with rotation. The trial was aligned to this tono, approximately rotated to the medial 1/3rd of the tibial tubercle. The trial was pinned into place. The tibia was prepared with a reamer and a keel punch and lug holes. The knee was then brought into extension and the patella was measured as 24mm. Using the patellar clamp and cut guide, this was resected to a flat surface with at least 13mm of thickness remaining. The size 32mm patella fit the best. This was oriented and then clamped into position. The lugs were drilled. The trial components were removed. The final components were opened on the back table. The periosteal and capsular tissues, especially posteriorly, around the knee were then systematically injected with a periarticular cocktail consisting of 246mg of Ropivacaine, 0.5mg of Epinephrine, 0.08mg of Clonidine, and 30mg of Ketorolac, diluted to 100cc. On the back table, with the implants opened. The cement was mixed. One batch of high viscosity cement was prepared with vacuum assistance. After the cement was ready a small amount was placed on the cut surface of the patella and the patellar button was clamped into position and held. The cementless knee components were placed. Starting with the tibial component, the tibia was subluxed anteriorly and the lug holes of the component were lined up. The tibia was then impacted with an impactor and mallet until the tibial component was in contact with the tibia. Then, the femoral component was inserted. The lug holes were aligned and the component was impacted into position. The final polyethylene component was inserted. The knee was irrigated with Surgiphor Betadine solution. This was allowed to sit in the knee for 3 minutes and then it was irrigated out with saline. After the cement had finally cured, approximately 15min, the clamp was removed from the patella and the knee was taken through range of motion. The patella was tracking with a no-thumbs technique. A complete synovectomy was performed around the periphery of the patella. The capsule was then reapproximated with a No. 1 Vicryl at multiple locations. The capsule was finally closed with a No. 2 Stratafix, barbed suture. Deep tissues were then reapproximated with 0 Vicryl and 2-0 Vicryl. The skin was closed with a running 3-0 Monocryl in a subcuticular fashion. This was reinforced with skin glue. A Mepilex silver dressing was applied along with a [id number]-[id number] BRISA wrap. A CryoCuff was applied. Shantal was transferred to the hospital bed without difficulty an suffering no apparent complication. She has a good prognosis. Physical therapy will start today and without restrictions, weight-bearing as tolerated. Aspirin 81mg BID will be used for DVT prophylaxis. Date of Procedure: 04/02/25
[2025-04-02] MEDS: Ondansetron 4 MG/2 ML VIAL IVP ×2 (15:31→19:51)
[2025-04-02] MEDS: Normal Saline Flush 10 ML SYR IV ×2 (15:31→20:48)
--- NOTE | 2025-04-02 16:15 | PTTR_ITS ---
PT Notes Visit Reasons: Left knee DJD Physical Therapy Day Surgery Initial Evaluation Date: [] Referring Doctor: [] PT Orders: PT CONSULT: [] Precautions: [] Patient Profile/Admitting Diagnosis: [] PMHX: [] Social History/Home Situation: [] Equipment Owned/DME: [] Subjective: [] Objective: [] General Observation: [] Mental Status: [] Pain: [] ROM: [] Right Upper Extremity: [] Left Upper Extremity: [] Right Lower Extremity: [] Left Lower Extremity: [] Strength: [] Right Upper Extremity: [] Left Upper Extremity: [] Right Lower Extremity: [] Left Lower Extremity: [] Sensation: [] Bed Mobility/Transfers: [] Supine to sit [] Sit to stand [] Stand to sit [] Bed to chair [] Gait: Deferred. Patient complained of worsening dizziness when she was sat up at edge of bed and requested to lie back in bed. Stars: Deferred. Patient complained of worsening dizziness when she was sat up at edge of bed and requested to lie back in bed. Balance: [] Static Sitting: [] Dynamic Sitting: [] Static Standing: [] Dynamic Standing: [] Special Tests: [] Mobility Limitations Standardized Measure [] [facility]-PAC 6 clicks Basic Mobility Inpatient Short Form: [] Raw Score: [] CMS Score: [] Informed Consent/Education: Patient instructed in purpose of PT consult. Packet containing [] exercise protocol has been given to patient. Education and training on initial set of exercises that can be done at home have been completed with patient. Assessment: Patient presents with clinical signs and symptoms consistent with current/admitting diagnoses that have resulted to mobility limitations, gait instability, generalized weakness, and impairment of motor control as d emonstrated by the following impairment level findings: 1. Decreased strength to left knee major muscle groups 2. Impaired standing balance 3. Limitation of joint range of motion in left knee Impairments are contributing to the following functional limitations: 1. Inability to safely ambulate without assistive device 2. Increase completion time for mobility ADL performance 3. Increased fall risk Patient is assessed as a [] complexity based on the following: History: []-year-old [] with impairment level findings, functional limitations, and past medical history as indicated above Examination: Demonstrable impairment in strength, balance, and mobility level with underlying impairments and functional limitations as documented above Presentation: [] Decision Making: [] Goals: N/A. PT evaluation and 1-2 treatment sessions only for functional mobility training using recommended AD and for HEP instruction. Plan of Care/Treatment Plan: N/A. PT evaluation and 1-2 treatment session only for functional mobility training using recommended AD and for HEP instruction. DISCHARGE RECOMMENDATIONS: [] TREATMENT CODE/TIME: [] Thank you for the opportunity to participate in the care of this patient. Please sign an return this page within 30 days if you agree with the above POC. Thank you! Physician Signature Date [facility]
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
[2025-04-02] MEDS: Aspirin 81 MG CHEW PO (19:52)
[2025-04-02] MEDS: carBAMazepine 200 MG TAB PO (19:52)
[2025-04-02] MEDS: Celecoxib 200 MG CAP PO (19:52)
[2025-04-02] MEDS: ceFAZolin 1 GM/50 ML BAG IVPB (19:53)
--- NOTE | 2025-04-02 19:59 | W.PC.ACHO ---
Registration Status: ADM FELICITY Primary Language: Preferred Language: Tajik Medical / Surgical History (Last Reviewed 04/02/25 @ 08:45 by Nina Zazueta) Tubular adenoma of colon Vitamin D deficiency Thyroid follicular adenoma (Last Reviewed 04/02/25 @ 08:45 by Nina Zazueta) S/P colonoscopy (03/02/22) History of carpal tunnel surgery (02/11/14) H/O bilateral oophorectomy (~02/2004) S/P AARON (total abdominal hysterectomy) (~1993) S/P left knee arthroscopy S/P partial thyroidectomy (~2002) Most Recent Vital Signs Temperature 36.3 C L 04/02/25 18:04 Temperature Source Temporal Artery Scan 04/02/25 18:04 Pulse 72 04/02/25 18:04 Pulse Rhythm Regular 04/02/25 08:20 Pulse 55 L 04/02/25 13:11 Respiratory Rate 14 04/02/25 18:04 Respiratory Depth Normal 04/02/25 08:20 Blood Pressure 127/63 04/02/25 18:04 Blood Pressure Mean 84 04/02/25 18:04 Blood Pressure Position Supine 04/02/25 09:43 Pulse Oximetry 94 04/02/25 18:04 Respiratory End-tidal CO2 45 04/02/25 13:45 Oxygen Delivery Method Room Air 04/02/25 18:04 Oxygen Flow Rate 0 04/02/25 18:04 Pain Level 4 04/02/25 17:30 Allergies Penicillins Allergy (Severe, Verified 04/02/25 08:35) Anaphylaxsis shellfish derived Allergy (Severe, Verified 04/02/25 08:35) Anaphylaxis mushroom Allergy (Intermediate, Verified 04/02/25 08:35) Hives zonisamide Allergy (Intermediate, Verified 04/02/25 08:35) Generalized rash empagliflozin (From Jardiance) Adverse Reaction (Intermediate, Verified 04/02/25 08:35) Yeast infections ibuprofen Adverse Reaction (Intermediate, Verified 04/02/25 08:35) Rectal bleeding prednisone Adverse Reaction (Intermediate, Verified 04/02/25 08:35) lucid dreams Pt did not like how med made her feel. Does not want to take again simvastatin Adverse Reaction (Intermediate, Verified 04/02/25 08:35) Myalgias sulfamerazine Adverse Reaction (Intermediate, Verified 04/02/25 08:35) Myalgias Active Medications Generic Name Dose Route Start Last Admin Trade Name Rohitq PRN Reason Stop Dose Admin Acetaminophen 1,000 mg 04/02/25 06:00 04/02/25 08:50 Acetaminophen 500 Mg Tab PO 04/02/25 23:59 1,000 mg PREOP JON Administration Acetaminophen 1,000 mg 04/02/25 20:00 04/02/25 19:52 Acetaminophen 500 Mg Tab PO 05/02/25 19:59 1,000 mg TID JON Administration Albuterol Sulfate 2.5 mg 04/02/25 12:03 04/02/25 13:46 Albuterol 2.5 Mg/3 Ml Inh Soln Vial UPD 05/02/25 12:02 2.5 mg .X1 DOSE PRN Administration Aspirin 81 mg 04/02/25 20:00 04/02/25 19:52 Aspirin 81 Mg Chew PO 05/02/25 19:59 81 mg BID JON Administration Carbamazepine 200 mg 04/02/25 20:00 04/02/25 19:52 Carbamazepine 200 Mg Tab PO 05/02/25 19:59 200 mg BID JON Administration Celecoxib 400 mg 04/02/25 06:00 04/02/25 08:50 Celecoxib 200 Mg Cap PO 04/02/25 23:59 400 mg PREOP JON Administration Celecoxib 200 mg 04/02/25 20:00 04/02/25 19:52 Celecoxib 200 Mg Cap PO 05/02/25 19:59 200 mg BID JON Administration Gabapentin 300 mg 04/02/25 06:00 04/02/25 08:50 Gabapentin 300 Mg Cap PO 04/02/25 23:59 300 mg PREOP JON Administration Hydromorphone HCl 0 mg 04/02/25 12:03 04/02/25 12:45 Hydromorphone 2 Mg/Ml Syr IVP 05/02/25 12:02 0.5 mg DIRECTED PRN Administration Cefazolin Sodium/Dextrose 2 gm in 50 mls @ 100 mls/hr 04/02/25 06:00 04/02/25 10:40 Ancef Duplex IVPB 04/02/25 23:59 Infused PREOP JON Infusion Tranexamic Acid/Sodium Chloride 1,000 mg in 100 mls @ 600 mls/hr 04/02/25 06:00 04/02/25 10:50 IVPB 04/02/25 23:59 Infused PREOP OJN Infusion Cefazolin Sodium/Dextrose 1 gm in 50 mls @ 100 mls/hr 04/02/25 18:00 04/02/25 19:53 Ancef Duplex IVPB 04/03/25 10:29 100 mls/hr Q8H JON Administration Naloxone HCl 0.04 mg 04/02/25 14:18 04/02/25 14:35 Naloxone 0.4 Mg/Ml Vial IVP 05/02/25 14:17 0.04 mg PRN PRN Administration Pruritis or Nausea/Vomiting Ondansetron HCl 4 mg 04/02/25 11:57 04/02/25 15:31 Ondansetron 4 Mg/2 Ml Vial IVP 05/02/25 11:56 4 mg .X 1 DOSE PRN Administration Nausea Ondansetron HCl 4 mg 04/02/25 19:11 04/02/25 19:51 Ondansetron 4 Mg/2 Ml Vial IVP 4 mg Q4H PRN PRN Administration Sodium Chloride 0 ml 04/02/25 06:00 04/02/25 15:31 Normal Saline Flush 10 Ml Syr IV 04/02/25 23:59 10 ml PRN PRN Administration IV IV Catheter Type [Right Peripheral IV Forearm] IV Catheter Gauge [Right 20 Forearm] Diet Orders Category Date Time Status Regular/Normal [DIET] Nutrition 04/02/25 Lunch Active Rnlin-yi-Razt Documentation Fingerstick Glucose Start: 04/02/25 08:43 Freq: Status: Complete Protocol: Activity Type Activity Date Activity User E-sign Co-sign Detail Recorded Client Recorded Date Recorded By Document 04/02/25 08:42 BKG DAEMON(3) [id number] 04/02/25 08:43 BKG DAEMON(4) Fingerstick Glucose Start: 04/02/25 11:58 Freq: .Stat Status: Active Protocol: Activity Type Activity Date Activity User E-sign Co-sign Detail Recorded Client Recorded Date Recorded By Document 04/02/25 15:24 FS [id number] 04/02/25 16:06 FS Intake and Output - 24 Hour Total 01/22/25 09:05 thru 04/02/25 17:30 Intake Total 1100 Output Total 100 Balance 1000 Weight 80.9 kg Intake: IV 1100 Oral 0 Output: Emesis 0 Estimated Blood Loss 100 Other: Emesis Description None Attestation Statement: By documenting the first initial, last name, and credentials of the reporting nurse below, both parties acknowledge that all relevant information regarding the patient handoff has been communicated, and that all questions have been addressed to ensure continuity and safety of care. Additional Patient Information/Comments: Pt brought to floor from PACU via stretcher. Report received from Isabel MENDIETA. Pt is a/o x 4 on arrival. Declining need for pain meds at this time. Pt was oriented to the room and call slater was placed within reach. Report Received From: ANAM Hall
[2025-04-02] MEDS: Tranexamic Acid 650 MG TAB 1300 MG PO (20:48)
[2025-04-03] MEDS: ceFAZolin 1 GM/50 ML BAG IVPB ×2 (02:56→09:40)
[2025-04-03] MEDS: Normal Saline Flush 10 ML SYR (02:56)
[2025-04-03 03:54] VITALS: BP 105/52; PULSE 69; TEMP 36.6; O2SAT 93
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
[2025-04-03 08:07] VITALS: BP 131/62; PULSE 86; RESP 19; TEMP 36.7; O2SAT 96
[2025-04-03] MEDS: DULoxetine 30 MG CAP 60 MG PO (09:25)
[2025-04-03] MEDS: Levothyroxine 100 MCG TAB PO (09:26)
[2025-04-03] MEDS: Cholecalciferol (Vitamin D3) 1,000 UNIT TAB 2000 UNITS PO (09:26)
[2025-04-03] MEDS: Celecoxib 200 MG CAP PO (09:26)
[2025-04-03] MEDS: Acetaminophen 500 MG TAB 1000 MG PO (09:27)
[2025-04-03] MEDS: carBAMazepine 200 MG TAB PO (09:27)
[2025-04-03] MEDS: Aspirin 81 MG CHEW PO (09:27)
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
--- NOTE | 2025-04-03 09:51 | PT.INTREAT ---
PT Notes Visit Reasons: Left knee DJD Physical Therapy Inpatient Treatment Note Date: 04/03/2025 Precautions: WBAT through left LE with AD. Subjective: At baseline level of alertness. Patient looking forward to going home today. Complained of mild ache in L knee which decreased with mobility performance. Objective: General Observation: BRISA wraps to left knee. Cryocuff to left knee. TDS to right leg and foot. Mental Status: A and O x 4 Pain: 2-3/10 in the L knee Bed Mobility/Transfers: Moderate verbal and tactile cueing provided for use of B hands as needed for support, movement sequence, AD management, and posture to reduce fall risk and minimize pain report Supine to sit stand by assist Sit to stand stand by assist with FWW Stand to sit stand by assist with FWW Bed to chair stand by assist with FWW Gait: Facilitated having great performance of level surface ambulation covering a distance of 350 feet with standby assist and reciprocal step through heel-toe gait pattern using front wheeled walker with no report of dizziness, chest pain, and lightheadedness throughout. Standby assist only of PT. Stairs: Deferred. Patient has 3 ramps at her 3 entrances. Balance: Static Sitting: Normal Dynamic Sitting: Normal Static Standing: Fair Dynamic Standing: Fair THERA EX: Education and training on initial set of exercises that can be done at home have been completed with patient. Trained patient with correct performance of exercises below to maximize motor control, joint flexibility, soft tissue extensibility of the L knee musculature: Access Code: [email or web address] URL: [email or web address] Date: 11/09/2022 Prepared by: Annabel Beavers Exercises - Supine Quad Set - 1 x daily - 7 x weekly - 1 sets - 10 reps - 5 hold - Supine Heel Slide - 1 x daily - 7 x weekly - 1 sets - 10 reps - 5 hold - Supine Ankle Pumps - 1 x daily - 7 x weekly - 1 sets - 10 reps - 5 hold - Small Range Straight Leg Raise - 1 x daily - 7 x weekly - 1 sets - 10 reps - 5 hold - Seated March - 1 x daily - 7 x weekly - 1 sets - 10 reps - 5 hold Assessment: At baseline alertness level which enabled patient to perform mobility tasks of transfers and ambulation using front wheeled walker with standby assist only and minimal verbal cueing for safety. Patient will have a support of her at home as she recovers. DISCHARGE RECOMMENDATIONS: Home when medically cleared by orthopedic surgeon. Recommend outpatient PT services in order to optimize functional mobility outcomes and facilitate return to independent community ambulation without an assistive device. TREATMENT CODE/TIME: 27872 x 15 minutes for 1 unit, 9710 x 10 minutes for 1 unit (09:51?10:18).
--- NOTE | 2025-04-03 09:52 | PDOC.CMDIS ---
Date of service: 04/03/25 Time of Service: 09:52 LACE Index Scoring Tool Questions: Length of Stay (in days): 1 Was the patient admitted via the E.D.?: No Comorbidities: Diabetes w/o Complication E.D. Visits: 0 Answers: Total Score: 2 Risk of Readmission: Low Risk Care Management Discharge Plan Reason for Hospitalization: Left TKR Patient/Family Education Needs: Review of discharge instructions, limitations, follow up plan and discuss Ask Me Three SDOH Health Related Social Needs: Health related social needs lonely/isolated
--- NOTE | 2025-04-03 13:24 | CMPROGNOTE_ITS ---
Date of service: 04/03/25 Time of Service: 13:24 Care Management Progress Note Progress Note Text Progress Note Text: Shanatl was admitted for an elective total knee replacement. The surgery went well however Shantal experienced some post-operative nausea and malaise so remained overnight. She is being discharged home today with no new services. Discharge Potential Discharge Needs: Surgical F/U Appt Anticipated Barriers to Discharge: None Identified Patient/Family Education Needs: Review discharge instructions, discuss Ask Me Three Transportation: Private vehicle Plan: Shantal will be discharged home with no new services. She will follow up with Dr. Massey in 2 weeks and will transport with family. Social Determinants of Health Screening Social Determinants of health last assessed in clinic: 04/03/25 Will the Patient Participate in the Screening?: Yes Do you worry about having a steady place to live?: no Problems where you live: no known problems In the past 12 months, have you had to go without electric, gas, oil or water in your home?: no 1. Within the past 12 months, we worried whether our food would run out before we got money to buy more.: Never true 2. Within the past 12 months, the food we bought just didn't last and we didn't have money to get more.: Never true Has lack of transportation kept you from medical appointments or from doing things needed for daily living?: no Has anyone in your life made you feel unsafe or unsupported?: no How hard is it for you to pay for the very basics like food, housing, medical care, and heating? Would you say it is:: Not hard at all Do you want help finding or keeping work or a job?: I do not need or want help If for any reason you need help with day-to-day activities such as bathing, preparing meals, shopping, managing finances, etc., do you get the help you need?: I don?t need any help How often do you feel lonely or isolated from those around you?: Never Do you speak a language other than Swedish at home?: No Does the patient want assistance with any of the above?: No
== END 2025-04-03 11:14 | disposition home or self-care (01) ==
LOC: MS 04-03 07:35 → SUR 04-03 07:35 → MS 04-03 07:35
PROVIDERS: Admitting Provider Student in an Organized Health Care Education/Training Program; PCP Nurse Practitioner Family; Visit Provider Student in an Organized Health Care Education/Training Program
PROC: (CPT 27447; principal; 2025-04-02 10:30)
DX: M17.12 Unilateral primary osteoarthritis, left knee (principal); G89.18 Other acute postprocedural pain; E11.40 Type 2 diabetes mellitus with diabetic neuropathy, unspecified; E78.5 Hyperlipidemia, unspecified; I35.1 Nonrheumatic aortic (valve) insufficiency; F33.9 Major depressive disorder, recurrent, unspecified; G43.909 Migraine, unspecified, not intractable, without status migrainosus; M79.7 Fibromyalgia; F43.10 Post-traumatic stress disorder, unspecified; E66.9 Obesity, unspecified; E89.0 Postprocedural hypothyroidism; Z68.31 Body mass index [BMI] 31.0-31.9, adult; Z79.85 Long-term (current) use of injectable non-insulin antidiabetic drugs; Z87.891 Personal history of nicotine dependence; Z79.899 Other long term (current) drug therapy
CPT/HCPCS: 27447; 64447; 96365; 96366; 97110; 97162; 97530; C1776; G0378; J0665; J0666; J0690; J1100; J2250; J2312; J2371; J2405; J2704; J7613